=== PATIENT | male | born 1940 | race Caucasian/White ===

== ENCOUNTER 2023-09-26 16:01 | Inpatient (IN) | payer MEDICARE, SELFPAY ==
[2023-09-26] VITALS (13 sets, daily range): BP systolic 77–122; BP diastolic 50–69; BMI 32.6
[2023-09-26 12:03] LABS: % Basophils 0.1 % (0-2); % Eosinophils 0.1 % (0-6); % Immature Granulocytes 0.5 % (0-0.5); % Monocytes 8.3 % (1.7-9.3); Absolute Immature Granulocytes 0.1 10^3/uL (0-0.05); Absolute Lymphocytes 1.6 10^3/uL (1.2-3.4); Absolute Monocytes 1.2 10^3/uL (0.1-0.6); Absolute Neutrophils 11.5 10^3/uL (1.4-6.5); Hematocrit 28.5 % (39.0-52.0); Hemoglobin 9.3 g/dL (13.0-18.0); Mean Corp Hgb Conc. 32.6 g/dL (33.0-37.0); Mean Corpuscular Hgb 31.2 pg (27.0-31.0); Mean Corpuscular Volume 95.6 fL (80.0-94.0); Mean Platelet Volume 11.1 fL (7.4-10.4); Nucleated Red Blood Cells % 0 % (-); Platelet Count 420 10^3/uL (130-400); Red Blood Cell Count 2.98 10^6/uL (4.70-6.10); Red Cell Dist. Width 16.3 % (11.5-14.5); White Blood Cell Count 14.4 10^3/uL (4.8-10.8)
[2023-09-26] MEDS: TYLENOL 1000 MG PO (12:09)
[2023-09-26 12:16] LABS: Lactic Acid 2.5 mmol/L (0.7-2.0)
[2023-09-26 12:20] LABS: ALT (SGPT) 16 U/L (0-50); AST (SGOT) 20 U/L (17-59); Albumin 3.9 g/dl (3.5-5.0); Alkaline Phosphatase 78 U/L (38-126); Blood Urea Nitrogen 31 mg/dl (9-20); Calcium 9.2 mg/dl (8.4-10.2); Carbon Dioxide 22 mmol/L (22-30); Chloride 101 mmol/L (98-107); Estimated Creatinine Clearance 56 ml/min; Glucose 111 mg/dl (70-99); Potassium 3.8 mmol/L (3.5-5.1); Sodium 137 mmol/L (135-145); Total Bilirubin 1.4 mg/dl (0.2-1.3); Total Protein 7.5 g/dl (6.3-8.2); eGFR 50.49
--- NOTE | 2023-09-26 12:51 | ED.GENMED ---
History of Present Illness
General
Chief Complaint: Skin Problem
Time Seen by Provider: 09/26/23 12:23
Travel History
Have you had any contact with someone who has COVID-19?: No
Do you have any symptoms of coronavirus? Fever > 100 degrees, chills, cough, shortness of breath, sore throat, loss of taste or smell, muscle aches, or headache?: No
History of Present Illness
History of Present Illness:
HPI: Patient presents with ongoing/worsening right buttock wound. He is found to be febrile. The patient is currently residing at [facility]. He denies urinary symptoms and denies any pneumonia type of symptoms.
EXAM:
GENERAL: The patient appears chronically ill and generally debilitated. Elevated BMI noted.
HEENT: Moist oral mucosa
CARDIOVASCULAR: No murmurs, normal heart rate, regular rhythm, No chest wall tenderness
PULMONARY: No respiratory distress, breath sounds are clear and equal
ABDOMEN: Soft with no peritoneal signs, no tenderness
NEUROLOGIC: Fair strength all extremities, no coordination deficits
PSYCHIATRIC: Appropriate mental status, normal insight and judgement
EXTREMITIES: Nontender, no edema, moves all extremities equally
SKIN: There is a large area of indurated tissue versus abscess with overlying erythema to the right buttock
TIME OF INITIAL ENCOUNTER: 12:45 PM
NUMBER AND COMPLEXITY OF PROBLEMS ADDRESSED AT THE ENCOUNTER
� Chronic conditions affecting care: High blood pressure, morbid obesity, diabetes, polyneuropathy
� Acute Exacerbation and/or Progression of Chronic Illness: This is an acute problem
� Differential Diagnosis includes: Cellulitis, sepsis, bacteremia, abscess
AMOUNT AND/OR COMPLEXITY OF DATA TO BE REVIEWED AND ANALYZED
� I performed an independent evaluation of and my interpretation is:
EKG:
CT: CT personally reviewed and shows marked inflammatory changes at the right buttock without abscess
X-rays:
Laboratory Studies: White count 14.4, hemoglobin 9.3, creatinine 1.4, lactic 2.5
Other:
� Review of other/old records: I reviewed the transfer/discharge report from [facility]
� Clinical information was obtained by an independent historian: None needed
� Prescriptions/Medications Considered but not given:
� Further testing considered but not performed:
RISK OF COMPLICATIONS AND/OR MORBIDITY OR MORTALITY OF PATIENT MANAGEMENT
� Social determinants of health affecting care: The patient presents from [facility]
� Discussion with other providers: Hospitalist for admission at 2:35 PM
� Escalation of care including admission/observation vs risk of discharge considered: The patient is likely septic. He is febrile with leukocytosis and has an elevated lactic acid. I have ordered vancomycin as I am concerned
for infection of the right buttock. We gave IV fluids. On reassessment at 2:40 PM, the patient appears fairly comfortable.
Phy Exam
Physical Exam
Physical Exam:
See HPI
Course
Orders/Labs/Results
Orders:
Orders
09/26/23 11:41
Electrocardiogram (*1) Urgent
Reason for Study: Other
Other Reason for Exam: Possible Sepsis
Cardiac Monitoring- Treatment ONCE
EKG- Treatment ONCE
IV Insert/Care/Rem.- Treatment PRN
O2 Therapy [RESP] Urgent
Titrate/Wean O2 to maintain O2 sat greater than (%): 93
Special Instructions: TO MAINTAIN CONTINUOUS O2 SATS > OR = 93%
Pulse Ox/cont/shift [RESP] Urgent
Quantity: 1
Special Instructions: CONTINUOUS
09/26/23 11:45
Blood Culture Q30M
CAROLY[facility] Source: Blood/Venous
Specimen Description:
Comment: FROM 2 SEPARATE SITES
09/26/23 11:46
Complete Blood Count/With Diff Urgent
Comprehensive Metabolic Panel Urgent
Lactic Acid Q4H
Comment: ON ICE, CANCEL 2ND ORDER IF FIRST LACTIC ACID LEVEL <2
Blood Culture Q30M
CAROLYNE Source: Blood/Venous
Specimen Description:
Comment: FROM 2 SEPARATE SITES
09/26/23 12:02
Acetaminophen [Tylenol] 1,000 mg PO NOW STA
09/26/23 12:49
CT Pelvis With Iv Contrast Urgent
Comment:
Reason For Exam: sepsis, eval R buttock abscess vs cellulitis
0.9% Sodium Chloride 1000 ml [Nss] 1,000 ml IV BOLUS
09/26/23 14:31
Vancomycin [Vancocin] 2,000 mg 0.9% Sodium Chloride 500 ml [Nss] 500 ml IV NOW
09/26/23 14:35
Wound Culture [Wound/Abscess/Other Culture] Urgent
CAROLYNE Source: Decubitis Ulcer
Specimen Description:
09/26/23 15:45
Lactic Acid Q4H
Comment: ON ICE, CANCEL 2ND ORDER IF FIRST LACTIC ACID LEVEL <2
Abnormal Lab Results
09/26/23
11:46
WBC 14.4 H 10^3/uL
(4.8-10.8)
RBC 2.98 L 10^6/uL
(4.70-6.10)
Hgb 9.3 L g/dL
(13.0-18.0)
Hct 28.5 L %
(39.0-52.0)
MCV 95.6 H fL
(80.0-94.0)
MCH 31.2 H pg
(27.0-31.0)
MCHC 32.6 L g/dL
(33.0-37.0)
RDW 16.3 H %
(11.5-14.5)
Plt Count 420 H 10^3/uL
(130-400)
MPV 11.1 H fL
(7.4-10.4)
Abs Immat Gran (auto) 0.1 H 10^3/uL
(0-0.05)
Absolute Neuts (auto) 11.5 H 10^3/uL
(1.4-6.5)
Absolute Monos (auto) 1.2 H 10^3/uL
(0.1-0.6)
Neutrophils % 80.0 H %
(42.2-75.2)
Lymphocytes % 11.0 L %
(20.5-51.1)
BUN 31 H mg/dl
(9-20)
Creatinine 1.4 H mg/dL
(0.7-1.3)
Glucose 111 H mg/dl
(70-99)
Lactic Acid 2.5 H mmol/L
(0.7-2.0)
Total Bilirubin 1.4 H mg/dl
(0.2-1.3)
09/26/23 11:46
09/26/23 11:46
Vital Signs
Initial and Last Documented VS:
Initial Vital Signs
Temp Resp
102.5 F H 16
09/26/23 11:38 09/26/23 11:38
Last Documented Vital Signs
Temp Pulse Resp BP Pulse Ox
102.5 F H 93 21 109/61 94
09/26/23 11:38 09/26/23 12:30 09/26/23 12:30 09/26/23 11:41 09/26/23 12:15
*Critical Care Note
Total Time (30-74mins, 75-104mins- exclusive of procedures): Not Applicable
ED Attending Note
-
Portions of this chart may have been created with voice recognition software.� Occasional wrong word or��sound alike� substitutions may have occurred due to the inherent limitations of voice recognition software.
Discharge Plan
Departure
Patient Disposition: Admit
Date of Disposition: 09/26/23
Time of Disposition: 14:37
Presentation/result/management discussed w/ accepting MD/DO: Hospitalist
Discharge Problem:
Sepsis
Referrals:
Payam De Souza I., DO [Family Provider] -
Interventions
Interventions:
*Risk Screen - Suicide Last Done: 09/26/23 11:38
*General Assessment Last Done: 09/26/23 11:38
*Neglect/Abuse Screening Last Done: 09/26/23 11:38
*ED COVID-19 Vaccine History Last Done: 09/26/23 11:38
Discharge Date and Time
Print Language: YAKUT
[2023-09-26] MEDS: NSS 1000 IV ×4 (13:23→18:29)
[2023-09-26] MEDS: VANCOCIN 540 MG IV (15:30)
[2023-09-26 15:41] LABS: Lactic Acid 1.5 mmol/L (0.7-2.0)
--- NOTE | 2023-09-26 15:44 | W.PN.UPDATE ---
Update Note
Progress Note Update
I saw and examined the patient.
The MANAGER PRIMARY CARE or PA's note was reviewed and I agree with the note.
Comment: 83-year-old male who presents from his [place] [facility] with a chief complaint of worsening right buttock wound and fever.
91/54, 78, 16, 102.5 �F, 95% on room air
No acute distress, awake and alert
Regular rate and rhythm, normal S1-S2
Clear to auscultation bilaterally
Right buttock with ulcer that is approximately 3 cm in diameter. There is no drainage. There is surrounding cellulitis and induration without fluctuance.
Lab Results
24 09/26/23
11:46 15:19
WBC 14.4 H
RBC 2.98 L
Hgb 9.3 L
Hct 28.5 L
MCV 95.6 H
MCH 31.2 H
MCHC 32.6 L
RDW 16.3 H
Plt Count 420 H
MPV 11.1 H
Abs Immat Gran (auto) 0.1 H
Absolute Neuts (auto) 11.5 H
Absolute Lymphs (auto) 1.6
Absolute Monos (auto) 1.2 H
Absolute Eos (auto) 0.0
Absolute Basos (auto) 0.0
Immature Gran % 0.5
Neutrophils % 80.0 H
Lymphocytes % 11.0 L
Monocytes % 8.3
Eosinophils % 0.1
Basophils % 0.1
Nucleated RBC % 0
Sodium 137
Potassium 3.8
Chloride 101
Carbon Dioxide 22
BUN 31 H
Creatinine 1.4 H
Estimated Creat Clear 56
eGFR 50.49
Glucose 111 H
Lactic Acid 2.5 H 1.5
Calcium 9.2
Total Bilirubin 1.4 H
AST 20
ALT 16
Alkaline Phosphatase 78
Total Protein 7.[address] pelvis: Marked edematous/inflammatory changes of the superficial right gluteal soft tissues without findings to confirm accompanying well-formed abnormal focal fluid collection.
Severe sepsis due to R buttock cellulitis:
-IV Vanco/Zosyn
-30cc/kg NS bolus followed by maintenance IVFs
-follow WCx/BCxs
-c/s ID
-trend lactic acid and WBC
--- NOTE | 2023-09-26 15:45 | HPS.HSE ---
Family Physician
-
Family Physician: Payam De Souza
Chief Complaint
-
wound
History of Present Illness
83-year-old with past medical history for DVT, hypertension, insomnia, PVD, type 2 diabetes, hyperlipidemia, depression presented to us with right buttock wound for 1 year. It progressively got worse. Yesterday started bothering him. Patient
denied any fever or chills, chest pain, short of breath. Patient denied any, dizziness, syncopal episode patient denied abdominal pain, nausea, vomiting, diarrhea.. Denied dysuria hematuria.
On arrival patient was in sepsis. Received fluids, Zosyn, Vanco in ER admitting for further management.
Medical History
Past Medical History
Past Medical History: Reports Other
Additional Past Medical History:
DVT
Hypertension
Insomnia
PVD
Type 2 diabetes
Hyperlipidemia
Depression
Past Surgical History: Reports None
Additional Past Surgical History:
Appendectomy
Social History
Tobacco: Non-smoker
Alcohol: None
Drug: None
Personal: Single
Living: Halfway
Family History
Family History: Not pertinent
Allergies / Home Medications
Allergies reflects when Allergies were last updated in [employer].
Home Medications with original date entered in [employer]
Allergy/Medication List:
Allergies
Allergy/AdvReac Type Severity Reaction Status Date / Time
No Known Allergies Allergy Unverified 09/26/23 11:41
Home Medications
acetaminophen 325 mg tablet (Tylenol) 650 mg PO Q6HPRN PRN mild pain 09/26/23
apixaban 5 mg tablet (Eliquis) 5 mg PO BID 09/26/23
atorvastatin 10 mg tablet (Lipitor) 10 mg PO DAILY 09/26/23
bisacodyl 10 mg rectal suppository (Dulcolax (bisacodyl)) 10 mg CO DAILYPRN PRN if no bm aftr mom 09/26/23
cetirizine 10 mg tablet (Zyrtec) 10 mg PO DAILY 09/26/23
cholecalciferol (vitamin D3) 50 mcg (2,000 unit) tablet (Vitamin D3) 50 mcg PO DAILY 09/26/23
dextromethorphan-guaifenesin 10 mg-100 mg/5 mL oral syrup 10 ml PO Q6HPRN PRN cough 09/26/23
hydrochlorothiazide 25 mg tablet 25 mg PO DAILY 09/26/23
loperamide 2 mg tablet 2 mg PO Q6HPRN PRN diarrhea 09/26/23
losartan 50 mg tablet 50 mg PO DAILY 09/26/23
magnesium hydroxide 400 mg/5 mL oral suspension (Milk of Magnesia) 2,400 mg PO HSPRN PRN if no bm on 3rd day 09/26/23
metformin 1,000 mg tablet 1,000 mg PO BID 09/26/23
metoprolol tartrate 50 mg tablet (Lopressor) 50 mg PO BID 09/26/23
psyllium 1 packet PO DAILY 09/26/23
sitagliptin phosphate 100 mg tablet (Januvia) 100 mg PO DAILY 09/26/23
therapeutic multivitamin 1 tab PO DAILY 09/26/23
venlafaxine 150 mg capsule,extended release 24 hr (Effexor XR) 150 mg PO DAILY 09/26/23
zolpidem 10 mg tablet 10 mg PO HS 09/26/23
Review of Systems
-
Constitutional: Reports No Symptoms
EENT: Reports No Symptoms
Respiratory: Reports No Symptoms
Cardiac: Reports No Symptoms
Abdomen/GI: Reports No Symptoms
: Reports No Symptoms
Musculoskeletal: Reports No Symptoms
Skin: Reports Other (Buttocks wound)
Neurological: Reports No Symptoms
Endocrine: Reports No Symptoms
Hematologic/Lymphatic: Reports No Symptoms
Psych: Reports No Symptoms
Physical Exam
Vital Signs
Vital Signs
Temp Pulse Resp BP Pulse Ox
99.5 F 78 16 91/54 95
09/26/23 15:38 09/26/23 15:35 09/26/23 15:35 09/26/23 15:13 09/26/23 15:05
Physical Exam
General: Well Developed, Well Nourished and No Apparent Distress
HEENT: NormoCephalic, Moist mucous membranes and Atraumatic
Respiratory: Clear
Cardiac: S1/S2 and Regular Rhythm; No Murmur or Rub
GI: Soft, Non Tender, Non Distended and Normal Bowel Sounds; No Organomegaly
Rectal: Deferred by Provider
Musculoskeletal: No Clubbing, No Cyanosis and No Edema
Skin: Rash and Other (Buttock wound. Bilateral lower extremities scaly skin)
Neuro: AO x 3 and Nonfocal/grossly intact
Psych: Calm
Laboratory Results
-
09/26/23 11:46
09/26/23 11:46
Laboratory Results
Lactic Acid 1.5 mmol/L (0.7-2.0) 09/26/23 15:19
Total Bilirubin 1.4 mg/dl (0.2-1.3) H 09/26/23 11:46
AST 20 U/L (17-59) 09/26/23 11:46
ALT 16 U/L (0-50) 09/26/23 11:46
Alkaline Phosphatase 78 U/L (38-126) 09/26/23 11:46
Data Reviewed
-
Diagnostic Radiology: Report Reviewed by me
Lab Data: Labs Reviewed by me
Impression/Plan
-
# Sepsis secondary to cellulitis wound
-Sepsis as evident by fever, elevated WBC, elevated lactic acid, hypertension
-Fluids continued
-IV Vanco and Zosyn continued
-Tylenol as needed for fever
-Trend lactic
-Wound culture sent from ER
-Blood culture sent from ER
-ID and wound care consulted
-Pelvis CT with Marked edematous/inflammatory changes of the superficial right gluteal soft tissues without findings to confirm accompanying well-formed abnormal focal fluid collection.
# Anemia likely chronic
-Hemoglobin stable at 9.3
-Continue to monitor
# Acute kidney injury likely dehydration
-Creatinine 104
-Fluids continued
-Monitor BMP in a.m.
# History of DVT
-Eliquis continued
#hyperlipidemia
-Statin continued
# History of hypertension
-Patient is hypotensive in ER
-hold losartan and HCTZ
# Type 2 diabetes
- hold metformin and Januvia
-Sliding scale
-Carb controlled diet
#depression
-Effexor continued
# CODE STATUS
-Full code
--- NOTE | 2023-09-26 16:19 | CON.ID ---
Consultation
-
Date/Time Consultation Requested: 09/26/2023 1530
Date/Time Consultation Performed: 09/26/2023 1600
Requesting Provider: Anastacia Barbosa
Performing Provider: Dr. Young
Reason for Consultation: Right buttock wound
Chief Complaint / Past History
History of Present Illness
Félix Whitlock is an 83-year-old man with a significant past medical history of spinal stenosis and functional paraplegia being evaluated at the request of Anastacia Barbosa regarding a right buttock abscess. History is obtained from chart review, along with
patient interview.
The patient reports that he has been nonambulatory for approximately the past 5 years secondary to spinal stenosis. He has been a resident of multiple nursing facilities, and most recently was admitted to [facility] approximately 8 weeks ago.
He was sent to the emergency room today secondary to an ongoing and worsening right buttock wound noted at the facility. He reports that he has had this wound for some period of time, although he cannot characterize how long. He reports that it
has been growing in size and ultimately he was sent in for further evaluation. Here he was found to have a leukocytosis, and was noted to be febrile to 102.5 degrees upon presentation.
He currently denies fevers prior to admission. He denies any pain in the area. He notes that he is wheelchair-bound for most of the day or in bed or sitting on the side of the bed.
Past History
Additional Past Medical History:
Spinal stenosis
Functional paraplegia/wheelchair-bound
Additional Past Surgical History:
Lumbar laminectomy
Cervical laminectomy
Appendectomy
Allergy History:
No Known Allergies Allergy (Unverified 09/26/23 11:41)
Medications Reviewed: Yes
Current Antibiotics:
Vanco
Zosyn
Social History
Tobacco: Non-Smoker
Alcohol: None
Personal:
Living: Long Term
Employment: Retired
Family History
Family History: Not Pertinent
Review of Systems
Vital Signs
Temp Pulse Resp BP Pulse Ox
99.5 F 75 16 97/51 95
09/26/23 15:38 09/26/23 16:15 09/26/23 15:35 09/26/23 16:00 09/26/23 15:05
Physical Exam
Physical Exam
Constitutional: Comfortable, Chronically Ill and Non-toxic
Eyes: No Conjunctival Hemorrhage and Sclera Anicteric
Cardiovascular: S1/S2; Negative S3/S4
Pulmonary: Non Labored
Gastrointestinal: Soft, Non Tender, Non Distended and Normal Bowel Sounds
Wound: Other (Right buttock/ischial wound, currently unstageable with 2 to 3 cm overlying eschar, surrounding induration and erythema.)
Neurological: Awake and Alert
Psychological: Calm
Lab / Diagnostic Study Results
09/26/23 11:46
09/26/23 11:46
Abs Immat Gran (auto) 0.1 10^3/uL (0-0.05) H 09/26/23 11:46
Absolute Neuts (auto) 11.5 10^3/uL (1.4-6.5) H 09/26/23 11:46
Absolute Lymphs (auto) 1.6 10^3/uL (1.2-3.4) 09/26/23 11:46
Absolute Monos (auto) 1.2 10^3/uL (0.1-0.6) H 09/26/23 11:46
Absolute Basos (auto) 0.0 10^3/uL (0-0.2) 09/26/23 11:46
Immature Gran % 0.5 % (0-0.5) 09/26/23 11:46
Neutrophils % 80.0 % (42.2-75.2) H 09/26/23 11:46
Lymphocytes % 11.0 % (20.5-51.1) L 09/26/23 11:46
Monocytes % 8.3 % (1.7-9.3) 09/26/23 11:46
Eosinophils % 0.1 % (0-6) 09/26/23 11:46
Basophils % 0.1 % (0-2) 09/26/23 11:46
Lactic Acid 1.5 mmol/L (0.7-2.0) 09/26/23 15:19
Microbiology Results
Micro:
09/26/23 15:19 Wound Culture - Pending
Decubitis Ulcer Gram Stain - Pending
09/26/23 15:19 Blood Culture - Pending
Blood/Venous
09/26/23 11:46 Blood Culture - Pending
Blood/Venous
Imaging:
09/26/2023 CT pelvis with IV contrast: Marked edematous/inflammatory changes of the superficial right gluteal soft tissues, without findings to confirm accompanying well-formed abnormal focal fluid collection. Please see full dictation for
additional detail.
Assessment / Plan
Right buttock pressure wound (unstageable secondary to overlying eschar)
Fever
Leukocytosis
Renal insufficiency
Spinal stenosis
Functional paraplegia/wheelchair-bound
Recommendations:
Agree with initiation of broad-spectrum empiric antibiotics (vancomycin; Zosyn)
While patient remains on vancomycin, follow levels closely to prevent renal toxicity.
Would recommend surgical evaluation as overlying eschar may need to be unroofed to determine extent / stage of pressure ulcer.
Wound culture has been obtained; will await further results to guide antibiotic selection/de-escalation. Of note, culture is superficial only and may not reflect underlying organisms.
Follow white count and temperature curve.
[2023-09-26 17:56] LABS: Glucose - Point of Care 85 mg/dl (70-99)
--- NOTE | 2023-09-26 18:21 | PTCARENOTE ---
Pt admitted from ED. Buttock wound x2 on right button, one large, one small. foams placed. Pt unable to void. Bladder scan >600. mcbrdie placed with 1000ml output. vital signs stable. oriented to unit. resting comfortably
[2023-09-26] MEDS: NOVOLOG FLEXPEN-LOW RESISTANCE SC (18:23)
[2023-09-26] MEDS: ZOSYN 50 IV ×2 (18:28→21:58)
--- NOTE | 2023-09-26 19:37 | PHA.VAN.IN ---
Assessment
- Assessment
Renal Function: Unknown baseline (Scr elevated)
Maximum Temperature: 102.5
Concomitant Antimicrobials: Piperacillin/tazobactam
AUC Dosing Plan
- Monitoring
Will order random level for 6/1 AM to assess clearance with renal function.
Plan
- Plan
Initial / Loading Dose: Vancomycin 2000mg given at 1530
Will initially dose by level due to elevated Scr.
Pharmacokinetics Vancomycin I
- -
Patient Age: 83
Patient Sex: Male
Vancomycin Day #: 1
Indication: Skin And Soft Tissue
Requesting Provider: Dr. Young
Pertinent Antimicrobial Allergies:
NKA
Height / Weight:
Height 6 ft 2 in
Actual Weight 115 kg
Pertinent Past Medical History: BMI ~33, functional paraplegia, [place]
- Vital Signs / Lab Results
Temp Pulse Resp BP Pulse Ox
97.9 F 80 15 122/69 92
09/26/23 19:31 09/26/23 18:00 09/26/23 18:00 09/26/23 18:00 09/26/23 16:48
Lab Results - Hematology
09/26/23
11:46
WBC 14.4 H
Lab Results - Chemistry
09/26/23
11:46
BUN 31 H
Creatinine 1.4 H
Estimated Creat Clear 56
Albumin 3.9
09/26/23 09/26/23
11:46 15:19
Lactic Acid 2.5 H 1.5
Microbiology Results
09/26/23 15:19 Gram Stain - Preliminary
Decubitis Ulcer
[2023-09-26] MEDS: ELIQUIS 5 MG PO (20:48)
[2023-09-26 21:44] LABS: Glucose - Point of Care 112 mg/dl (70-99)
--- NOTE | 2023-09-26 21:48 | PTCARENOTE ---
Received pt at change of shift. AAOx3. Pt offers no complaints. Turned pt onto right side using an air cushion; able to tolerate this turn. Foam on buttock C/D/I. Resting in bed with call elizabeth in reach.
[2023-09-27] VITALS (12 sets, daily range): BP systolic 96–151; BP diastolic 50–94
[2023-09-27 04:28] LABS: Hematocrit 25.1 % (39.0-52.0); Hemoglobin 8.3 g/dL (13.0-18.0); Mean Corp Hgb Conc. 33.1 g/dL (33.0-37.0); Mean Corpuscular Volume 96.9 fL (80.0-94.0); Mean Platelet Volume 10.9 fL (7.4-10.4); Platelet Count 362 10^3/uL (130-400); Red Blood Cell Count 2.59 10^6/uL (4.70-6.10); Red Cell Dist. Width 16.5 % (11.5-14.5); White Blood Cell Count 9.5 10^3/uL (4.8-10.8)
[2023-09-27 04:54] LABS: Vancomycin Random 11.7 ug/ml
[2023-09-27 05:00] LABS: Blood Urea Nitrogen 24 mg/dl (9-20); Calcium 8.4 mg/dl (8.4-10.2); Carbon Dioxide 18 mmol/L (22-30); Chloride 109 mmol/L (98-107); Estimated Creatinine Clearance 78 ml/min; Glucose 87 mg/dl (70-99); Potassium 3.9 mmol/L (3.5-5.1); Sodium 137 mmol/L (135-145); eGFR > 60.00
[2023-09-27] MEDS: ZOSYN 50 IV ×4 (05:20→21:07)
--- NOTE | 2023-09-27 08:01 | W.PN.HOSP.TC ---
Today's Communication/Plan
-
see bold
Assessment / Plan
Assessment / Plan
Gen: NAD, AAOx3, appears chronically ill.
Eyes: EOMI, PERRLA, no scleral icterus.
Neck: supple.
CV: RRR, +S1/S2, no m/r/g.
Resp: CTAB, no rales, wheezes, or rhonchi.
Abd: +BS, soft, NT, ND
Skin: B/L LE chronic venous stasis dermatitis
Neuro: CN 2-12 intact, non-focal.
Psych: Normal mood and affect.
09/26/23 15:19 Blood/Venous Blood Culture - Preliminary
Positive culture in progress
09/26/23 15:19 Blood/Venous Gram Stain - Preliminary
09/26/23 11:46 Blood/Venous Blood Culture - Preliminary
Positive culture in progress
09/26/23 11:46 Blood/Venous Gram Stain - Final
09/26/23 15:19 Decubitis Ulcer Gram Stain - Preliminary
CT pelvis: Marked edematous/inflammatory changes of the superficial right gluteal soft tissues without findings to confirm accompanying well-formed abnormal focal fluid collection.
Severe sepsis due to R buttock cellulitis:
-IV Vanco/Zosyn as per ID
-30cc/kg NS bolus given on admission, cont maintenance IVFs
-follow WCx/BCxs. Repeat BCxs 09/28/23AM.
-leukocytosis and lactic acidosis have resolved
Other problems:
Obesity due to excess calories: Encourage wt loss, affects all aspects of care
Chronic anemia: Trend Hb (acute drop likely dilutional at this point)
JUAN due to sepsis/dehydration: Improving with IVFs. Trend HCO3-
h/o DVT: cont Eliquis
HLD: cont statin
Essential hypertension: Holding antihypertensives
DM2: SSI/accuchecks. Check a1c.
Depression: cont Effexor
FULL/Eliquis
Anticipated Discharge: > 48 hours
Subjective/Interval History
-
Date of Service: September 27, 2023
No new complaints.
Objective Data
-
Labs:
Laboratory Results
09/27/23
04:17
WBC 9.5
Hgb 8.3 L
Hct 25.1 L
Plt Count 362
Sodium 137
Potassium 3.9
Chloride 109 H
Carbon Dioxide 18 L
BUN 24 H
Creatinine 1.0
Glucose 87
Calcium 8.4
Vital Signs:
Vital Signs
Temp Pulse Resp BP Pulse Ox
98.7 F 89 15 132/67 100
09/27/23 07:00 09/27/23 06:00 09/27/23 06:00 09/27/23 06:00 09/27/23 06:00
I&O
09/26/23 09/27/23 09/28/23
06:59 06:59 06:59
Intake Total 1060 / 1060
Output Total 2400 / 2400
Balance -1340 / -1340
[2023-09-27] MEDS: NOVOLOG FLEXPEN-LOW RESISTANCE SC ×3 (08:10→16:38)
[2023-09-27 08:12] LABS: Glucose - Point of Care 99 mg/dl (70-99)
--- NOTE | 2023-09-27 08:27 | W.PN.ID1 ---
Date of Service
Date of Service: September 27, 2023
Today's Communication
Continue antibiotics. See below�
Assessment / Plan
Right buttock pressure wound (unstageable secondary to overlying eschar)
Bacteremia with gram-positive cocci
Fever
Leukocytosis
Renal insufficiency
Spinal stenosis
Functional paraplegia/wheelchair-bound
Recommendations:
Continue with vancomycin and Zosyn.
Repeat blood cultures now.
While patient remains on vancomycin, follow levels closely to prevent renal toxicity.
--> Would recommend surgical evaluation as overlying eschar may need to be unroofed to determine extent / stage of pressure ulcer.
Wound culture has been obtained; will await further results to guide antibiotic selection/de-escalation. Of note, culture is superficial only and may not reflect underlying organisms.
Follow white count and temperature curve.
����������������������������������������������������������
Chief Complaint
-: Bacteremia and Other (Right buttock wound infection)
Subjective / Review of Systems
Review of Systems: No Fever and No Chills
Vital Signs / Physical Exam
Vital Signs
Vital Signs
Temp Pulse Resp BP Pulse Ox
98.7 F 89 15 132/67 100
09/27/23 07:00 09/27/23 06:00 09/27/23 06:00 09/27/23 06:00 09/27/23 06:00
Physical Exam
Constitutional: No Acute Distress, Comfortable, Chronically Ill and Non-toxic
Eyes: No Conjunctival Hemorrhage and Sclera Anicteric
Cardiovascular: S1/S2; Negative S3/S4
Pulmonary: Clear and Non Labored; Negative Wheezes, Rales or Rhonchi
Gastrointestinal: Soft and Non Tender
Wound: Other (Right buttock wound dressed.)
Neurological: Awake and Alert
Psychological: Calm
Objective Data
Lab Data
Lab Results
09/27/23 04:17
09/27/23 04:17
Estimated Creat Clear 78 ml/min 09/27/23 04:17
Lactic Acid 1.5 mmol/L (0.7-2.0) 09/26/23 15:19
Total Bilirubin 1.4 mg/dl (0.2-1.3) H 09/26/23 11:46
AST 20 U/L (17-59) 09/26/23 11:46
ALT 16 U/L (0-50) 09/26/23 11:46
Alkaline Phosphatase 78 U/L (38-126) 09/26/23 11:46
Most recent labs reviewed.
Micro Results:
09/26/23 15:19 Blood Culture - Preliminary
Blood/Venous Positive culture in progress
Gram Stain - Preliminary
09/26/23 11:46 Blood Culture - Preliminary
Blood/Venous Positive culture in progress
Gram Stain - Final
09/26/23 19:41 MRSA Screen - Pending
Nose
09/26/23 15:19 Wound Culture - Pending
Decubitis Ulcer Gram Stain - Preliminary
Imaging:
09/26/2023 CT pelvis with IV contrast: Marked edematous/inflammatory changes of the superficial right gluteal soft tissues, without findings to confirm accompanying well-formed abnormal focal fluid collection. Please see full dictation for
additional detail.
--- NOTE | 2023-09-27 08:27 | PHA.VAN.FU ---
Vancomycin Assessment / Plan
- Assessment
Renal Function: SCR Decreasing (SCr 1.4 ->1.0 unknown baseline)
WBC's are: WNL
In the past 24 hrs, patient has been: Febrile (102.5 on admission)
Concomitant Antimicrobials: piperacillin-tazobactam
- Assessment - Therapeutic Drug Monitoring
Random Level: 11.7 - 13 hours post vanc 2000 mg
- Dosing Plan
Continue: to dose by level
Dosing by Level: Re-dose today (1500 mg (13 mg/kg))
Continuing to dose by level due to unknown baseline SCr and functional paraplegia
- Monitoring Plan
Random Level: 6/2 am
- Follow Up
Pharmacy will continue to follow.
Vancomycin Follow UP
- -
Patient Age: 83
Patient Sex: Male
Vancomycin Day #: 2
Indication: Skin And Soft Tissue
Requesting Provider: Dr. Young
Pertinent Antimicrobial Allergies:
NKA
Height / Weight:
Height 6 ft 2 in
Actual Weight 115 kg
Pertinent Past Medical History: BMI ~33, functional paraplegia, [place] resident
- Vital Signs / Lab Results
Temp Pulse Resp BP Pulse Ox
98.7 F 89 15 132/67 100
09/27/23 07:00 09/27/23 06:00 09/27/23 06:00 09/27/23 06:00 09/27/23 06:00
Lab Results - Hematology
09/26/23 09/27/23
11:46 04:17
WBC 14.4 H 9.5
Lab Results - Chemistry
09/26/23 09/27/23
11:46 04:17
BUN 31 H 24 H
Creatinine 1.4 H 1.0
Estimated Creat Clear 56 78
Albumin 3.9
09/26/23 09/26/23
11:46 15:19
Lactic Acid 2.5 H 1.5
Microbiology Results
09/26/23 15:19 Blood Culture - Preliminary
Blood/Venous Positive culture in progress
Gram Stain - Preliminary
09/26/23 11:46 Blood Culture - Preliminary
Blood/Venous Positive culture in progress
Gram Stain - Final
09/26/23 15:19 Gram Stain - Preliminary
Decubitis Ulcer
Therapeutic Drug Monitoring
Random Vancomycin 11.7 ug/ml 09/27/23 04:17
[2023-09-27] MEDS: NSS 1000 IV ×2 (08:31→21:07)
[2023-09-27] MEDS: VITAMIN D3 (cholecalciferol) 50 MCG PO (08:32)
[2023-09-27] MEDS: LIPITOR 10 MG PO (08:32)
[2023-09-27] MEDS: METAMUCIL, KONSYL 1 PACKET PO (08:32)
[2023-09-27] MEDS: THERAGRAN 1 TABLET PO (08:32)
[2023-09-27] MEDS: ELIQUIS 5 MG PO (08:32)
[2023-09-27] MEDS: ZYRTEC 10 MG PO (08:32)
[2023-09-27] MEDS: EFFEXOR XR 150 MG PO (08:32)
--- NOTE | 2023-09-27 10:08 | PTCARENOTE ---
Assumed care of pt from night RN, pt AAOx3, makes needs known. No c/o pain so far this shift. Repositioned in bed frequently. Dressing to sacrum CDI. + blood cultures, repeats ordered. Will continue to monitor through shift.
[2023-09-27] MEDS: VANCOCIN 300 ML IV (11:11)
[2023-09-27] MEDS: VANCOCIN 300 MG IV (11:11)
--- NOTE | 2023-09-27 11:27 | CON.GS ---
Medical History
-
Chief Complaint: RIGHT buttock wound
History of Present Illness:
Patient is a 83 yo M with a PMH of obesity, depression/anxiety, HTN, HLD, NIDDM, DVT (on Eliquis, LD 6/ AM), spinal stenosis s/p lumbar laminectomy and cervical laminectomy, functional paraplegia (wheelchair-bound), and s/p appendectomy. Mr. Whitlock
presents from his long-term at [facility] with a RIGHT buttock wound. He states that this has been present for years. He denies any prior operations or debridements at this site. He denies any worsening pain or active drainage. He does
state that he has some sensation to that area. He denies any soilage or contamination of that area. He denies any incontinence. He denies any prior fevers, though has been febrile in the hospital.
Past Medical History
Past Medical History: HTN, Hypercholesterolemia, NIDDM, Psychiatric (Depression/anxiety) and Other (Obesity, DVT, spinal stenosis, functional paraplegia)
Past Surgical History: Appendectomy and Orthopedic (Cervical and lumbar laminectomies)
Social History
Tobacco: Former Smoker
Alcohol: None
Drug: None
Living: [facility]
Family History
Family History: Reviewed & Noncontributory
Allergies / Home Medications
Allergy/AdvReac Type Severity Reaction Status Date / Time
No Known Allergies Allergy Unverified 09/26/23 11:41
�Medication �Instructions �Recorded �Confirmed �Type
acetaminophen 325 mg tablet 650 mg PO Q6HPRN PRN mild pain 09/26/23 09/26/23 History
(Tylenol)
apixaban 5 mg tablet (Eliquis) 5 mg PO BID Blood Clot 09/26/23 09/26/23 History
Prevention/Tx
atorvastatin 10 mg tablet (Lipitor) 10 mg PO DAILY High Cholesterol 09/26/23 09/26/23 History
bisacodyl 10 mg rectal suppository 10 mg NE DAILYPRN PRN if no bm 09/26/23 09/26/23 History
(Dulcolax (bisacodyl)) aftr mom
cetirizine 10 mg tablet (Zyrtec) 10 mg PO DAILY Allergies 09/26/23 09/26/23 History
cholecalciferol (vitamin D3) 50 50 mcg PO DAILY Supplement 09/26/23 09/26/23 History
mcg (2,000 unit) tablet (Vitamin
D3)
dextromethorphan-guaifenesin 10 10 ml PO Q6HPRN PRN cough 09/26/23 09/26/23 History
mg-100 mg/5 mL oral syrup
hydrochlorothiazide 25 mg tablet 25 mg PO DAILY Blood Pressure 09/26/23 09/26/23 History
loperamide 2 mg tablet 2 mg PO Q6HPRN PRN diarrhea 09/26/23 09/26/23 History
losartan 50 mg tablet 50 mg PO DAILY Blood Pressure 09/26/23 09/26/23 History
magnesium hydroxide 400 mg/5 mL 2,400 mg PO HSPRN PRN if no bm on 09/26/23 09/26/23 History
oral suspension (Milk of Magnesia) 3rd day
metformin 1,000 mg tablet 1,000 mg PO BID Diabetes 09/26/23 09/26/23 History
metoprolol tartrate 50 mg tablet 50 mg PO BID Blood Pressure 09/26/23 09/26/23 History
(Lopressor)
psyllium 1 packet PO DAILY Gastrointestinal 09/26/23 09/26/23 History
Issue
sitagliptin phosphate 100 mg 100 mg PO DAILY Diabetes 09/26/23 09/26/23 History
tablet (Januvia)
therapeutic multivitamin 1 tab PO DAILY Supplement 09/26/23 09/26/23 History
venlafaxine 150 mg 150 mg PO DAILY Mental Health 09/26/23 09/26/23 History
capsule,extended release 24 hr
(Effexor XR)
zolpidem 10 mg tablet 10 mg PO HS Sleep 09/26/23 09/26/23 History
Review of Systems
-
A 10 point review of systems was completed, and was negative except as per HPI.
Physical Exam
Vital Signs
Temp Pulse Resp BP Pulse Ox
101.0 F H 89 15 132/67 97
09/27/23 11:00 09/27/23 06:00 09/27/23 06:00 09/27/23 06:00 09/27/23 08:00
09/26/23 09/27/23 09/28/23
06:59 06:59 06:59
Actual Weight 115 kg
Body Mass Index (BMI) 32.6
Lab Results
09/27/23 04:17
09/27/23 04:17
WBC 9.5 10^3/uL (4.8-10.8) 09/27/23 04:17
Hgb 8.3 g/dL (13.0-18.0) L 09/27/23 04:17
Hct 25.1 % (39.0-52.0) L 09/27/23 04:17
Plt Count 362 10^3/uL (130-400) 09/27/23 04:17
Abs Immat Gran (auto) 0.1 10^3/uL (0-0.05) H 09/26/23 11:46
Neutrophils % 80.0 % (42.2-75.2) H 09/26/23 11:46
Physical Exam
General: Well Developed, Well Nourished and No Apparent Distress
HEENT: Normocephalic and Anicteric
Respiratory: Non Labored Respirations
Cardiac: Regular Rhythm
GI: Soft, Non Tender and Non Distended
Rectal: Other (RIGHT inferior buttock with a 5 cm area of induration and erythema, overlying skin abrasion, no active drainage, minimal tenderness, no significant fluctuance)
Skin: Warm and Dry
Data Reviewed
-
CT Scan: Image Personally Visualized and interpreted and Report Reviewed by me
Labs: Labs Reviewed by me
Assessment / Plan
-
Patient is an 83 yo M p/w RIGHT buttock cellulitis, possible abscess
CT scan imaging was reviewed and no definitive abscess or fluid collection identified. There is surrounding fat stranding and inflammation. No clearly defined fluctuance or abscess on exam. Increased risk for bleeding given recent Eliquis dose
this AM, prohibiting complete surgical evaluation and potential diagnostic I&D at this time. Recommend local wound care and IV antibiotics. Hold Eliquis for potential surgical intervention. Will reevaluate in 48 hours to assess for improvement on
antibiotics and potentially perform an I&D at that time. All questions answered.
-- ID consult noted, continue IV antibiotics
-- Hold Eliquis
-- Local wound care with off loading area, OK for hot compresses
-- Will re-evaluate patient in 48 hours to assess for improvement and potential need for I&D at that time
[2023-09-27 11:47] LABS: Glucose - Point of Care 99 mg/dl (70-99)
[2023-09-27 12:11] LABS: Glycohemoglobin (HgbA1c) 5.8 % (4.0-5.6)
[2023-09-27 16:36] LABS: Glucose - Point of Care 117 mg/dl (70-99)
[2023-09-27 21:16] LABS: Glucose - Point of Care 375 mg/dl (70-99)
--- NOTE | 2023-09-27 21:57 | PTCARENOTE ---
HS Accucheck resulted as 375, however due to Pt's recent numbers and baseline being well below this number- PCT was asked to recheck and acquired a blood sugar of 184. Both results were ported into [employer]. This nurse treated based on second BS
of 184. Will continue to monitor and assess.
[2023-09-27] MEDS: AMBIEN 5 MG PO (22:36)
[2023-09-28] VITALS (11 sets, daily range): BP systolic 116–142; BP diastolic 65–87; PULSE 99; O2SAT 96; BMI 32.5
--- NOTE | 2023-09-28 00:05 | PTCARENOTE ---
Assumed care of PT from RN. Pt AAOx3 appears to be resting in bed comfortably. Respiration even and unlabored. Pt made RN aware he asked previous RN for Ambien, RN had reached out to night MAINTENA[employer]PER[employer],5mg was ordered. Pt informed this RN at home he takes
'12.5mg extended release Ambien' and will not sleep without it. Education and Emotional support given. Pt has no other complaints at this time.
[2023-09-28] MEDS: NSS 1000 IV (04:31)
[2023-09-28] MEDS: ZOSYN 50 IV ×4 (04:31→21:41)
[2023-09-28 05:58] LABS: Vancomycin Random 11.2 ug/ml
[2023-09-28 06:02] LABS: Blood Urea Nitrogen 21 mg/dl (9-20); Calcium 8.2 mg/dl (8.4-10.2); Carbon Dioxide 17 mmol/L (22-30); Chloride 111 mmol/L (98-107); Estimated Creatinine Clearance 87 ml/min; Glucose 112 mg/dl (70-99); Potassium 3.8 mmol/L (3.5-5.1); Sodium 138 mmol/L (135-145); eGFR > 60.00
[2023-09-28 06:28] LABS: Hemoglobin 7.8 g/dL (13.0-18.0); Mean Corp Hgb Conc. 33.9 g/dL (33.0-37.0); Mean Corpuscular Hgb 31.5 pg (27.0-31.0); Mean Corpuscular Volume 92.7 fL (80.0-94.0); Mean Platelet Volume 11.1 fL (7.4-10.4); Platelet Count 380 10^3/uL (130-400); Red Blood Cell Count 2.48 10^6/uL (4.70-6.10); Red Cell Dist. Width 16.5 % (11.5-14.5); White Blood Cell Count 7.2 10^3/uL (4.8-10.8)
--- NOTE | 2023-09-28 08:33 | W.PN.ID1 ---
Date of Service
Date of Service: September 28, 2023
Today's Communication
Continue antibiotics.
Assessment / Plan
Right buttock pressure wound (unstageable secondary to overlying eschar)
Bacteremia with MRSA
- suspect right buttock source
Fever
Leukocytosis
Renal insufficiency
Spinal stenosis
Functional paraplegia/wheelchair-bound
Recommendations:
Continue with vancomycin and Zosyn for today.
Repeat blood cultures pending to assess for ongoing bacteremia VS clearance.
While patient remains on vancomycin, follow levels closely to prevent renal toxicity.
Wound culture with few GPC's; full culture pending.
Follow white count and temperature curve.
����������������������������������������������������������
Chief Complaint
-: Bacteremia and Other (Right buttock wound infection)
Subjective / Review of Systems
Review of Systems: No Fever and No Chills
Vital Signs / Physical Exam
Vital Signs
Vital Signs
Temp Pulse Resp BP Pulse Ox
98.1 F 86 16 137/77 95
09/28/23 04:22 09/28/23 06:00 09/28/23 06:00 09/28/23 06:00 09/28/23 04:00
Physical Exam
Constitutional: No Acute Distress, Comfortable and Non-toxic
Eyes: No Conjunctival Hemorrhage and Sclera Anicteric
Cardiovascular: S1/S2; Negative S3/S4
Pulmonary: Non Labored; Negative Wheezes or Rales
Gastrointestinal: Soft and Non Tender
Extremities: Edema; Negative Cyanosis or Erythema
Wound: Other (Right buttock wound dressed.)
Neurological: Awake and Alert
Psychological: Calm
Objective Data
Lab Data
Lab Results
09/28/23 05:20
09/28/23 05:01
Estimated Creat Clear 87 ml/min 09/28/23 05:01
Lactic Acid 1.5 mmol/L (0.7-2.0) 09/26/23 15:19
Total Bilirubin 1.4 mg/dl (0.2-1.3) H 09/26/23 11:46
AST 20 U/L (17-59) 09/26/23 11:46
ALT 16 U/L (0-50) 09/26/23 11:46
Alkaline Phosphatase 78 U/L (38-126) 09/26/23 11:46
Most recent labs reviewed.
Micro Results:
09/26/23 15:19 Wound Culture - Preliminary
Decubitis Ulcer Gram Stain - Preliminary
09/26/23 11:46 Blood Culture - Preliminary
Blood/Venous Staph aureus MRSA
Gram Stain - Final
09/27/23 10:55 Blood Culture - Pending
Blood/Venous
09/27/23 09:46 Blood Culture - Pending
Blood/Venous
09/26/23 15:19 Blood Culture - Preliminary
Blood/Venous Positive culture in progress
Gram Stain - Preliminary
09/26/23 19:41 MRSA Screen - Pending
Nose
Imaging:
09/26/2023 CT pelvis with IV contrast: Marked edematous/inflammatory changes of the superficial right gluteal soft tissues, without findings to confirm accompanying well-formed abnormal focal fluid collection. Please see full dictation for
additional detail.
Care Review
Plan reviewed with: Physician (General Surgery)
[2023-09-28] MEDS: THERAGRAN 1 TABLET PO (09:05)
[2023-09-28] MEDS: EFFEXOR XR 150 MG PO (09:05)
[2023-09-28] MEDS: VITAMIN D3 (cholecalciferol) 50 MCG PO (09:05)
[2023-09-28] MEDS: METAMUCIL, KONSYL 1 PACKET PO (09:05)
[2023-09-28] MEDS: NOVOLOG FLEXPEN-LOW RESISTANCE SC ×3 (09:05→17:14)
[2023-09-28] MEDS: LIPITOR 10 MG PO (09:06)
[2023-09-28] MEDS: ZYRTEC PO (09:07)
[2023-09-28 09:08] LABS: Glucose - Point of Care 122 mg/dl (70-99)
--- NOTE | 2023-09-28 10:19 | PHA.VAN.FU ---
Vancomycin Assessment / Plan
- Assessment
Renal Function: SCR Decreasing (unknown baseline; functional paraplegia)
WBC's are: Trending Down
In the past 24 hrs, patient has been: Afebrile
Concomitant Antimicrobials: piperacillin/tazo
- Assessment - Therapeutic Drug Monitoring
Random Level: 11.2
- Dosing Plan
Continue: dosing by randoms for now
Dosing by Level: Re-dose today (1500 mg x 1 dose today)
- Monitoring Plan
Random Level: repeat random level in AM
- Follow Up
Pharmacy will continue to follow.
Vancomycin Follow UP
- -
Patient Age: 83
Patient Sex: Male
Vancomycin Day #: 3
Indication: Skin And Soft Tissue
Requesting Provider: Dr. Young
Pertinent Antimicrobial Allergies:
NKA
Height / Weight:
Height 6 ft 2 in
Actual Weight 114.8 kg
Pertinent Past Medical History: BMI ~33, functional paraplegia, [place] resident
- Vital Signs / Lab Results
Temp Pulse Resp BP Pulse Ox
98.6 F 82 22 137/81 98
09/28/23 08:37 09/28/23 08:00 09/28/23 08:00 09/28/23 08:00 09/28/23 08:00
Lab Results - Hematology
09/26/23 09/27/23 09/28/23
11:46 04:17 05:20
WBC 14.4 H 9.5 7.2
Lab Results - Chemistry
09/26/23 09/27/23 09/28/23
11:46 04:17 05:01
BUN 31 H 24 H 21 H
Creatinine 1.4 H 1.0 0.9
Estimated Creat Clear 56 78 87
Albumin 3.9
09/26/23 09/26/23
11:46 15:19
Lactic Acid 2.5 H 1.5
Microbiology Results
09/27/23 09:46 Blood Culture - Preliminary
Blood/Venous No Growth in 24 hours- Final report to follow
09/26/23 19:41 MRSA Screen - Final
Nose Staph aureus MRSA
09/26/23 15:19 Wound Culture - Preliminary
Decubitis Ulcer Gram Stain - Preliminary
09/26/23 11:46 Blood Culture - Preliminary
Blood/Venous Staph aureus MRSA
Gram Stain - Final
09/26/23 15:19 Blood Culture - Preliminary
Blood/Venous Positive culture in progress
Gram Stain - Preliminary
Therapeutic Drug Monitoring
Random Vancomycin 11.2 ug/ml 09/28/23 05:01
--- NOTE | 2023-09-28 10:51 | W.PN.HOSP.TC ---
Today's Communication/Plan
-
see bold
Assessment / Plan
Assessment / Plan
Gen: NAD, AAOx3, appears chronically ill.
Eyes: EOMI, PERRLA, no scleral icterus.
Neck: supple.
CV: remains RRR, +S1/S2, no m/r/g.
Resp: CTAB anteriorly, no rales, wheezes, or rhonchi.
Abd: remains +BS, soft, NT, ND
Neuro: CN 2-12 intact, non-focal.
Psych: Normal mood and affect.
09/27/23 09:46 Blood/Venous Blood Culture - Preliminary
No Growth in 24 hours- Final report to follow
09/26/23 19:41 Nose MRSA Screen - Final
Staph aureus MRSA
09/26/23 15:19 Decubitis Ulcer Wound Culture - Preliminary
09/26/23 15:19 Decubitis Ulcer Gram Stain - Preliminary
09/26/23 11:46 Blood/Venous Blood Culture - Preliminary
Staph aureus MRSA
09/26/23 11:46 Blood/Venous Gram Stain - Final
09/26/23 15:19 Blood/Venous Blood Culture - Preliminary
Positive culture in progress
09/26/23 15:19 Blood/Venous Gram Stain - Preliminary
CT pelvis: Marked edematous/inflammatory changes of the superficial right gluteal soft tissues without findings to confirm accompanying well-formed abnormal focal fluid collection.
Severe sepsis due to R buttock cellulitis:
-initial BCxs with MRSA
-IV Vanco/Zosyn as per ID
-30cc/kg NS bolus given on admission, cont maintenance IVFs (but change to NaHCO3 with non-AG met acidosis)
-culture data above, cont to follow
-leukocytosis and lactic acidosis have resolved
-surgery following, no I&D needed yet
Other problems:
Obesity due to excess calories: Encourage wt loss, affects all aspects of care
Chronic anemia: Trend Hb (acute drop likely dilutional at this point)
JUAN due to sepsis/dehydration: Improving with IVFs.
h/o DVT: cont Eliquis
HLD: cont statin
Essential hypertension: Holding antihypertensives
DM2: a1c 5.8%, cont SSI/accuchecks
Depression: cont Effexor
Functional paraplegia
FULL/Eliquis
Anticipated Discharge: > 48 hours
Subjective/Interval History
-
Date of Service: September 28, 2023
No new complaints.
Objective Data
-
Labs:
Laboratory Results
09/28/23 09/28/23
05:01 05:20
WBC 7.2
Hgb 7.8 L
Hct 23.0 L
Plt Count 380
Sodium 138
Potassium 3.8
Chloride 111 H
Carbon Dioxide 17 L
BUN 21 H
Creatinine 0.9
Glucose 112 H
Calcium 8.2 L
Vital Signs:
Vital Signs
Temp Pulse Resp BP Pulse Ox
98.6 F 82 22 137/81 98
09/28/23 08:37 09/28/23 08:00 09/28/23 08:00 09/28/23 08:00 09/28/23 08:00
I&O
09/27/23 09/28/23 09/29/23
06:59 06:59 06:59
Intake Total 1060 / 1060 2840 / 2840
Output Total 2400 / 2400 2200 / 2200
Balance -1340 / -1340 640 / 640
[2023-09-28] MEDS: SODIUM BICARBONATE 1150 MEQ IV (12:00)
[2023-09-28] MEDS: VANCOCIN 300 ML IV (12:01)
[2023-09-28] MEDS: VANCOCIN 300 MG IV (12:01)
[2023-09-28 12:47] LABS: Glucose - Point of Care 139 mg/dl (70-99)
[2023-09-28] MEDS: TYLENOL 650 MG PO (15:51)
--- NOTE | 2023-09-28 16:20 | W.PN.UPDATE ---
Update Note
Progress Note Update
Called by nurse to prescribe patient's Ambien 10 mg at bedtime that he takes routinely
Was on hold
Did get 5 mg last evening but is asking for his full 10
I did order that medication however, this dose is too high for his age group
He can discuss with the physician tomorrow regarding appropriate dosing
--- NOTE | 2023-09-28 16:24 | CM ---
Alert awake oriented patient who lives at [facility] . Pt has spinal stenosis and is paraplegic.. He has a Renay. He is assisted in all activities of daily living at [facility].He is wheelchair bound.He will need ambulance at or back to [facility].
[facility] history
[facility]
PCP DR Bowens
PLAN Return to [facility]
--- NOTE | 2023-09-28 16:30 | PTCARENOTE ---
Patient has positive cultures for MRSA, notified Dr. Izquierdo. Patient is receiving IV Zosyn and Vanco. Tmax 100.1 this shift, Tylenol given. Dr. Barrientos notieid of fever. Blood cultures completed today. Patient has multiple wounds on buttock dressed
with foam dressing. Wound care is consulted. Patient is eating well. Mild pain on rectal are, patient turned every two hours, wounds off loaded. Browning care provided, raining yello, clear urine. Patient is in good spirits. COmpliant with plan of care.
[2023-09-28 17:11] LABS: Glucose - Point of Care 140 mg/dl (70-99)
[2023-09-28 21:33] LABS: Glucose - Point of Care 172 mg/dl (70-99)
[2023-09-28] MEDS: AMBIEN 10 MG PO (23:27)
[2023-09-28] MEDS: MILK OF MAGNESIA 30 ML PO (23:27)
--- NOTE | 2023-09-29 02:43 | PTCARENOTE ---
Addendum entered by Amanda Moore RN 09/29/23 04:07:
Pt no BM for 3 days, MOM given.
Original Note:
Pt had no complaints over night. Call elizabeth with in reach. Assessment care and vitals as charted.
[2023-09-29] MEDS: SODIUM BICARBONATE 1150 MEQ IV (03:10)
[2023-09-29] MEDS: ZOSYN 50 IV ×2 (03:17→11:03)
[2023-09-29 09:00] VITALS: BP 142/72
[2023-09-29 09:06] LABS: Glucose - Point of Care 135 mg/dl (70-99)
[2023-09-29] MEDS: THERAGRAN 1 TABLET PO (09:11)
[2023-09-29] MEDS: EFFEXOR XR 150 MG PO (09:11)
[2023-09-29] MEDS: LIPITOR 10 MG PO (09:11)
[2023-09-29] MEDS: NOVOLOG FLEXPEN-LOW RESISTANCE SC ×2 (09:11→14:01)
[2023-09-29] MEDS: ZYRTEC 10 MG PO (09:12)
[2023-09-29] MEDS: VITAMIN D3 (cholecalciferol) 50 MCG PO (09:13)
[2023-09-29] MEDS: METAMUCIL, KONSYL 1 PACKET PO (09:13)
--- NOTE | 2023-09-29 09:20 | W.PN.HOSP.TC ---
Today's Communication/Plan
-
Continue Abx
I and D per surgery
Assessment / Plan
Assessment / Plan
Gen: NAD, AAOx3, appears chronically ill.
Eyes: EOMI, PERRLA, no scleral icterus.
Neck: supple.
CV: remains RRR, +S1/S2, no m/r/g.
Resp: CTAB anteriorly, no rales, wheezes, or rhonchi.
Abd: remains +BS, soft, NT, ND
Neuro: CN 2-12 intact, non-focal.
Psych: Normal mood and affect.
09/27/23 09:46 Blood/Venous Blood Culture - Preliminary
No Growth in 24 hours- Final report to follow
09/26/23 19:41 Nose MRSA Screen - Final
Staph aureus MRSA
09/26/23 15:19 Decubitis Ulcer Wound Culture - Preliminary
09/26/23 15:19 Decubitis Ulcer Gram Stain - Preliminary
09/26/23 11:46 Blood/Venous Blood Culture - Preliminary
Staph aureus MRSA
09/26/23 11:46 Blood/Venous Gram Stain - Final
09/26/23 15:19 Blood/Venous Blood Culture - Preliminary
Positive culture in progress
09/26/23 15:19 Blood/Venous Gram Stain - Preliminary
CT pelvis: Marked edematous/inflammatory changes of the superficial right gluteal soft tissues without findings to confirm accompanying well-formed abnormal focal fluid collection.
Severe sepsis due to R buttock cellulitis
Bacteremia with MRSA - suspected right buttock source
-initial BCxs with MRSA
-IV Vanco as per ID
-Zosyn stopped
-Status post IV fluids with bicarb
-culture data above, cont to follow
-leukocytosis and lactic acidosis have resolved
-surgery following, and on 09/29/23 they performed incision and drainage of RIGHT buttock wound
Continue with local wound care (wet-to-dry packing daily covered with dry gauze and ABD or Mepilex
Other problems:
Obesity due to excess calories: Encourage wt loss, affects all aspects of care
Chronic anemia: Trend Hb (acute drop likely dilutional at this point)
JUAN due to sepsis/dehydration: Improving with IVFs.
h/o DVT: HOLD ELIQUIS UNTIL 09/30/23 evening as per surgery
HLD: cont statin
Essential hypertension: Holding antihypertensives
DM2: a1c 5.8%, cont SSI/accuchecks
Depression: cont Effexor
Functional paraplegia
FULL/Eliquis
Anticipated Discharge: > 48 hours
Subjective/Interval History
-
Date of Service: September 29, 2023
Patient was seen and examined. He denied any new significant symptoms or complaints.
Objective Data
-
Labs:
Laboratory Results
09/29/23
06:00
WBC Pending
Hgb Pending
Hct Pending
Plt Count Pending
Sodium Pending
Potassium Pending
Chloride Pending
Carbon Dioxide Pending
BUN Pending
Creatinine Pending
Glucose Pending
Calcium Pending
Vital Signs:
Vital Signs
Temp Pulse Resp BP Pulse Ox
98.6 F 98 16 142/72 97
09/29/23 09:05 09/29/23 09:05 09/29/23 09:05 09/29/23 09:00 09/29/23 09:05
I&O
09/28/23 09/29/23 09/30/23
06:59 06:59 06:59
Intake Total 2840 / 2840 400 / 400
Output Total 2200 / 2200 2850 / 2850
Balance 640 / 640 -2450 / -2450
[2023-09-29 09:50] LABS: Glucose - Point of Care 184 mg/dl (70-99)
--- NOTE | 2023-09-29 10:16 | W.PN.GS2 ---
Today's Communication / Plan
-
-- I&D of RIGHT buttock abscess at bedside
-- Hold Eliquis (will need to hold for 24-48 hours post-procedure
-- Abx: Vancomycin
Assessment / Plan
-
Patient is an 83 yo M p/w fevers, positive blood cultures, and a RIGHT buttock cellulitis/abscess
No significant improvement in 48 hours on antibiotics. Eliquis washout during this time. Recommended plan for incision and drainage of RIGHT buttock skin and soft tissue abscess. The procedure itself, as well as the risks, benefits, and
alternatives was discussed. Specifically, we discussed the risk of bleeding, persistent infection necessitating further drainage procedures, and unlikely injury to surrounding structures. All questions answered. Verbal consent obtained.
-- I&D of RIGHT buttock abscess at bedside
-- Hold Eliquis (will need to hold for 24-48 hours post-procedure
-- Abx: Vancomycin
Subjective Data
-
Date of Service: September 29, 2023
No complaints of changes. Afebrile over 24 hrs.
Objective Data
-
Intake and Output
09/28/23 09/29/23 09/30/23
06:59 06:59 06:59
Intake Total 2840 / 2840 400 / 400
Output Total 2200 / 2200 2850 / 2850
Balance 640 / 640 -2450 / -2450
Intake:
Oral fluids 680 / 680 400 / 400
IV fluids (Total) 1760 / 1760
IV piggybacks 400 / 400
Output:
Urine, Browning 2200 / 2200 2350 / 2350
Urine, Voided 500 / 500
Vital Signs
Temp Pulse Resp BP Pulse Ox
98.6 F 98 16 142/72 97
09/29/23 09:05 09/29/23 09:05 09/29/23 09:05 09/29/23 09:00 09/29/23 09:05
Calcium 8.2 mg/dl (8.4-10.2) L 09/28/23 05:01
Total Bilirubin 1.4 mg/dl (0.2-1.3) H 09/26/23 11:46
AST 20 U/L (17-59) 09/26/23 11:46
ALT 16 U/L (0-50) 09/26/23 11:46
Alkaline Phosphatase 78 U/L (38-126) 09/26/23 11:46
Total Protein 7.5 g/dl (6.3-8.2) 09/26/23 11:46
Albumin 3.9 g/dl (3.5-5.0) 09/26/23 11:46
Physical Exam
-
Gen: NAD
Rectal: RIGHT buttock with 4-5 cm area of erythema, induration, tender to palpation, mild drainage purulent fluid (no significant improvement from evaluation on 09/26)
--- NOTE | 2023-09-29 10:50 | WOUNDNOTE ---
L LATERAL LOWER LEG
--- NOTE | 2023-09-29 10:52 | WOUNDNOTE ---
[facility] RN note: Patient admitted with R buttock abscess.
See H&P for complete history. Meryl Jane
PMH: Obesity, HTN,NIDDM,DVT- On Eliquis, spinal stenosis with cervical & Lumbar Laminectomy, functional paraplegic.
Wound Location and type/assessment: Patient admitted with: R buttock abscess vs unstageable PI. Turned with assist of PCT, small BM in bedpan. R buttock with redness, induration, warm to touch and purulent drainage. Patient seen along with
Hector. Spoke to Dr. Simpson on rounds, plan is for I&D of R buttock at bedside later today, Eliquis on hold. Sacrum is intact, heels intact. Scattered scabs on legs, small skin tear R lateral leg(photo has wrong leg location). Skin on lower legs
and feet very dry. Patient states he gets oob to wheelchair daily, bumps legs into furniture causing abrasions. Using an offloading cushion to wheelchair patient confirms.
Appetite: Good.
Pressure redistribution devices in place: Air mattress, keep on air mattress if transferred to floor. Pillow under calves.
Plan: Dry dressing placed on R buttock, further orders post I&D. Protective foam applied to sacrum. R leg skin tear silicone foam changed. Will order mineral oil for dry skin on legs. Patient repositioned in bed with assist from PCT.
Will confirm orders with hospitalist and updated nurse Lillian. Updated care plan and will follow as needed.
Note to case management of equipment requested for discharge: Air Mattress.
Recommend follow up at wound care center upon discharge.
[2023-09-29] MEDS: FLUSH (NSS) 3 FLUSH IV (11:05)
--- NOTE | 2023-09-29 11:06 | W.PN.ID1 ---
Date of Service
Date of Service: September 29, 2023
Today's Communication
Continue with vancomycin (d#4)
Assessment / Plan
Right buttock pressure wound +/- carbuncle
Bacteremia with MRSA
- suspect right buttock source
Fever
Leukocytosis
Renal insufficiency
Spinal stenosis
Functional paraplegia/wheelchair-bound
Recommendations:
Continue with vancomycin (d#4). Further Zosyn can be discontinued.
Repeat blood cultures pending to assess for ongoing bacteremia.
While patient remains on vancomycin, follow levels closely to prevent renal toxicity.
Check ECHO (TTE)
Follow white count and temperature curve.
����������������������������������������������������������
Chief Complaint
-: Bacteremia and Other (Right buttock wound infection)
Subjective / Review of Systems
Review of Systems: No Fever
Vital Signs / Physical Exam
Vital Signs
Vital Signs
Temp Pulse Resp BP Pulse Ox
98.6 F 98 16 142/72 97
09/29/23 09:05 09/29/23 09:05 09/29/23 09:05 09/29/23 09:00 09/29/23 09:05
Physical Exam
Constitutional: No Acute Distress, Comfortable, Chronically Ill and Non-toxic
Eyes: No Conjunctival Hemorrhage and Sclera Anicteric
Cardiovascular: S1/S2; Negative S3/S4 or Murmur
Pulmonary: Clear and Non Labored
Gastrointestinal: Soft, Non Tender and Non Distended
Skin: Other (Right buttock area with induration and purulent drainage. Positive periwound erythema.)
Neurological: Awake and Alert
Psychological: Calm
Objective Data
Lab Data
Estimated Creat Clear 87 ml/min 09/28/23 05:01
Lactic Acid 1.5 mmol/L (0.7-2.0) 09/26/23 15:19
Total Bilirubin 1.4 mg/dl (0.2-1.3) H 09/26/23 11:46
AST 20 U/L (17-59) 09/26/23 11:46
ALT 16 U/L (0-50) 09/26/23 11:46
Alkaline Phosphatase 78 U/L (38-126) 09/26/23 11:46
Most recent labs reviewed.
Micro Results:
09/29/23 10:56 Blood Culture - Pending
Blood/Venous
09/27/23 10:55 Blood Culture - Preliminary
Blood/Venous No Growth in 48 hours- Final report to follow
09/28/23 10:07 Blood Culture - Preliminary
Blood/Venous No Growth in 24 hours- Final report to follow
09/26/23 15:19 Blood Culture - Final
Blood/Venous Staph aureus MRSA
Gram Stain - Final
09/26/23 11:46 Blood Culture - Final
Blood/Venous Staph aureus MRSA
Gram Stain - Final
09/27/23 09:46 Blood Culture - Preliminary
Blood/Venous Positive culture in progress
Gram Stain - Preliminary
09/26/23 15:19 Wound Culture - Preliminary
Decubitis Ulcer Staph aureus MRSA
Coagulase neg. staphylococcus
Gram Stain - Preliminary
09/28/23 11:17 Blood Culture - Pending
Blood/Venous
09/26/23 19:41 MRSA Screen - Final
Nose Staph aureus MRSA
Imaging:
09/26/2023 CT pelvis with IV contrast: Marked edematous/inflammatory changes of the superficial right gluteal soft tissues, without findings to confirm accompanying well-formed abnormal focal fluid collection. Please see full dictation for
additional detail.
[2023-09-29 11:43] LABS: Vancomycin Random 11.1 ug/ml
[2023-09-29 11:51] LABS: Blood Urea Nitrogen 12 mg/dl (9-20); Calcium 8.3 mg/dl (8.4-10.2); Carbon Dioxide 28 mmol/L (22-30); Chloride 103 mmol/L (98-107); Estimated Creatinine Clearance 111 ml/min; Glucose 134 mg/dl (70-99); Potassium 3.8 mmol/L (3.5-5.1); Sodium 139 mmol/L (135-145); eGFR > 60.00
[2023-09-29 11:52] LABS: Glucose - Point of Care 137 mg/dl (70-99)
--- NOTE | 2023-09-29 12:31 | PHA.VAN.FU ---
Vancomycin Assessment / Plan
- Assessment
Renal Function: SCR Decreasing
In the past 24 hrs, patient has been: Afebrile
- Assessment - Therapeutic Drug Monitoring
Random Level: 11.1 - drawn ~23H after previous dose of 1500mg
- Dosing Plan
Dosing by Level: Re-dose today (Vanc 1500mg)
Level relatively stable despite decreasing SCR
Will re-dose today with same dose of 1500mg and follow level - CrCl may not be predictive of vanc clearance
- Monitoring Plan
Random Level: 09/29 0600
- Follow Up
Pharmacy will continue to follow.
Vancomycin Follow UP
- -
Patient Age: 83
Patient Sex: Male
Vancomycin Day #: 4
Indication: Skin And Soft Tissue
Requesting Provider: Dr. Young
Pertinent Antimicrobial Allergies:
NKDA
Height / Weight:
Height 6 ft 2 in
Actual Weight 114.8 kg
Pertinent Past Medical History: BMI ~33, functional paraplegia, [place] resident
- Vital Signs / Lab Results
Temp Pulse Resp BP Pulse Ox
98.6 F 98 16 142/72 97
09/29/23 09:05 09/29/23 09:05 09/29/23 09:05 09/29/23 09:00 09/29/23 09:05
Lab Results - Hematology
09/27/23 09/28/23
04:17 05:20
WBC 9.5 7.2
Lab Results - Chemistry
09/27/23 09/28/23 09/29/23
04:17 05:01 10:56
BUN 24 H 21 H 12
Creatinine 1.0 0.9 0.7
Estimated Creat Clear 78 87 111
09/26/23
15:19
Lactic Acid 1.5
Microbiology Results
09/28/23 11:17 Blood Culture - Preliminary
Blood/Venous No Growth in 24 hours- Final report to follow
09/27/23 10:55 Blood Culture - Preliminary
Blood/Venous No Growth in 48 hours- Final report to follow
09/28/23 10:07 Blood Culture - Preliminary
Blood/Venous No Growth in 24 hours- Final report to follow
09/26/23 15:19 Blood Culture - Final
Blood/Venous Staph aureus MRSA
Gram Stain - Final
09/26/23 11:46 Blood Culture - Final
Blood/Venous Staph aureus MRSA
Gram Stain - Final
09/27/23 09:46 Blood Culture - Preliminary
Blood/Venous Positive culture in progress
Gram Stain - Preliminary
09/26/23 15:19 Wound Culture - Preliminary
Decubitis Ulcer Staph aureus MRSA
Coagulase neg. staphylococcus
Gram Stain - Preliminary
09/26/23 19:41 MRSA Screen - Final
Nose Staph aureus MRSA
Therapeutic Drug Monitoring
Random Vancomycin 11.1 ug/ml 09/29/23 10:56
[2023-09-29] MEDS: VANCOCIN 300 ML IV (14:01)
[2023-09-29] MEDS: VANCOCIN 300 MG IV (14:01)
[2023-09-29] MEDS: FLUSH (NSS) 1 FLUSH IV (14:02)
[2023-09-29] MEDS: DILAUDID 0.5 MG IV (14:57)
--- NOTE | 2023-09-29 15:13 | W.PN.SURGUPD ---
Surgical Update
Surgical Update
Incision and drainage of RIGHT buttock wound performed at bedside.
Area was exposed. Area was prepped using Betadine. Local anesthetic in the form of 1% lidocaine was used as a field block (20 cc). 2 cm linear incision was made overlying the cavity. Mild amount of purulence and turbid fluid was removed. Wound
culture obtained. External palpation confirmed expression of all fluid. Cavity was bluntly probed and loculations were broken up using a hemostat. Cavity measured approximately 4 x 4 cm. Cavity was irrigated. Cavity was packed with dry gauze
covered with gauze, ABD, and tape. Patient tolerated procedure well.
-- Continue with local wound care (wet-to-dry packing daily covered with dry gauze and ABD or Mepilex).
-- Antibiotics per ID
--- NOTE | 2023-09-29 16:00 | PTCARENOTE ---
Patient had I&D of right buttock wound at bedside. Wound culture sent to lab. Patient able to turn himself in bed , assisted him with repositioning to make sure he was compliant. Patient alert and oriented but can be very forgetful at times. Using
call elizabeth appropriately. Vital signs stable.
[2023-09-29] MEDS: XYLOCAINE 1% WITH EPINEPHRINE 20 ML INFIL (16:46)
[2023-09-29 16:53] VITALS: BP 133/71
[2023-09-29 16:56] VITALS: BP 133/71
[2023-09-29 17:28] LABS: Glucose - Point of Care 153 mg/dl (70-99)
[2023-09-29 17:54] LABS: Hematocrit 22.3 % (39.0-52.0); Hemoglobin 7.5 g/dL (13.0-18.0); Mean Corp Hgb Conc. 33.6 g/dL (33.0-37.0); Mean Corpuscular Hgb 31.4 pg (27.0-31.0); Mean Corpuscular Volume 93.3 fL (80.0-94.0); Mean Platelet Volume 10.2 fL (7.4-10.4); Platelet Count 455 10^3/uL (130-400); Red Blood Cell Count 2.39 10^6/uL (4.70-6.10); White Blood Cell Count 6.1 10^3/uL (4.8-10.8)
[2023-09-29] MEDS: NOVOLOG FLEXPEN-LOW RESISTANCE 1 UNITS SC (18:35)
[2023-09-29 21:51] LABS: Glucose - Point of Care 177 mg/dl (70-99)
[2023-09-29] MEDS: AMBIEN 10 MG PO (23:03)
--- NOTE | 2023-09-29 23:37 | PTCARENOTE ---
Pt forgetful at times to short term communication/time. Pt repeatedly asked this RN to remind him what treatment he is receiving while admitted. Education provided and reinforced about POC. This RN reminded pt the interventions that took place
during the day, such as I&D of wound, which pt remembered. Pt pleasant, conversant. Low grade temps, pt c/o feeling warm but denies other symptoms. Repositioning reinforced. Call elizabeth within reach.
[2023-09-30 05:55] LABS: Hematocrit 23.3 % (39.0-52.0); Hemoglobin 7.8 g/dL (13.0-18.0); Mean Corp Hgb Conc. 33.5 g/dL (33.0-37.0); Mean Corpuscular Hgb 31.2 pg (27.0-31.0); Mean Corpuscular Volume 93.2 fL (80.0-94.0); Mean Platelet Volume 10.3 fL (7.4-10.4); Platelet Count 478 10^3/uL (130-400); White Blood Cell Count 5.3 10^3/uL (4.8-10.8)
[2023-09-30 06:06] VITALS: BP 159/95
[2023-09-30 06:19] LABS: Blood Urea Nitrogen 11 mg/dl (9-20); Calcium 8.7 mg/dl (8.4-10.2); Carbon Dioxide 27 mmol/L (22-30); Chloride 103 mmol/L (98-107); Estimated Creatinine Clearance 98 ml/min; Glucose 104 mg/dl (70-99); Potassium 3.7 mmol/L (3.5-5.1); Sodium 137 mmol/L (135-145); eGFR > 60.00
[2023-09-30 06:21] LABS: Vancomycin Random 12.7 ug/ml
[2023-09-30] MEDS: VITAMIN D3 (cholecalciferol) 50 MCG PO (08:21)
[2023-09-30] MEDS: EFFEXOR XR 150 MG PO (08:21)
[2023-09-30] MEDS: LIPITOR 10 MG PO (08:21)
[2023-09-30] MEDS: ZYRTEC 10 MG PO (08:21)
[2023-09-30] MEDS: METAMUCIL, KONSYL 1 PACKET PO (08:21)
[2023-09-30] MEDS: THERAGRAN 1 TABLET PO (08:21)
[2023-09-30] MEDS: HYDROPHOR 1 APPLIC TOPICAL (08:22)
[2023-09-30 08:37] VITALS: BP 129/79
[2023-09-30] MEDS: NOVOLOG FLEXPEN-LOW RESISTANCE SC ×2 (08:41→13:36)
[2023-09-30 08:44] LABS: Glucose - Point of Care 120 mg/dl (70-99)
--- NOTE | 2023-09-30 09:43 | PHA.VAN.FU ---
Addendum entered and electronically signed by Gregoria Padilla RPH 09/30/23 13:14:
Based on administration time of today's dose, vancomycin peak ordered for 1400.
Trough ordered for tomorrow AM to calculate patient's half-life and evaluate potential for Vanc 1500mg Q24H.
Levels drawn after 4th dose of 1500mg (administered once daily based on random levels).
Original Note:
Vancomycin Assessment / Plan
- Assessment
Renal Function: Stable
WBC's are: WNL
In the past 24 hrs, patient has been: Afebrile
- Assessment - Therapeutic Drug Monitoring
Random Level: 12.7 - drawn ~15.5H after previous dose of 1500mg
- Dosing Plan
Dosing by Level: Re-dose today (Vanc 1500mg)
- Monitoring Plan
No level(s) ordered at this time: will consider peak/trough after today's dose to determine scheduled regimen
- Follow Up
Pharmacy will continue to follow.
Vancomycin Follow UP
- -
Patient Age: 83
Patient Sex: Male
Vancomycin Day #: 5
Indication: Skin And Soft Tissue
Requesting Provider: Dr. Young
Pertinent Antimicrobial Allergies:
NKDA
Height / Weight:
Height 6 ft 2 in
Actual Weight 114.8 kg
Pertinent Past Medical History: BMI ~33, functional paraplegia, [place] resident
- Vital Signs / Lab Results
Temp Pulse Resp BP Pulse Ox
98.3 F 92 20 129/79 97
09/30/23 08:40 09/30/23 08:40 09/30/23 08:40 09/30/23 08:37 09/30/23 08:40
Lab Results - Hematology
09/28/23 09/29/23 09/29/23
05:20 06:00 17:47
WBC 7.2 Cancelled 6.1
09/30/23
05:43
WBC 5.3
Lab Results - Chemistry
09/28/23 09/29/23 09/30/23
05:01 10:56 05:43
BUN 21 H 12 11
Creatinine 0.9 0.7 0.8
Estimated Creat Clear 87 111 98
Microbiology Results
09/26/23 15:19 Wound Culture - Final
Decubitis Ulcer Staph aureus MRSA
Staphylococcus capitis
Gram Stain - Final
09/29/23 17:07 Gram Stain - Preliminary
Buttock
09/28/23 11:17 Blood Culture - Preliminary
Blood/Venous No Growth in 24 hours- Final report to follow
09/27/23 10:55 Blood Culture - Preliminary
Blood/Venous No Growth in 48 hours- Final report to follow
09/28/23 10:07 Blood Culture - Preliminary
Blood/Venous No Growth in 24 hours- Final report to follow
09/26/23 15:19 Blood Culture - Final
Blood/Venous Staph aureus MRSA
Gram Stain - Final
09/26/23 11:46 Blood Culture - Final
Blood/Venous Staph aureus MRSA
Gram Stain - Final
09/27/23 09:46 Blood Culture - Preliminary
Blood/Venous Positive culture in progress
Gram Stain - Preliminary
09/26/23 19:41 MRSA Screen - Final
Nose Staph aureus MRSA
Therapeutic Drug Monitoring
Random Vancomycin 12.7 ug/ml 09/30/23 05:43
[2023-09-30] MEDS: VANCOCIN 300 ML IV (10:47)
[2023-09-30] MEDS: VANCOCIN 300 MG IV (10:47)
[2023-09-30 12:47] LABS: Glucose - Point of Care 145 mg/dl (70-99)
--- NOTE | 2023-09-30 13:35 | W.PN.GS2 ---
Today's Communication / Plan
-
-- Local wound care: WTD dressing changes daily, cover with dry gauze/ABD and tape
-- Abx: Vancomycin, ID on board
-- Please call with questions or concerns
Assessment / Plan
-
Patient is an 83 yo M p/w fevers, positive blood cultures, and a RIGHT buttock cellulitis/abscess
Recovering well. No need for further surgical intervention.
-- Local wound care: WTD dressing changes daily, cover with dry gauze/ABD and tape
-- Abx: Vancomycin, ID on board
-- Please call with questions or concerns
Subjective Data
-
Date of Service: September 30, 2023
No complaints. Pain well-controlled. No fevers.
Objective Data
-
Intake and Output
09/29/23 09/30/23 10/01/23
06:59 06:59 06:59
Intake Total 400 / 400 1535 / 1535
Output Total 2850 / 2850 2825 / 2825
Balance -2450 / -2450 -1290 / -1290
Intake:
Oral fluids 400 / 400 325 / 325
IV fluids (Total) 960 / 960
IV piggybacks 250 / 250
Output:
Urine, [place] 2350 / 2350 2825 / 2825
Urine, Voided 500 / 500
Vital Signs
Temp Pulse Resp BP Pulse Ox
98.3 F 92 20 129/79 97
09/30/23 08:40 09/30/23 08:40 09/30/23 08:40 09/30/23 08:37 09/30/23 08:40
Lab Results
09/30/23 05:43
09/30/23 05:43
Calcium 8.7 mg/dl (8.4-10.2) 09/30/23 05:43
Total Bilirubin 1.4 mg/dl (0.2-1.3) H 09/26/23 11:46
AST 20 U/L (17-59) 09/26/23 11:46
ALT 16 U/L (0-50) 09/26/23 11:46
Alkaline Phosphatase 78 U/L (38-126) 09/26/23 11:46
Total Protein 7.5 g/dl (6.3-8.2) 09/26/23 11:46
Albumin 3.9 g/dl (3.5-5.0) 09/26/23 11:46
Physical Exam
-
Gen: NAD
Rectal: dressing c/d/i, no bleeding, mild purulence, minimal surrounding erythema, moderate induration
--- NOTE | 2023-09-30 13:37 | PTCARENOTE ---
Report to Beth transfer to [facility] via stretcher.
--- NOTE | 2023-09-30 14:02 | W.PN.ID1 ---
Date of Service
Date of Service: September 30, 2023
Today's Communication
Continue with vancomycin (d#5).
Assessment / Plan
Right buttock pressure wound +/- carbuncle
Bacteremia with MRSA
- suspect right buttock source
Fever
Leukocytosis
Renal insufficiency
Spinal stenosis
Functional paraplegia/wheelchair-bound
Recommendations:
Continue with vancomycin (d#5).
Repeat blood cultures pending to assess for ongoing bacteremia.
While patient remains on vancomycin, follow levels closely to prevent renal toxicity.
Await ECHO (TTE)
Local care to wound.
Follow white count and temperature curve.
����������������������������������������������������������
Chief Complaint
-: Bacteremia and Other (Right buttock wound infection)
Subjective / Review of Systems
Patient seen and examined. Reports overall feeling fair. Patient had I&D of right buttock yesterday, with finding of a 4 cm pus filled cavity.
Review of Systems: No Fever
Vital Signs / Physical Exam
Vital Signs
Vital Signs
Temp Pulse Resp BP Pulse Ox
98.3 F 92 20 129/79 97
09/30/23 08:40 09/30/23 08:40 09/30/23 08:40 09/30/23 08:37 09/30/23 08:40
Physical Exam
Constitutional: No Acute Distress, Comfortable and Non-toxic
Eyes: No Conjunctival Hemorrhage and Sclera Anicteric
Cardiovascular: S1/S2 and S3/S4; Negative Murmur
Pulmonary: Non Labored
Gastrointestinal: Soft and Non Tender
Skin: Warm and Dry; Negative Rash or Jaundice
Wound: Other (Right buttock wound dressed.)
Neurological: Awake and Alert
Psychological: Calm
Objective Data
Lab Data
Lab Results
09/30/23 05:43
09/30/23 05:43
Estimated Creat Clear 98 ml/min 09/30/23 05:43
Lactic Acid 1.5 mmol/L (0.7-2.0) 09/26/23 15:19
Total Bilirubin 1.4 mg/dl (0.2-1.3) H 09/26/23 11:46
AST 20 U/L (17-59) 09/26/23 11:46
ALT 16 U/L (0-50) 09/26/23 11:46
Alkaline Phosphatase 78 U/L (38-126) 09/26/23 11:46
Most recent labs reviewed.
Micro Results:
09/29/23 17:07 Wound Culture - Preliminary
Buttock Staph aureus MRSA
Gram Stain - Preliminary
09/28/23 11:17 Blood Culture - Preliminary
Blood/Venous No Growth in 48 hours- Final report to follow
09/29/23 10:56 Blood Culture - Preliminary
Blood/Venous No Growth in 24 hours- Final report to follow
09/27/23 10:55 Blood Culture - Preliminary
Blood/Venous No Growth in 72 hours- Final report to follow
09/28/23 10:07 Blood Culture - Preliminary
Blood/Venous No Growth in 48 hours- Final report to follow
09/27/23 09:46 Blood Culture - Preliminary
Blood/Venous Staph aureus MRSA
Gram Stain - Preliminary
09/26/23 15:19 Wound Culture - Final
Decubitis Ulcer Staph aureus MRSA
Staphylococcus capitis
Gram Stain - Final
09/29/23 17:43 Blood Culture - Pending
Blood/Venous
09/26/23 15:19 Blood Culture - Final
Blood/Venous Staph aureus MRSA
Gram Stain - Final
09/26/23 11:46 Blood Culture - Final
Blood/Venous Staph aureus MRSA
Gram Stain - Final
09/26/23 19:41 MRSA Screen - Final
Nose Staph aureus MRSA
Imaging:
09/26/2023 CT pelvis with IV contrast: Marked edematous/inflammatory changes of the superficial right gluteal soft tissues, without findings to confirm accompanying well-formed abnormal focal fluid collection. Please see full dictation for
additional detail.
--- NOTE | 2023-09-30 14:11 | TRANSFER ---
Pt transferred from IMU to [facility]. Pt pulled over from stretcher to bed. Assessment completed by this RN, vitals taken, oriented to room. Call elizabeth within reach.
[2023-09-30 15:15] LABS: Vancomycin Peak 22.4 ug/ml (18-26)
[2023-09-30 16:15] VITALS: BP 135/78
--- NOTE | 2023-09-30 16:43 | W.PN.HOSP.TC ---
Today's Communication/Plan
-
Continue antibiotics
Resume Eliquis
Gradually resume antihypertensives
Assessment / Plan
Assessment / Plan
Gen: NAD, AAOx3, appears chronically ill.
Eyes: EOMI, PERRLA, no scleral icterus.
Neck: supple.
CV: remains RRR, +S1/S2, no m/r/g.
Resp: CTAB anteriorly, no rales, wheezes, or rhonchi.
Abd: remains +BS, soft, NT, ND
Neuro: CN 2-12 intact, non-focal.
Psych: Normal mood and affect.
09/27/23 09:46 Blood/Venous Blood Culture - Preliminary
No Growth in 24 hours- Final report to follow
09/26/23 19:41 Nose MRSA Screen - Final
Staph aureus MRSA
09/26/23 15:19 Decubitis Ulcer Wound Culture - Preliminary
09/26/23 15:19 Decubitis Ulcer Gram Stain - Preliminary
09/26/23 11:46 Blood/Venous Blood Culture - Preliminary
Staph aureus MRSA
09/26/23 11:46 Blood/Venous Gram Stain - Final
09/26/23 15:19 Blood/Venous Blood Culture - Preliminary
Positive culture in progress
09/26/23 15:19 Blood/Venous Gram Stain - Preliminary
CT pelvis: Marked edematous/inflammatory changes of the superficial right gluteal soft tissues without findings to confirm accompanying well-formed abnormal focal fluid collection.
Severe sepsis due to R buttock cellulitis
Bacteremia with MRSA - suspected right buttock source
-initial BCxs with MRSA
-IV Vanco as per ID, recommendations appreciated
-Zosyn stopped
-Echocardiogram
-Status post IV fluids with bicarb
-culture data above, cont to follow
-leukocytosis and lactic acidosis have resolved
-surgery following, and on 09/29/23 they performed incision and drainage of RIGHT buttock wound
Continue with local wound care: WTD dressing changes daily, cover with dry gauze/ABD and tape
Other problems:
Obesity due to excess calories: Encourage wt loss, affects all aspects of care
Chronic anemia: Trend Hb (acute drop likely dilutional at this point)
JUAN due to sepsis/dehydration: Improving with IVFs.
h/o DVT: Resume Eliquis (it was previously held due to surgery procedure).
HLD: cont statin
Essential hypertension: Gradually resume antihypertensives.
DM2: a1c 5.8%, cont SSI/accuchecks
Depression: cont Effexor
Functional paraplegia
FULL/Eliquis
Anticipated Discharge: 24 - 48 hours
Subjective/Interval History
-
Date of Service: September 30, 2023
Patient was seen and examined. He denied any new significant symptoms or complaints.
Objective Data
-
Labs:
Laboratory Results
09/30/23
05:43
WBC 5.3
Hgb 7.8 L
Hct 23.3 L
Plt Count 478 H
Sodium 137
Potassium 3.7
Chloride 103
Carbon Dioxide 27
BUN 11
Creatinine 0.8
Glucose 104 H
Calcium 8.7
Vital Signs:
Vital Signs
Temp Pulse Resp BP Pulse Ox
98.8 F 97 18 135/78 95
09/30/23 16:15 09/30/23 16:15 09/30/23 16:15 09/30/23 16:15 09/30/23 16:15
I&O
09/29/23 09/30/23 10/01/23
06:59 06:59 06:59
Intake Total 400 / 400 1535 / 1535 1020 / 1020
Output Total 2850 / 2850 2825 / 2825 1275 / 1275
Balance -2450 / -2450 -1290 / -1290 -255 / -255
[2023-09-30 17:10] LABS: Glucose - Point of Care 176 mg/dl (70-99)
[2023-09-30] MEDS: NOVOLOG FLEXPEN-LOW RESISTANCE 1 UNITS SC (18:15)
[2023-09-30 21:59] LABS: Glucose - Point of Care 180 mg/dl (70-99)
[2023-09-30] MEDS: ELIQUIS 5 MG PO (22:04)
[2023-09-30] MEDS: LOPRESSOR 50 MG PO (22:05)
[2023-09-30] MEDS: AMBIEN 10 MG PO (22:05)
[2023-09-30 23:02] VITALS: BP 148/83
[2023-10-01 06:39] LABS: Hematocrit 24.1 % (39.0-52.0); Hemoglobin 7.8 g/dL (13.0-18.0); Mean Corp Hgb Conc. 32.4 g/dL (33.0-37.0); Mean Corpuscular Hgb 30.7 pg (27.0-31.0); Mean Corpuscular Volume 94.9 fL (80.0-94.0); Mean Platelet Volume 10.2 fL (7.4-10.4); Platelet Count 569 10^3/uL (130-400); Red Blood Cell Count 2.54 10^6/uL (4.70-6.10); White Blood Cell Count 5.4 10^3/uL (4.8-10.8)
[2023-10-01 06:53] LABS: Vancomycin Trough 12.5 ug/ml (5-20)
[2023-10-01 06:58] LABS: Blood Urea Nitrogen 12 mg/dl (9-20); Calcium 8.8 mg/dl (8.4-10.2); Carbon Dioxide 28 mmol/L (22-30); Chloride 105 mmol/L (98-107); Estimated Creatinine Clearance 98 ml/min; Glucose 113 mg/dl (70-99); Sodium 139 mmol/L (135-145); eGFR > 60.00
[2023-10-01 07:00] VITALS: BP 147/90
[2023-10-01 07:54] LABS: Glucose - Point of Care 120 mg/dl (70-99)
--- NOTE | 2023-10-01 09:17 | PHA.VAN.FU ---
Vancomycin Assessment / Plan
- Assessment
Renal Function: Stable
WBC's are: WNL
In the past 24 hrs, patient has been: Afebrile
- Assessment - Therapeutic Drug Monitoring
Extrapolated Cmax (mcg/mL): 24.6
Peak level was drawn: Appropriately (drawn ~2.5H after end of previous infusion)
Extrapolated Cmin (mcg/mL): 10.5
Trough Drawn: Appropriately
Levels were drawn: At steady state (levels drawn after 4th daily dose of 1500mg - administered once daily based on random levels)
Calculated AUC (mcg*h/mL): 399
Calculated ke: 0.0376
Calculated half life (H): 18.4
Calculated Vd (L): 99.8 (~0.87 L/kg)
Calculated Vanc CL (ml/min): 63
Patient's estimated CrCl is not predictive of vanc clearance and patient does not follow population PK
- Dosing Plan
Adjust Regimen to: Vanc 1750mg Q24H - first dose now then 10/01 0600
New Regimen Predicts: AUC (484), Peak (29.5), Trough (12.9)
Calculations may slightly underpredict AUC and patient's true AUC may be > 400
Will increase dose given persistent bacteremia to ensure patient achieves therapeutic AUC value
- Monitoring Plan
No level(s) ordered at this time: consider repeat levels in next few days
- Follow Up
Pharmacy will continue to follow.
Vancomycin Follow UP
- -
Patient Age: 83
Patient Sex: Male
Vancomycin Day #: 6
Indication: Skin And Soft Tissue
Requesting Provider: Dr. Young
Pertinent Antimicrobial Allergies:
NKDA
Height / Weight:
Height 6 ft 2 in
Actual Weight 114.8 kg
Pertinent Past Medical History: BMI ~33, functional paraplegia, [place] resident
- Vital Signs / Lab Results
Temp Pulse Resp BP Pulse Ox
98.1 F 74 20 147/90 97
10/01/23 07:00 10/01/23 07:00 10/01/23 07:00 10/01/23 07:00 10/01/23 07:00
Lab Results - Hematology
09/29/23 09/29/23 09/30/23
06:00 17:47 05:43
WBC Cancelled 6.1 5.3
10/01/23
06:15
WBC 5.4
Lab Results - Chemistry
09/29/23 09/30/23 10/01/23
10:56 05:43 06:15
BUN 12 11 12
Creatinine 0.7 0.8 0.8
Estimated Creat Clear 111 98 98
Microbiology Results
09/29/23 10:56 Blood Culture - Preliminary
Blood/Venous Positive culture in progress
Gram Stain - Preliminary
09/29/23 17:43 Blood Culture - Preliminary
Blood/Venous No Growth in 24 hours- Final report to follow
09/29/23 17:07 Wound Culture - Preliminary
Buttock Staph aureus MRSA
Gram Stain - Preliminary
09/28/23 11:17 Blood Culture - Preliminary
Blood/Venous No Growth in 48 hours- Final report to follow
09/27/23 10:55 Blood Culture - Preliminary
Blood/Venous No Growth in 72 hours- Final report to follow
09/28/23 10:07 Blood Culture - Preliminary
Blood/Venous No Growth in 48 hours- Final report to follow
09/27/23 09:46 Blood Culture - Preliminary
Blood/Venous Staph aureus MRSA
Gram Stain - Preliminary
09/26/23 15:19 Wound Culture - Final
Decubitis Ulcer Staph aureus MRSA
Staphylococcus capitis
Gram Stain - Final
09/26/23 15:19 Blood Culture - Final
Blood/Venous Staph aureus MRSA
Gram Stain - Final
09/26/23 11:46 Blood Culture - Final
Blood/Venous Staph aureus MRSA
Gram Stain - Final
Therapeutic Drug Monitoring
Vancomycin Peak 22.4 ug/ml (18-26) 09/30/23 14:45
Vancomycin Trough 12.5 ug/ml (5-20) 10/01/23 06:15
Random Vancomycin 12.7 ug/ml 09/30/23 05:43
--- NOTE | 2023-10-01 10:06 | WOUNDNOTE ---
[facility] RN NOTE: Followed up on R buttock post I&D done on 09/28. Reviewed surgical note, updated wound care orders and discharge instructions. Dressing changed, saline moistened Shana packed into base of wound, followed by gauze, folded ABD pad and
silicone tape. Base of wound clean, serosanguineous drainage, no odor or pain. No more induration surrounding opened area, partial thickness wound surrounding. Patient's appetite is good, encouraged protein in diet, having omelet for breakfast.
Patient is on an Accumax bed, sacrum and heels are intact. Asked nurse Mikel to add an air overlay to bed if patient not being discharged, confirmed he will. Patient able to turn self and assists with repositioning, a functional paraplegic. Air
cushion and pillow under calves to offload heels. R leg skin tear nearly healed, changed silicone foam. Remainder of scabs on legs intact, skin less dry. Will follow as needed otherwise will sign off.
[2023-10-01] MEDS: NOVOLOG FLEXPEN-LOW RESISTANCE SC (10:10)
[2023-10-01] MEDS: ELIQUIS 5 MG PO ×2 (10:12→21:31)
[2023-10-01] MEDS: ZYRTEC 10 MG PO (10:12)
[2023-10-01] MEDS: VITAMIN D3 (cholecalciferol) 50 MCG PO (10:12)
[2023-10-01] MEDS: EFFEXOR XR 150 MG PO (10:12)
[2023-10-01] MEDS: THERAGRAN 1 TABLET PO (10:13)
[2023-10-01] MEDS: COZAAR 50 MG PO (10:13)
[2023-10-01] MEDS: METAMUCIL, KONSYL 1 PACKET PO (10:13)
[2023-10-01] MEDS: LIPITOR 10 MG PO (10:13)
[2023-10-01] MEDS: LOPRESSOR 50 MG PO ×2 (10:13→21:31)
[2023-10-01] MEDS: HYDROPHOR 1 APPLIC TOPICAL (10:15)
--- NOTE | 2023-10-01 11:18 | W.PN.ID1 ---
Addendum entered and electronically signed by Guy Young, 10/01/23 12:52:
Vanco CAROLYNE for recovered MRSA isolate =2 which may impact bacterial clearance. Will transition to daptomycin.
Original Note:
Date of Service
Date of Service: October 01, 2023
Today's Communication
Continue with vancomycin (d#6)
Assessment / Plan
Right buttock abscess / carbuncle
- s/p I&D
MRSA bacteremia
Fever
Leukocytosis
Renal insufficiency
Spinal stenosis
Functional paraplegia/wheelchair-bound
Recommendations:
Continue with vancomycin (d#6)
Follow repeat blood cultures to assess for ongoing bacteremia.
While patient remains on vancomycin, follow levels closely to prevent renal toxicity.
ECHO (TTE) cannot rule out AV vegetation. Would recommend a MOSES.
Local care to buttock wound.
Follow white count and temperature curve.
����������������������������������������������������������
Chief Complaint
-: Bacteremia and Other (Right buttock wound infection)
Subjective / Review of Systems
Review of Systems: No Fever and No Chills
Vital Signs / Physical Exam
Vital Signs
Vital Signs
Temp Pulse Resp BP Pulse Ox
98.1 F 74 20 147/90 97
10/01/23 07:00 10/01/23 07:00 10/01/23 07:00 10/01/23 07:00 10/01/23 07:00
Physical Exam
Constitutional: No Acute Distress, Comfortable and Non-toxic
Eyes: No Conjunctival Hemorrhage and Sclera Anicteric
Cardiovascular: S1/S2 and S3/S4; Negative Murmur
Pulmonary: Non Labored
Gastrointestinal: Soft and Non Tender
Skin: Warm and Dry; Negative Rash or Jaundice
Wound: Other (Right buttock wound dressed.)
Neurological: Awake and Alert
Psychological: Calm
Objective Data
Lab Data
Lab Results
10/01/23 06:15
10/01/23 06:15
Estimated Creat Clear 98 ml/min 10/01/23 06:15
Lactic Acid 1.5 mmol/L (0.7-2.0) 09/26/23 15:19
Total Bilirubin 1.4 mg/dl (0.2-1.3) H 09/26/23 11:46
AST 20 U/L (17-59) 09/26/23 11:46
ALT 16 U/L (0-50) 09/26/23 11:46
Alkaline Phosphatase 78 U/L (38-126) 09/26/23 11:46
Most recent labs reviewed.
Micro Results:
09/27/23 10:55 Blood Culture - Preliminary
Blood/Venous No Growth in 4 days- Final report to follow
09/28/23 10:07 Blood Culture - Preliminary
Blood/Venous No Growth in 72 hours- Final report to follow
09/29/23 10:56 Blood Culture - Preliminary
Blood/Venous Positive culture in progress
Gram Stain - Preliminary
09/29/23 17:43 Blood Culture - Preliminary
Blood/Venous No Growth in 24 hours- Final report to follow
09/29/23 17:07 Wound Culture - Preliminary
Buttock Staph aureus MRSA
Gram Stain - Preliminary
09/28/23 11:17 Blood Culture - Preliminary
Blood/Venous No Growth in 48 hours- Final report to follow
09/27/23 09:46 Blood Culture - Preliminary
Blood/Venous Staph aureus MRSA
Gram Stain - Preliminary
09/26/23 15:19 Wound Culture - Final
Decubitis Ulcer Staph aureus MRSA
Staphylococcus capitis
Gram Stain - Final
09/26/23 15:19 Blood Culture - Final
Blood/Venous Staph aureus MRSA
Gram Stain - Final
09/26/23 11:46 Blood Culture - Final
Blood/Venous Staph aureus MRSA
Gram Stain - Final
09/26/23 19:41 MRSA Screen - Final
Nose Staph aureus MRSA
Imaging:
09/26/2023 CT pelvis with IV contrast: Marked edematous/inflammatory changes of the superficial right gluteal soft tissues, without findings to confirm accompanying well-formed abnormal focal fluid collection. Please see full dictation for
additional detail.
[2023-10-01] MEDS: VANCOCIN 535 MG IV (11:25)
--- NOTE | 2023-10-01 11:36 | CM ---
Case management following for d/c planning
Chart reviewed
From [facility]
Pt has spinal stenosis and is paraplegic - wheelchair bound
Needs assistance with all ADL's
PT/OT recommending SNF
He will need ambulance at dc back to [facility].
Updates sent to [facility]
Plan - return to [facility] when medically stable
[2023-10-01 12:44] LABS: Glucose - Point of Care 169 mg/dl (70-99)
[2023-10-01] MEDS: MILK OF MAGNESIA 30 ML PO (13:57)
[2023-10-01] MEDS: NOVOLOG FLEXPEN-LOW RESISTANCE 1 UNITS SC ×2 (14:00→18:42)
[2023-10-01 15:00] VITALS: BP 131/72
--- NOTE | 2023-10-01 15:11 | W.PN.HOSP.TC ---
Today's Communication/Plan
-
MOSES, cardiology consult, given MRSA bacteremia
Daptomycin
Appreciate cardiology and infectious disease
Assessment / Plan
Assessment / Plan
Gen: NAD, AAOx3, appears chronically ill.
Eyes: EOMI, PERRLA, no scleral icterus.
Neck: supple.
CV: remains RRR, +S1/S2, no m/r/g.
Resp: CTAB anteriorly, no rales, wheezes, or rhonchi.
Abd: remains +BS, soft, NT, ND
Neuro: CN 2-12 intact, non-focal.
Psych: Normal mood and affect.
09/27/23 09:46 Blood/Venous Blood Culture - Preliminary
No Growth in 24 hours- Final report to follow
09/26/23 19:41 Nose MRSA Screen - Final
Staph aureus MRSA
09/26/23 15:19 Decubitis Ulcer Wound Culture - Preliminary
09/26/23 15:19 Decubitis Ulcer Gram Stain - Preliminary
09/26/23 11:46 Blood/Venous Blood Culture - Preliminary
Staph aureus MRSA
09/26/23 11:46 Blood/Venous Gram Stain - Final
09/26/23 15:19 Blood/Venous Blood Culture - Preliminary
Positive culture in progress
09/26/23 15:19 Blood/Venous Gram Stain - Preliminary
CT pelvis: Marked edematous/inflammatory changes of the superficial right gluteal soft tissues without findings to confirm accompanying well-formed abnormal focal fluid collection.
Severe sepsis due to R buttock cellulitis
Bacteremia with MRSA - suspected right buttock source
-initial BCxs with MRSA
-Completed IV Vanco, now switched to Daptomycin as per ID, recommendations appreciated
-Zosyn stopped
-Echocardiogram could not clearly identify any vegetations
-MOSES and cardiology consult ordered, recommendations appreciated
-Status post IV fluids with bicarb
-culture data above, cont to follow
-leukocytosis and lactic acidosis have resolved
-surgery following, and on 09/29/23 they performed incision and drainage of RIGHT buttock wound
Continue with local wound care: WTD dressing changes daily, cover with dry gauze/ABD and tape
Other problems:
Obesity due to excess calories: Encourage wt loss, affects all aspects of care
Chronic anemia: Trend Hb (acute drop likely dilutional at this point)
JUAN due to sepsis/dehydration: Improving with IVFs.
h/o DVT: Resume Eliquis (it was previously held due to surgery procedure).
HLD: cont statin
Essential hypertension: Gradually resume antihypertensives.
DM2: a1c 5.8%, cont SSI/accuchecks
Depression: cont Effexor
Functional paraplegia
FULL/Eliquis
Anticipated Discharge: > 48 hours
Subjective/Interval History
-
Date of Service: October 01, 2023
Patient was seen and examined. He reported no new symptoms or complaints.
Objective Data
-
Labs:
Laboratory Results
10/01/23
06:15
WBC 5.4
Hgb 7.8 L
Hct 24.1 L
Plt Count 569 H
Sodium 139
Potassium 4.0
Chloride 105
Carbon Dioxide 28
BUN 12
Creatinine 0.8
Glucose 113 H
Calcium 8.8
Vital Signs:
Vital Signs
Temp Pulse Resp BP Pulse Ox
98.1 F 74 20 147/90 97
10/01/23 07:00 10/01/23 07:00 10/01/23 07:00 10/01/23 07:00 10/01/23 07:00
I&O
09/30/23 10/01/23 10/02/23
06:59 06:59 06:59
Intake Total 1535 / 1535 2755 / 2755
Output Total 2825 / 2825 2625 / 2625
Balance -1290 / -1290 130 / 130
--- NOTE | 2023-10-01 15:35 | CON.CAR ---
Consultation
Consultation Request
Date/Time Consultation Requested: 10/01/23 3:15pm
Date/Time Consultation Performed: 10/01/23 3:30pm
Requesting Provider: Dr Turner
Performing Provider: Dr Manning
Reason for Consultation: MOSES
Medical History
-
Chief Complaint: fever
History of Present Illness:
83-year-old male with past medical history of severe spinal stenosis, fatigue presents to outside hospital with fever and decubitus ulcer wound. He was found to grow MRSA in both the wound and on multiple blood cultures. He is not overly active
due to severe spinal stenosis and lives at [place]. He had an incision and drainage of his buttocks lesion but continues to have positive blood cultures for MRSA. He denies any chest pains or shortness of breath. He is essentially bedbound
due to severe spinal stenosis. He denies any orthopnea, PND, or edema. He denies any loose teeth or difficulty swallowing. Were asked to proceed with a transesophageal echo to evaluate his bacteremia. Transthoracic echo was overall unremarkable.
Past Medical History
Past Medical History: HTN, Hypercholesterolemia, NIDDM and Other (DVT, depression, severe spinal stenosis, chronic decubitus ulcer right buttock wound)
Past Surgical History: Other (Right buttock incision and drainage)
Social History
Tobacco: Non-Smoker
Alcohol: None
Drug: None
Living: Half-Way
Employment: Retired
Family History
Family History: Hypertension
Allergies / Home Medications
Allergy/AdvReac Type Severity Reaction Status Date / Time
No Known Allergies Allergy Unverified 09/26/23 11:41
�Medication �Instructions �Recorded �Confirmed �Type
acetaminophen 325 mg tablet 650 mg PO Q6HPRN PRN mild pain 09/26/23 09/26/23 History
(Tylenol)
apixaban 5 mg tablet (Eliquis) 5 mg PO BID Blood Clot 09/26/23 09/26/23 History
Prevention/Tx
atorvastatin 10 mg tablet (Lipitor) 10 mg PO DAILY High Cholesterol 09/26/23 09/26/23 History
bisacodyl 10 mg rectal suppository 10 mg OH DAILYPRN PRN if no bm 09/26/23 09/26/23 History
(Dulcolax (bisacodyl)) aftr mom
cetirizine 10 mg tablet (Zyrtec) 10 mg PO DAILY Allergies 09/26/23 09/26/23 History
cholecalciferol (vitamin D3) 50 50 mcg PO DAILY Supplement 09/26/23 09/26/23 History
mcg (2,000 unit) tablet (Vitamin
D3)
dextromethorphan-guaifenesin 10 10 ml PO Q6HPRN PRN cough 09/26/23 09/26/23 History
mg-100 mg/5 mL oral syrup
hydrochlorothiazide 25 mg tablet 25 mg PO DAILY Blood Pressure 09/26/23 09/26/23 History
loperamide 2 mg tablet 2 mg PO Q6HPRN PRN diarrhea 09/26/23 09/26/23 History
losartan 50 mg tablet 50 mg PO DAILY Blood Pressure 09/26/23 09/26/23 History
magnesium hydroxide 400 mg/5 mL 2,400 mg PO HSPRN PRN if no bm on 09/26/23 09/26/23 History
oral suspension (Milk of Magnesia) 3rd day
metformin 1,000 mg tablet 1,000 mg PO BID Diabetes 09/26/23 09/26/23 History
metoprolol tartrate 50 mg tablet 50 mg PO BID Blood Pressure 09/26/23 09/26/23 History
(Lopressor)
psyllium 1 packet PO DAILY Gastrointestinal 09/26/23 09/26/23 History
Issue
sitagliptin phosphate 100 mg 100 mg PO DAILY Diabetes 09/26/23 09/26/23 History
tablet (Januvia)
therapeutic multivitamin 1 tab PO DAILY Supplement 09/26/23 09/26/23 History
venlafaxine 150 mg 150 mg PO DAILY Mental Health 09/26/23 09/26/23 History
capsule,extended release 24 hr
(Effexor XR)
zolpidem 10 mg tablet 10 mg PO HS Sleep 09/26/23 09/26/23 History
Review of Systems
-
History Source: Patient
Constitutional: Fever and Fatigue
EENT: No Symptoms
Respiratory: No Symptoms
Cardiac: No Symptoms
Abdomen/GI: No Symptoms
: No Symptoms
Musculoskeletal: Muscle Pain and Muscle Stiffness
Skin: No Symptoms
Neurological: Weakness
Endocrine: No Symptoms
Hematologic/Lymphatic: No Symptoms
Physical Exam
Vital Signs
Temp Pulse Resp BP Pulse Ox
98.1 F 74 20 147/90 97
10/01/23 07:00 10/01/23 07:00 10/01/23 07:00 10/01/23 07:00 10/01/23 07:00
Lab Results
10/01/23 06:15
10/01/23 06:15
Physical Exam
General: No Apparent Distress
HEENT: Normocephalic and Anicteric
Respiratory: Non Labored Respirations
Cardiac: S1/S2, Regular Rhythm and Murmur (2/6 syst LSB)
GI: Soft, Non Tender and Non Distended
Genito-urinary: No Costovertebral Tender
Musculoskeletal: No Edema
Skin: Other (Chronic venous stasis changes)
Neuro: Awake, Alert and No Motor Deficits (Generalized lower extremity weakness)
Psych: Calm
Impression / Plan
-
Assess:
MRSA buttocks wound and recurrent bacteremia
Hypertension
History of DVT
Lipids
[id number]-rhegfcmkc diabetes
Spinal stenosis
Depression
Echo : 09/30/23: EF 7075%, thickened aortic valve with mild aortic stenosis, mean gradient of 9. Trace MR
PLan:
He has continuous MRSA bacteremia. Will proceed with transesophageal echo in AM.
Continue daptomycin
Hemoglobin at 7-8. Continue to follow.
Continue Eliquis for DVT
Blood pressure stable on metoprolol and losartan
Data Reviewed
-
EKG: Report Reviewed by me
Radiology: Report Reviewed by me
Medical Tests (Nuc Med, Echo etc): Report Reviewed by me
Labs: Labs Reviewed by me
Old Records: Reviewed
[2023-10-01] MEDS: CUBICIN 20 MG IV (16:52)
[2023-10-01 17:06] LABS: Glucose - Point of Care 181 mg/dl (70-99)
[2023-10-01 21:28] LABS: Glucose - Point of Care 225 mg/dl (70-99)
[2023-10-01] MEDS: AMBIEN 10 MG PO (22:40)
[2023-10-01 23:28] VITALS: BP 140/80
[2023-10-02 06:14] LABS: Glucose - Point of Care 157 mg/dl (70-99)
[2023-10-02] MEDS: NOVOLOG FLEXPEN-LOW RESISTANCE 1 UNITS SC ×2 (06:36→18:20)
--- NOTE | 2023-10-02 08:55 | W.PN.CARDCBS ---
Today's Communication / Plan
-
MOSES with no vegetation
cont daptomycin for MRSA bacteremia
call with questions
Impression / Plan
-
Assess:
MRSA buttocks wound and recurrent bacteremia
Hypertension
History of DVT
Lipids
Xqp-fvqjyir-rxepoixxd diabetes
Spinal stenosis
Depression
Echo : 09/30/23: EF 7075%, thickened aortic valve with mild aortic stenosis, mean gradient of 9. Trace MR
MOSES 10/02/23: EF 55%, thickened aortic valve with trave AI, mild , moderate MR with thickened leaflets, no clear vegetation
PLan:
He has MRSA bacteremia.
MOSES with no evidence of vegetation
Continue daptomycin per ID
Hemoglobin at 7-8. Continue to follow.
Continue Eliquis for DVT
Blood pressure stable on metoprolol and losartan
Progress Note - Detail Manager
Subjective
Date of Service: October 02, 2023
no chest pains/fevers
Objective
Labs:
Labs
Hgb 7.8 g/dL (13.0-18.0) L 10/01/23 06:15
Hct 24.1 % (39.0-52.0) L 10/01/23 06:15
Plt Count 569 10^3/uL (130-400) H 10/01/23 06:15
Sodium 139 mmol/L (135-145) 10/01/23 06:15
Potassium 4.0 mmol/L (3.5-5.1) 10/01/23 06:15
BUN 12 mg/dl (9-20) 10/01/23 06:15
Creatinine 0.8 mg/dL (0.7-1.3) 10/01/23 06:15
Glucose 113 mg/dl (70-99) H 10/01/23 06:15
Vital Signs and I&O:
Vital Signs
Temp Pulse Resp BP Pulse Ox
99.3 F 78 17 140/80 96
10/01/23 23:28 10/01/23 23:28 10/01/23 23:28 10/01/23 23:28 10/01/23 23:28
Vital Signs
Temp Pulse Resp BP Pulse Ox
99.3 F 78 17 140/80 96
10/01/23 23:28 10/01/23 23:28 10/01/23 23:28 10/01/23 23:28 10/01/23 23:28
Intake & Output
09/30/23 10/01/23 10/02/23 10/03/23
06:59 06:59 06:59 06:59
Intake Total 1535 / 1535 2755 / 2755 1380 / 1380
Output Total 2825 / 2825 2625 / 2625
Balance -1290 / -1290 130 / 130 1380 / 1380
Physical Exam
Physical Exam
GEN: No distress, awake, Ox3
HEENT: supple, anicteric, mmm
LUNGS: CTA, no wheezes/rales
CV: Reg, S1/S2, 1/6 syst LSB, no gallop
ABD: soft, BS+, NT/ND
EXT: trace edema
NEURO: Gross non-focal
SKIN: No rash
[2023-10-02 09:48] VITALS: BP 138/80
--- NOTE | 2023-10-02 10:15 | WOUNDNOTE ---
FEMI RN NOTE: Followed up today with nurse who will apply air overlay to bed when dressing on buttock changed.
[2023-10-02 10:27] LABS: Hematocrit 25.5 % (39.0-52.0); Mean Corp Hgb Conc. 31.4 g/dL (33.0-37.0); Mean Corpuscular Hgb 30.9 pg (27.0-31.0); Mean Corpuscular Volume 98.5 fL (80.0-94.0); Mean Platelet Volume 10.2 fL (7.4-10.4); Platelet Count 623 10^3/uL (130-400); Red Blood Cell Count 2.59 10^6/uL (4.70-6.10); Red Cell Dist. Width 16.2 % (11.5-14.5); White Blood Cell Count 5.5 10^3/uL (4.8-10.8)
[2023-10-02] MEDS: VITAMIN D3 (cholecalciferol) 50 MCG PO (10:27)
[2023-10-02] MEDS: LIPITOR 10 MG PO (10:27)
[2023-10-02] MEDS: LOPRESSOR 50 MG PO ×2 (10:27→22:13)
[2023-10-02] MEDS: THERAGRAN 1 TABLET PO (10:28)
[2023-10-02] MEDS: COZAAR 50 MG PO (10:28)
[2023-10-02] MEDS: ELIQUIS 5 MG PO ×2 (10:28→22:13)
[2023-10-02] MEDS: ZYRTEC 10 MG PO (10:28)
[2023-10-02] MEDS: EFFEXOR XR 150 MG PO (10:32)
[2023-10-02] MEDS: HYDROPHOR 1 APPLIC TOPICAL (10:32)
[2023-10-02] MEDS: NOVOLOG FLEXPEN-LOW RESISTANCE SC ×3 (10:42→16:26)
[2023-10-02] MEDS: METAMUCIL, KONSYL PO (10:42)
[2023-10-02 11:18] LABS: Blood Urea Nitrogen 13 mg/dl (9-20); Calcium 8.9 mg/dl (8.4-10.2); Carbon Dioxide 27 mmol/L (22-30); Chloride 106 mmol/L (98-107); Estimated Creatinine Clearance 98 ml/min; Glucose 108 mg/dl (70-99); Potassium 4.6 mmol/L (3.5-5.1); Sodium 140 mmol/L (135-145); eGFR > 60.00
[2023-10-02 12:23] LABS: Glucose - Point of Care 163 mg/dl (70-99)
--- NOTE | 2023-10-02 12:51 | W.PN.HOSP.TC ---
Today's Communication/Plan
-
Case Management working on setup IV antibiotics for after discharge
Anticipated discharge tomorrow
Assessment / Plan
Assessment / Plan
Gen: NAD, AAOx3, appears chronically ill.
Eyes: EOMI, PERRLA, no scleral icterus.
Neck: supple.
CV: remains RRR, +S1/S2, no m/r/g.
Resp: CTAB anteriorly, no rales, wheezes, or rhonchi.
Abd: remains +BS, soft, NT, ND
Neuro: CN 2-12 intact, non-focal.
Psych: Normal mood and affect.
09/27/23 09:46 Blood/Venous Blood Culture - Preliminary
No Growth in 24 hours- Final report to follow
09/26/23 19:41 Nose MRSA Screen - Final
Staph aureus MRSA
09/26/23 15:19 Decubitis Ulcer Wound Culture - Preliminary
09/26/23 15:19 Decubitis Ulcer Gram Stain - Preliminary
09/26/23 11:46 Blood/Venous Blood Culture - Preliminary
Staph aureus MRSA
09/26/23 11:46 Blood/Venous Gram Stain - Final
09/26/23 15:19 Blood/Venous Blood Culture - Preliminary
Positive culture in progress
09/26/23 15:19 Blood/Venous Gram Stain - Preliminary
CT pelvis: Marked edematous/inflammatory changes of the superficial right gluteal soft tissues without findings to confirm accompanying well-formed abnormal focal fluid collection.
Severe sepsis due to Right buttock abscess / carbuncle - s/p I&D
Bacteremia with MRSA - suspected right buttock source
-initial BCxs with MRSA
-Completed IV Vanco, now switched to Daptomycin as per ID, recommendations appreciated
-Continue Daptomycin through 10/16/23
-Hold statin while remains on daptomycin.
-Check baseline CK
-Zosyn stopped
-Echocardiogram could not clearly identify any vegetations
-MOSES and cardiology consult ordered, recommendations appreciated: no vegetations on MOSES performed on 10/02/23
-Status post IV fluids with bicarb
-culture data above, cont to follow
-leukocytosis and lactic acidosis have resolved
-surgery following, and on 09/29/23 they performed incision and drainage of RIGHT buttock wound
-Continue with local wound care: WTD dressing changes daily, cover with dry gauze/ABD and tape
Other problems:
Obesity due to excess calories: Encourage wt loss, affects all aspects of care
Chronic anemia: Trend Hb (acute drop likely dilutional at this point)
JUAN due to sepsis/dehydration: Improving with IVFs.
h/o DVT: Continue Eliquis (it was previously held due to surgery procedure).
HLD: cont statin
Essential hypertension: Gradually resumed antihypertensives.
DM2: a1c 5.8%, cont SSI/accuchecks
Depression: cont Effexor
Spinal Stenosis
Functional paraplegia
FULL/Eliquis
Anticipated Discharge: Within 24 hours
Subjective/Interval History
-
Date of Service: October 02, 2023
Patient was seen and examined. He reported no new symptoms or complaints.
Objective Data
-
Labs:
Laboratory Results
10/02/23
09:44
WBC 5.5
Hgb 8.0 L
Hct 25.5 L
Plt Count 623 H
Sodium 140
Potassium 4.6
Chloride 106
Carbon Dioxide 27
BUN 13
Creatinine 0.8
Glucose 108 H
Calcium 8.9
Vital Signs:
Vital Signs
Temp Pulse Resp BP Pulse Ox
98.7 F 70 16 138/80 94
10/02/23 09:48 10/02/23 09:48 10/02/23 09:48 10/02/23 09:48 10/02/23 09:48
I&O
10/01/23 10/02/23 10/03/23
06:59 06:59 06:59
Intake Total 2755 / 2755 1380 / 1380
Output Total 2625 / 2625
Balance 130 / 130 1380 / 1380
--- NOTE | 2023-10-02 13:56 | W.PN.ID1 ---
Date of Service
Date of Service: October 02, 2023
Today's Communication
Continue daptomycin (d#1) / (abx d#7)
Assessment / Plan
Right buttock abscess / carbuncle
- s/p I&D
MRSA bacteremia
Fever
Leukocytosis
Renal insufficiency
Spinal stenosis
Functional paraplegia/wheelchair-bound
Recommendations:
The MRSA Vanco CAROLYNE found to be elevated, and patient transitioned to daptomycin 10/01/23.
TTE / MOSES negative for vegetation.
Continue daptomycin (d#1) / (abx d#7) through 10/16/23
Hold statin while remains on daptomycin.
Check baseline CK
Local care to buttock wound.
Follow white count and temperature curve.
����������������������������������������������������������
Chief Complaint
-: Bacteremia and Other (Right buttock wound infection)
Subjective / Review of Systems
Review of Systems: No Fever and No Chills
Vital Signs / Physical Exam
Vital Signs
Vital Signs
Temp Pulse Resp BP Pulse Ox
98.7 F 70 16 138/80 94
10/02/23 09:48 10/02/23 09:48 10/02/23 09:48 10/02/23 09:48 10/02/23 09:48
Physical Exam
Constitutional: No Acute Distress, Comfortable and Non-toxic
Eyes: No Conjunctival Hemorrhage and Sclera Anicteric
Cardiovascular: S1/S2 and S3/S4; Negative Murmur
Pulmonary: Non Labored
Gastrointestinal: Soft and Non Tender
Skin: Warm and Dry; Negative Rash or Jaundice
Wound: Other (Right buttock wound dressed. Ongoing induration noted, although improved.)
Neurological: Awake and Alert
Psychological: Calm
Objective Data
Lab Data
Lab Results
10/02/23 09:44
10/02/23 09:44
Estimated Creat Clear 98 ml/min 10/02/23 09:44
Lactic Acid 1.5 mmol/L (0.7-2.0) 09/26/23 15:19
Total Bilirubin 1.4 mg/dl (0.2-1.3) H 09/26/23 11:46
AST 20 U/L (17-59) 09/26/23 11:46
ALT 16 U/L (0-50) 09/26/23 11:46
Alkaline Phosphatase 78 U/L (38-126) 09/26/23 11:46
Most recent labs reviewed.
Micro Results:
09/28/23 11:17 Blood Culture - Preliminary
Blood/Venous No Growth in 4 days- Final report to follow
09/27/23 10:55 Blood Culture - Final
Blood/Venous No Growth - Final Report
09/28/23 10:07 Blood Culture - Preliminary
Blood/Venous No Growth in 4 days- Final report to follow
09/29/23 10:56 Blood Culture - Preliminary
Blood/Venous Staph aureus MRSA
Gram Stain - Preliminary
09/29/23 17:43 Blood Culture - Preliminary
Blood/Venous No Growth in 48 hours- Final report to follow
09/29/23 17:07 Wound Culture - Final
Buttock Staph aureus MRSA
Gram Stain - Final
09/27/23 09:46 Blood Culture - Preliminary
Blood/Venous Staph aureus MRSA
Gram Stain - Preliminary
09/26/23 15:19 Wound Culture - Final
Decubitis Ulcer Staph aureus MRSA
Staphylococcus capitis
Gram Stain - Final
09/26/23 15:19 Blood Culture - Final
Blood/Venous Staph aureus MRSA
Gram Stain - Final
09/26/23 11:46 Blood Culture - Final
Blood/Venous Staph aureus MRSA
Gram Stain - Final
09/26/23 19:41 MRSA Screen - Final
Nose Staph aureus MRSA
Imaging:
09/26/2023 CT pelvis with IV contrast: Marked edematous/inflammatory changes of the superficial right gluteal soft tissues, without findings to confirm accompanying well-formed abnormal focal fluid collection. Please see full dictation for
additional detail.
[2023-10-02 16:23] VITALS: BP 143/75
[2023-10-02] MEDS: CUBICIN 20 MG IV (16:30)
[2023-10-02 16:37] LABS: Glucose - Point of Care 183 mg/dl (70-99)
[2023-10-02 21:54] LABS: Glucose - Point of Care 174 mg/dl (70-99)
[2023-10-02] MEDS: AMBIEN 10 MG PO (22:13)
[2023-10-02 23:49] VITALS: BP 137/66
[2023-10-03 07:02] LABS: Hematocrit 23.7 % (39.0-52.0); Hemoglobin 7.9 g/dL (13.0-18.0); Mean Corp Hgb Conc. 33.3 g/dL (33.0-37.0); Mean Corpuscular Hgb 31.9 pg (27.0-31.0); Mean Corpuscular Volume 95.6 fL (80.0-94.0); Mean Platelet Volume 10.1 fL (7.4-10.4); Platelet Count 638 10^3/uL (130-400); Red Blood Cell Count 2.48 10^6/uL (4.70-6.10); Red Cell Dist. Width 16.4 % (11.5-14.5); White Blood Cell Count 6.5 10^3/uL (4.8-10.8)
[2023-10-03 07:25] LABS: Blood Urea Nitrogen 16 mg/dl (9-20); Carbon Dioxide 26 mmol/L (22-30); Chloride 106 mmol/L (98-107); Creatine Phosphokinase 38 U/L (55-170); Estimated Creatinine Clearance 87 ml/min; Glucose 119 mg/dl (70-99); Potassium 4.8 mmol/L (3.5-5.1); Sodium 139 mmol/L (135-145); eGFR > 60.00
[2023-10-03 07:28] VITALS: BP 147/80
[2023-10-03 07:43] LABS: Glucose - Point of Care 137 mg/dl (70-99)
[2023-10-03] MEDS: NOVOLOG FLEXPEN-LOW RESISTANCE SC (07:54)
[2023-10-03] MEDS: METAMUCIL, KONSYL 1 PACKET PO (07:55)
[2023-10-03] MEDS: EFFEXOR XR 150 MG PO (07:56)
[2023-10-03] MEDS: COZAAR 50 MG PO (07:56)
[2023-10-03] MEDS: ELIQUIS 5 MG PO (07:56)
[2023-10-03] MEDS: VITAMIN D3 (cholecalciferol) 50 MCG PO (07:56)
[2023-10-03] MEDS: ZYRTEC 10 MG PO (07:56)
[2023-10-03] MEDS: HYDROPHOR 1 APPLIC TOPICAL (07:56)
[2023-10-03] MEDS: LOPRESSOR 50 MG PO (07:56)
[2023-10-03] MEDS: THERAGRAN 1 TABLET PO (07:56)
--- NOTE | 2023-10-03 11:35 | W.PN.ID1 ---
Date of Service
Date of Service: October 03, 2023
Today's Communication
Continue current course of daptomycin through 10/16/2023
Assessment / Plan
Right buttock abscess / carbuncle
- s/p I&D
MRSA bacteremia
Fever
Leukocytosis
Renal insufficiency
Spinal stenosis
Functional paraplegia/wheelchair-bound
Recommendations:
The MRSA Vanco CAROLYNE found to be elevated, and patient transitioned to daptomycin 10/01/23.
TTE / MOSES negative for vegetation.
Continue daptomycin (d#2) / (abx d#8) through 10/16/23
Hold statin while remains on daptomycin.
Baseline CK = 38
Rx sheet filled out for prison.
Local care to buttock wound.
����������������������������������������������������������
Chief Complaint
-: Bacteremia and Other (Right buttock wound infection)
Subjective / Review of Systems
Review of Systems: No Fever and No Chills
Vital Signs / Physical Exam
Vital Signs
Vital Signs
Temp Pulse Resp BP Pulse Ox
98.2 F 73 16 147/80 97
10/03/23 07:28 10/03/23 07:56 10/03/23 07:28 10/03/23 07:56 10/03/23 07:28
Physical Exam
Constitutional: No Acute Distress, Comfortable and Non-toxic
Eyes: No Conjunctival Hemorrhage and Sclera Anicteric
Cardiovascular: S1/S2 and S3/S4; Negative Murmur
Pulmonary: Non Labored
Gastrointestinal: Soft and Non Tender
Skin: Warm and Dry; Negative Rash or Jaundice
Wound: Other (Right buttock wound dressed. Ongoing induration noted, although improved.)
Neurological: Awake and Alert
Psychological: Calm
Objective Data
Lab Data
Lab Results
10/03/23 05:32
10/03/23 05:32
Estimated Creat Clear 87 ml/min 10/03/23 05:32
Lactic Acid 1.5 mmol/L (0.7-2.0) 09/26/23 15:19
Total Bilirubin 1.4 mg/dl (0.2-1.3) H 09/26/23 11:46
AST 20 U/L (17-59) 09/26/23 11:46
ALT 16 U/L (0-50) 09/26/23 11:46
Alkaline Phosphatase 78 U/L (38-126) 09/26/23 11:46
Most recent labs reviewed.
Micro Results:
09/28/23 11:17 Blood Culture - Final
Blood/Venous No Growth - Final Report
09/28/23 10:07 Blood Culture - Final
Blood/Venous No Growth - Final Report
09/29/23 17:43 Blood Culture - Preliminary
Blood/Venous No Growth in 72 hours- Final report to follow
09/27/23 10:55 Blood Culture - Final
Blood/Venous No Growth - Final Report
09/29/23 10:56 Blood Culture - Preliminary
Blood/Venous Staph aureus MRSA
Gram Stain - Preliminary
09/29/23 17:07 Wound Culture - Final
Buttock Staph aureus MRSA
Gram Stain - Final
09/27/23 09:46 Blood Culture - Preliminary
Blood/Venous Staph aureus MRSA
Gram Stain - Preliminary
09/26/23 15:19 Wound Culture - Final
Decubitis Ulcer Staph aureus MRSA
Staphylococcus capitis
Gram Stain - Final
09/26/23 15:19 Blood Culture - Final
Blood/Venous Staph aureus MRSA
Gram Stain - Final
09/26/23 11:46 Blood Culture - Final
Blood/Venous Staph aureus MRSA
Gram Stain - Final
09/26/23 19:41 MRSA Screen - Final
Nose Staph aureus MRSA
Imaging:
09/26/2023 CT pelvis with IV contrast: Marked edematous/inflammatory changes of the superficial right gluteal soft tissues, without findings to confirm accompanying well-formed abnormal focal fluid collection. Please see full dictation for
additional detail.
Care Review
Plan reviewed with: Physician (Hospitalist)
[2023-10-03 11:43] LABS: Glucose - Point of Care 166 mg/dl (70-99)
[2023-10-03] MEDS: NOVOLOG FLEXPEN-LOW RESISTANCE 1 UNITS SC ×2 (12:11→17:23)
--- NOTE | 2023-10-03 13:31 | CM ---
Addendum entered by Clarissa Thompson 10/03/23 15:15:
Transport at 6PM
Facility aware
LM on VM of pts
Original Note:
Case management
Pt for discharge today - from [facility]
Will need IV abx - Antibiotic Rx sent via fax [phone]
Will need air mattress - Celia at [facility] aware
Plan - transfer to [facility]
R - [phone]
F - [phone]
--- NOTE | 2023-10-03 13:43 | W.PN.HOSP.TC ---
Today's Communication/Plan
-
Discharge today
Assessment / Plan
Assessment / Plan
Gen: NAD, AAOx3, appears chronically ill.
Eyes: EOMI, PERRLA, no scleral icterus.
Neck: supple.
CV: remains RRR, +S1/S2, no m/r/g.
Resp: CTAB anteriorly, no rales, wheezes, or rhonchi.
Abd: remains +BS, soft, NT, ND
Neuro: CN 2-12 intact, non-focal.
Psych: Normal mood and affect.
09/27/23 09:46 Blood/Venous Blood Culture - Preliminary
No Growth in 24 hours- Final report to follow
09/26/23 19:41 Nose MRSA Screen - Final
Staph aureus MRSA
09/26/23 15:19 Decubitis Ulcer Wound Culture - Preliminary
09/26/23 15:19 Decubitis Ulcer Gram Stain - Preliminary
09/26/23 11:46 Blood/Venous Blood Culture - Preliminary
Staph aureus MRSA
09/26/23 11:46 Blood/Venous Gram Stain - Final
09/26/23 15:19 Blood/Venous Blood Culture - Preliminary
Positive culture in progress
09/26/23 15:19 Blood/Venous Gram Stain - Preliminary
CT pelvis: Marked edematous/inflammatory changes of the superficial right gluteal soft tissues without findings to confirm accompanying well-formed abnormal focal fluid collection.
Severe sepsis due to Right buttock abscess / carbuncle - s/p I&D
Bacteremia with MRSA - suspected right buttock source
-initial BCxs with MRSA
-Completed IV Vanco, now switched to Daptomycin as per ID, recommendations appreciated
-Continue Daptomycin through 10/16/23
-Hold statin while remains on daptomycin.
-Checked baseline CK
-Zosyn stopped previously
-Echocardiogram could not clearly identify any vegetations
-MOSES and cardiology consult ordered: no vegetations on MOSES performed on 10/02/23
-Status post IV fluids with bicarb
-culture data above, cont to follow
-leukocytosis and lactic acidosis have resolved
-surgery following, and on 09/29/23 they performed incision and drainage of RIGHT buttock wound
-Continue with local wound care: WTD dressing changes daily, cover with dry gauze/ABD and tape
Other problems:
Mild Aortic Stenosis
Trivial pericardial effusion
Obesity due to excess calories: Encourage wt loss, affects all aspects of care
Chronic anemia: Trend Hb (acute drop likely dilutional at this point)
JUAN due to sepsis/dehydration: Improving with IVFs.
h/o DVT: Continue Eliquis (it was previously held due to surgery procedure).
HLD: cont statin
Essential hypertension: Gradually resumed antihypertensives.
DM2: a1c 5.8%, cont SSI/accuchecks
Depression: cont Effexor
Spinal Stenosis
Functional paraplegia
FULL/Eliquis
More than 30 minutes spent in discharge including
Final examination of the patient
Summarizing hospital stay
Instructions for continuing care to all relevant caregivers
Preparation of discharge records, prescriptions, and referral forms
Total time spent (in minutes): 40
Anticipated Discharge: Today
Subjective/Interval History
-
Date of Service: October 03, 2023
Patient was seen and examined. He denied chest pain, shortness of breath, abdominal pain or any other symptoms or complaints.
Objective Data
-
Labs:
Laboratory Results
10/03/23
05:32
WBC 6.5
Hgb 7.9 L
Hct 23.7 L
Plt Count 638 H
Sodium 139
Potassium 4.8
Chloride 106
Carbon Dioxide 26
BUN 16
Creatinine 0.9
Glucose 119 H
Calcium 9.0
Vital Signs:
Vital Signs
Temp Pulse Resp BP Pulse Ox
98.2 F 73 16 147/80 97
10/03/23 07:28 10/03/23 07:56 10/03/23 07:28 10/03/23 07:56 10/03/23 07:28
I&O
10/02/23 10/03/23 10/04/23
06:59 06:59 06:59
Intake Total 1380 / 1380 480 / 480
Output Total 150 / 150
Balance 1380 / 1380 330 / 330
--- NOTE | 2023-10-03 14:23 | W.DS.TRANS ---
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
-
Discharge Instructions:
Discharge Diagnosis/Procedures Severe sepsis due to Right buttock abscess /
carbuncle - status post incision and drainage
Bacteremia with MRSA - suspected right buttock
source
Mild Aortic Stenosis
Trivial pericardial effusion
Obesity due to excess calories
Chronic anemia
JUAN due to sepsis/dehydration
History of DVT
Hyperlipidemia
Essential hypertension
Type 2 Diabetes Mellitus
Depression
Spinal Stenosis
Functional paraplegia
Diet Diabetic, Carb Controlled,2 Gram Sodium,Low
Sodium,Low Fat,Low Cholesterol
Blood Work Needs CBC, CMP and CK by Friday October 06, 2023
Instructions:
Stand-Alone Forms:
Changes to Home Medications: Yes
Discharge Medications:
DC Medications w/original date entered in [facility]
acetaminophen 325 mg tablet (Tylenol) 650 mg PO Q6HPRN PRN mild pain 09/26/23
apixaban 5 mg tablet (Eliquis) 5 mg PO BID Blood Clot Prevention/Tx 09/26/23
atorvastatin 10 mg tablet (Lipitor) 10 mg PO DAILY High Cholesterol 09/26/23
bisacodyl 10 mg rectal suppository (Dulcolax (bisacodyl)) 10 mg [place] DAILYPRN PRN if no bm aftr mom 09/26/23
cetirizine 10 mg tablet (Zyrtec) 10 mg PO DAILY Allergies 09/26/23
cholecalciferol (vitamin D3) 50 mcg (2,000 unit) tablet (Vitamin D3) 50 mcg PO DAILY Supplement 09/26/23
dextromethorphan-guaifenesin 10 mg-100 mg/5 mL oral syrup 10 ml PO Q6HPRN PRN cough 09/26/23
hydrochlorothiazide 25 mg tablet 25 mg PO DAILY Blood Pressure 09/26/23
loperamide 2 mg tablet 2 mg PO Q6HPRN PRN diarrhea 09/26/23
losartan 50 mg tablet 50 mg PO DAILY Blood Pressure 09/26/23
magnesium hydroxide 400 mg/5 mL oral suspension (Milk of Magnesia) 2,400 mg PO HSPRN PRN if no bm on 3rd day 09/26/23
metformin 1,000 mg tablet 1,000 mg PO BID Diabetes 09/26/23
metoprolol tartrate 50 mg tablet (Lopressor) 50 mg PO BID Blood Pressure 09/26/23
psyllium 1 packet PO DAILY Gastrointestinal Issue 09/26/23
sitagliptin phosphate 100 mg tablet (Januvia) 100 mg PO DAILY Diabetes 09/26/23
therapeutic multivitamin 1 tab PO DAILY Supplement 09/26/23
venlafaxine 150 mg capsule,extended release 24 hr (Effexor XR) 150 mg PO DAILY Mental Health 09/26/23
zolpidem 10 mg tablet 10 mg PO HS Sleep 09/26/23
DAPTOmycin [Cubicin] 1,000 mg As Directed mls/hr IV Q24H 10/03/23
Home Medication Changes
-Daptomycin is new and should be taken according the instructions sent by infectious diseases.
-Atorvastatin is on hold until AFTER finishing Daptomycin. Atorvastatin should NOT be taken while on Daptomycin.
-Hydrochlorothiazide is on hold.
Pending Results: Yes
Additional Pending Results:
Final results of blood cultures from hospitalization.
Total time spent discharging patient (in min): 40
[2023-10-03 15:42] VITALS: BP 137/75
[2023-10-03 16:56] LABS: Glucose - Point of Care 161 mg/dl (70-99)
[2023-10-03] MEDS: CUBICIN 20 MG IV (17:22)
== END 2023-10-03 18:47 | DRG 872 ==
LOC: 3 WEST ACU 16:01
PROVIDERS: Registered Nurse; ADMITTING PHYSICIAN Internal Medicine; ATTENDING PHYSICIAN Hospitalist; CONSULT PHYSICIAN Internal Medicine Cardiovascular Disease; CONSULT PHYSICIAN Internal Medicine Infectious Disease; CONSULT PHYSICIAN Surgery; EMERGENCY PHYSICIAN Emergency Medicine; FAMILY PHYSICIAN Internal Medicine
PROC: 0Y900ZZ Drainage of Right Buttock, Open Approach (ICD-10-PCS; 2023-09-29)
DX: A41.02 Sepsis due to Methicillin resistant Staphylococcus aureus (principal); L03.317 Cellulitis of buttock; L02.31 Cutaneous abscess of buttock; I31.39 Other pericardial effusion (noninflammatory); N17.8 Other acute kidney failure; D63.8 Anemia in other chronic diseases classified elsewhere; E11.51 Type 2 diabetes mellitus with diabetic peripheral angiopathy without gangrene; F32.A Depression, unspecified; D64.9 Anemia, unspecified; I10 Essential (primary) hypertension; I35.0 Nonrheumatic aortic (valve) stenosis; E66.9 Obesity, unspecified; Z68.32 Body mass index [BMI] 32.0-32.9, adult; L89.319 Pressure ulcer of right buttock, unspecified stage; F44.4 Conversion disorder with motor symptom or deficit; R65.20 Severe sepsis without septic shock; E78.5 Hyperlipidemia, unspecified; E11.9 Type 2 diabetes mellitus without complications; F41.9 Anxiety disorder, unspecified; G47.00 Insomnia, unspecified; M48.00 Spinal stenosis, site unspecified; Z99.3 Dependence on wheelchair; Z79.01 Long term (current) use of anticoagulants; Z79.84 Long term (current) use of oral hypoglycemic drugs; Z79.899 Other long term (current) drug therapy; Z86.718 Personal history of other venous thrombosis and embolism; Z87.891 Personal history of nicotine dependence; Z90.49 Acquired absence of other specified parts of digestive tract
CPT/HCPCS: 51798; 72193; 80048; 80053; 80202; 82550; 82962; 83036; 83605; 85025; 85027; 87040; 87070; 87147; 87150; 87186; 87205; 93005; 93306; 93312; 93320; 93325; 96361; 96365; 96366; 97162; 97166; 99285; J0878; Q9967

== ENCOUNTER 2023-10-14 19:37 | Inpatient (IN) | payer MEDICARE, SELFPAY ==
[2023-10-14 15:03] VITALS: BMI 33.5
--- NOTE | 2023-10-14 15:06 | ED.GENMED ---
History of Present Illness
<Lorena Ruelas PA-C - Last Filed: 10/14/23 18:44>
General
Chief Complaint: Musculo-Skeletal Complaint
Source: patient
Exam Limitations: none
Time Seen by Provider: 10/14/23 15:05
Nursing documentation reviewed up to this point in time: agreed with
Travel History
Have you had any contact with someone who has COVID-19?: No
Do you have any symptoms of coronavirus? Fever > 100 degrees, chills, cough, shortness of breath, sore throat, loss of taste or smell, muscle aches, or headache?: No
History of Present Illness
History of Present Illness:
This is a 83 y/o male with past medical history of diabetes, hypertension, hyperlipidemia presenting to emergency department today with concerns of right inner thigh pain following a fall. Patient states that he is wheelchair-bound at baseline due
to his neuropathy when he was getting out of bed this morning trying to transition to his wheelchair, he lost his balance and fell. Patient denies any dizziness, lightheadedness, chest pain prior to fall. Patient not lose consciousness or hit his
head at all, he states he landed on his buttock. Patient states that he lives at an assisted living facility where they are able to do x-rays tenderness at his right hip after falling. Patient currently endorses right hip pain but denies any right
upper extremity pain, and pain elsewhere. Patient has abdominal pain, chest pain or shortness of breath. Patient denies any feelings of fevers or chills, cough, pain from his gluteal wounds.
Review of Systems
<Lorena Ruelas PA-C - Last Filed: 10/14/23 18:44>
Review of Systems
All Other Systems: ROS reviewed and negative except as documented in HPI and ROS
Phy Exam
<Lorena Ruelas PA-C - Last Filed: 10/14/23 18:44>
Physical Exam
Physical Exam:
General: Patient is well appearing and in no acute distress; non-toxic
Skin: Warm and dry, mild erythema noted to bilateral lower extremities with some overlying skin scaling. No open wounds. There are 2 wounds on patient's right buttock with tissue induration and purulent drainage but no signs of necrosis, no
obvious tunneling on exam.
Head: Normocephalic, atraumatic
Eyes: Sclera non-icteric. EOMs intact. PERRLA.
Cardiac: Regular rate and rhythm, no murmurs. Tenderness palpation midsternal chest wall.
Peripheral Vascular: Mild edema noted in bilateral lower extremities, 2+ dorsalis pedis pulses bilaterally
Pulm: Normal respiratory effort, no wheezes, rales, or rhonchi.
Abdomen: No abdominal tenderness on exam, no palpable masses. No signs of trauma.
Musculoskeletal: Mild tenderness palpation of the right proximal femur with no overlying ecchymosis, pain with passive range of motion of right lower extremity. No bony tenderness palpation of bilateral upper extremities.
Neuro: CN II-XII intact, no focal neurologic deficits.
Psychiatric: Appropriate mood and affect.
Course
<Lorena Ruelas PA-C - Last Filed: 10/14/23 18:44>
Orders/Labs/Results
Orders:
Orders
10/14/23 15:06
Electrocardiogram (*1) Urgent
Reason for Study: Other
Other Reason for Exam: Possible Sepsis
10/14/23 15:07
EKG- Treatment ONCE
10/14/23 15:10
Complete Blood Count/With Diff Urgent
Comprehensive Metabolic Panel Urgent
Ferritin Urgent
Comment: ADD ON
Iron Urgent
Comment: ADD ON
Lactic Acid Q4H
Comment: ON ICE, CANCEL 2ND ORDER IF FIRST LACTIC ACID LEVEL <2
Total Iron Binding Urgent
Comment: ADD ON
Urinalysis Reflex To Culture Urgent
Date Specimen was Collected: 10/14/23
Time Specimen was Collected: 15:07
Vitamin B12 Urgent
Comment: ADD ON
Blood Culture Q30M
[facility] Source: Blood/Venous
Specimen Description:
Comment: FROM 2 SEPARATE SITES
10/14/23 15:19
Blood Culture Q30M
[facility] Source: Blood/Venous
Specimen Description:
Comment: FROM 2 SEPARATE SITES
10/14/23 15:22
Acetaminophen [Tylenol] 650 mg PO NOW STA
10/14/23 15:34
Wound Culture [Wound/Abscess/Other Culture] Urgent
[facility] Source: Buttock
Specimen Description:
Date Specimen was Collected: 10/14/23
Time Specimen was Collected: 15:31
10/14/23 16:18
Hip, Right 2-3 Views [CR Hip - RT w/wo Pel 2-3 Vw*] Urgent
Comment:
Reason For Exam: fall
Include a pelvis x-ray?: Yes
10/14/23 18:31
Add On- LAB Urgent
Tests Added?: b12 folate, iron, tibc ferritin
Type+Screen Urgent
10/14/23 19:15
Lactic Acid Q4H
Comment: ON ICE, CANCEL 2ND ORDER IF FIRST LACTIC ACID LEVEL <2
Abnormal Lab Results
10/14/23
15:10
RBC 2.90 L 10^6/uL
(4.70-6.10)
Hgb 9.1 L g/dL
(13.0-18.0)
Hct 28.6 L %
(39.0-52.0)
MCV 98.6 H fL
(80.0-94.0)
MCH 31.4 H pg
(27.0-31.0)
MCHC 31.8 L g/dL
(33.0-37.0)
RDW 17.6 H %
(11.5-14.5)
Plt Count 654 H 10^3/uL
(130-400)
MPV 10.5 H fL
(7.4-10.4)
Abs Immat Gran (auto) 0.1 H 10^3/uL
(0-0.05)
Immature Gran % 0.8 H %
(0-0.5)
Lymphocytes % 19.5 L %
(20.5-51.1)
Carbon Dioxide 21 L mmol/L
(22-30)
BUN 22 H mg/dl
(9-20)
Glucose 121 H mg/dl
(70-99)
10/14/23 15:10
10/14/23 15:10
Vital Signs
Initial and Last Documented VS:
Initial Vital Signs
Temp Pulse Ox
100.3 F 94
10/14/23 15:03 10/14/23 15:03
Last Documented Vital Signs
Temp Pulse Resp BP Pulse Ox
98.8 F 68 18 135/74 95
10/14/23 18:34 10/14/23 17:30 10/14/23 17:30 10/14/23 17:00 10/14/23 16:30
<Archie Marcelo, DO - Last Filed: 10/14/23 15:56>
Orders/Labs/Results
Orders:
Orders
10/14/23 15:06
Electrocardiogram (*1) Urgent
Reason for Study: Other
Other Reason for Exam: Possible Sepsis
10/14/23 15:07
EKG- Treatment ONCE
10/14/23 15:10
Complete Blood Count/With Diff Urgent
Comprehensive Metabolic Panel Urgent
Ferritin Urgent
Comment: ADD ON
Iron Urgent
Comment: ADD ON
Lactic Acid Q4H
Comment: ON ICE, CANCEL 2ND ORDER IF FIRST LACTIC ACID LEVEL <2
Total Iron Binding Urgent
Comment: ADD ON
Urinalysis Reflex To Culture Urgent
Date Specimen was Collected: 10/14/23
Time Specimen was Collected: 15:07
Vitamin B12 Urgent
Comment: ADD ON
Blood Culture Q30M
[facility] Source: Blood/Venous
Specimen Description:
Comment: FROM 2 SEPARATE SITES
10/14/23 15:19
Blood Culture Q30M
[facility] Source: Blood/Venous
Specimen Description:
Comment: FROM 2 SEPARATE SITES
10/14/23 15:22
Acetaminophen [Tylenol] 650 mg PO NOW STA
10/14/23 15:34
Wound Culture [Wound/Abscess/Other Culture] Urgent
[facility] Source: Buttock
Specimen Description:
Date Specimen was Collected: 10/14/23
Time Specimen was Collected: 15:31
10/14/23 16:18
Hip, Right 2-3 Views [CR Hip - RT w/wo Pel 2-3 Vw*] Urgent
Comment:
Reason For Exam: fall
Include a pelvis x-ray?: Yes
10/14/23 18:31
Add On- LAB Urgent
Tests Added?: b12 folate, iron, tibc ferritin
Type+Screen Urgent
10/14/23 19:15
Lactic Acid Q4H
Comment: ON ICE, CANCEL 2ND ORDER IF FIRST LACTIC ACID LEVEL <2
Abnormal Lab Results
10/14/23
15:10
RBC 2.90 L 10^6/uL
(4.70-6.10)
Hgb 9.1 L g/dL
(13.0-18.0)
Hct 28.6 L %
(39.0-52.0)
MCV 98.6 H fL
(80.0-94.0)
MCH 31.4 H pg
(27.0-31.0)
MCHC 31.8 L g/dL
(33.0-37.0)
RDW 17.6 H %
(11.5-14.5)
Plt Count 654 H 10^3/uL
(130-400)
MPV 10.5 H fL
(7.4-10.4)
Abs Immat Gran (auto) 0.1 H 10^3/uL
(0-0.05)
Immature Gran % 0.8 H %
(0-0.5)
Lymphocytes % 19.5 L %
(20.5-51.1)
Carbon Dioxide 21 L mmol/L
(22-30)
BUN 22 H mg/dl
(9-20)
Glucose 121 H mg/dl
(70-99)
10/14/23 15:10
10/14/23 15:10
Vital Signs
Initial and Last Documented VS:
Initial Vital Signs
Temp Pulse Ox
100.3 F 94
10/14/23 15:03 10/14/23 15:03
Last Documented Vital Signs
Temp Pulse Resp BP Pulse Ox
98.8 F 68 18 135/74 95
10/14/23 18:34 10/14/23 17:30 10/14/23 17:30 10/14/23 17:00 10/14/23 16:30
Haileylt;Lorena Ruelas PA-C - Last Filed: 10/14/23 18:44>
MDM/Problems Addressed
Differential Diagnosis Includes:
Differentials include femur fracture, pelvic fracture, COVID, flu, cellulitis, abscess, diabetic ulcer, urinary tract infection, bacteremia
MDM/Problems Addressed:
Hip pain following fall, fever:
This is a 83 y/o male with past medical history of diabetes, hypertension, hyperlipidemia presenting to emergency department today with concerns of right inner thigh pain following a fall. Patient states that he is wheelchair-bound at baseline due
to his neuropathy when he was getting out of bed this morning trying to transition to his wheelchair, he lost his balance and fell. Patient does take Eliquis but does not hit his head when he fell. On exam, he does have some tenderness palpation
of the proximal right femur with a chronic wound on his right buttocks. He does have a today low-grade but other than his right hip pain, he is completely asymptomatic. CBC demonstrates chronic anemia and CMP unremarkable. Urinalysis pending.
Blood cultures pending. Will plan to admit for further evaluation of fever and repair of hip.
Chronic conditions affecting care:
Hypertension, hyperlipidemia, diabetes, diabetic neuropathy
Acute Exacerbation and/or Progression of Chronic Illness:
Diabetes, hypertension, diabetic,
<Lorena Ruelas PA-C - Last Filed: 10/14/23 18:44>
*Pulse Oximetry
Patient hypoxic: no
*Critical Care Note
Total Time (30-74mins, 75-104mins- exclusive of procedures): Not Applicable
Data Reviewed
Review of Other/Old Records Reveals: Records (Reviewed most recent discharge summary, reviewed ER physician at [facility] from 09/26/2023 patient was hospitalized for MRSA bacteremia with source likely being buttocks wound)
Source: patient and records
<Lorena Ruelas PA-C - Last Filed: 10/14/23 18:44>
Patient Management
Discussion with other providers: Hospitalist and [employer] Preparation Supervisor
Escalation/DeEscalation of care consider admission/obs:
Admission indicated
ED Attending Note
<AFSANEH Clancy Last Filed: 10/14/23 18:44>
-
Portions of this chart may have been created with voice recognition software.� Occasional wrong word or��sound alike� substitutions may have occurred due to the inherent limitations of voice recognition software.
<Archie Marcelo DO - Last Filed: 10/14/23 15:56>
ED Attending Note
Patient seen and examined by attending physician: Yes
I performed the substantive portion of visit, reviewed & personally made and approve the management plan that is documented in note by myself or ARIAN.: Yes
ED Attending Note:
Seen with PA examined independently elderly male fell out of bed at his [facility], apparently had outpatient x-rays that showed a right hip or femur fracture low-grade temperature noted prior records briefly reviewed MRSA bacteremia, apparently
is a wound on his right gluteal cleft, mental status appears intact no noted head strike, will check labs cultures try to upload his outpatient x-rays obviously will require admission
Discharge Plan
Departure
Patient Disposition: Admit
Date of Disposition: 10/14/23
Time of Disposition: 18:18
Admit to: Med/Surg
Presentation/result/management discussed w/ accepting MD/DO: Hospitalist
Patient with high blood pressure during this ER visit?: Yes
Condition: Fair
Discharge Problem:
Fracture of neck of right femur, Fever, low grade
Prescriptions:
No Action
losartan 50 mg Tablet
50 mg PO DAILY
acetaminophen [Tylenol] 325 mg Tablet
650 mg PO Q6HPRN PRN (Reason: mild pain, general discomfort)
cetirizine [Zyrtec] 10 mg Tablet
10 mg PO DAILY
atorvastatin [Lipitor] 10 mg Tablet
10 mg PO HS
Hold Instructions: Resume on 10/17/23. Resume this medication only after finishing taking Daptomycin.
Patient Comments:
10/14/23: on hold from prior discharge, resume on 10/17/23
psyllium Packet
1 packet PO DAILY
dextromethorphan-guaifenesin 10-100 mg/5 mL Syrup
10 ml PO Q6HPRN PRN (Reason: cough)
magnesium hydroxide [Milk of Magnesia] 400 mg/5 mL Suspension
2,400 mg PO [id number] PRN (Reason: if no bm on 3rd day)
bisacodyl [Dulcolax (bisacodyl)] 10 mg Suppository
10 mg [place] DAILYPRN PRN (Reason: if no bm aftr mom)
metformin 1,000 mg Tablet
1,000 mg PO BID
metoprolol tartrate [Lopressor] 50 mg Tablet
50 mg PO BID
hydrochlorothiazide 25 mg Tablet
25 mg PO DAILY
Hold Instructions: Resume on 10/24/23. Do not resume this medication until and unless advised to do so by your outpatient physicians.
Patient Comments:
10/14/23: on hold from prior discharge, resume on 10/24/23
zolpidem 10 mg Tablet
10 mg PO HS
Januvia 100 mg Tablet
100 mg PO DAILY
Eliquis 5 mg Tablet
5 mg PO BID
DAPTOmycin [Cubicin] 1000 MG
Syringe [Syringe-Pump] 0 ML
As Directed mls/hr IV Q24H
Ordered By: Christiano Sánchez MD
Last Taken: Unknown
Patient Comments:
10/14/23: start on 10/14/23, end on 10/17/23
loperamide 2 mg Capsule
2 mg PO Q6HPRN PRN (Reason: diarrhea)
miconazole nitrate [Antifungal (miconazole)] 2 % Powder
1 applic TOPICAL BID
Patient Comments:
10/14/23: starting on 10/14/23, ending on 10/28/23
Theragen Tablet
1 tab PO DAILY
mineral oil [Mineral Oil Light] Oil
1 applic TOPICAL DAILY
cholecalciferol (vitamin D3) [Vitamin D3] 25 mcg (1,000 unit) Tablet
50 mcg PO DAILY
venlafaxine 150 mg Tablet Extended Release 24hr
150 mg PO DAILY
Referrals:
Payam De Souza I., DO [Family Provider] -
Interventions
Interventions:
*Risk Screen - Suicide Last Done: 10/14/23 15:03
*General Assessment Last Done: 10/14/23 16:30
*Neglect/Abuse Screening Last Done: 10/14/23 16:30
ED- Fall Risk Assessment Last Done: 10/14/23 16:30
ED-Musculoskeletal Assessment Last Done: 10/14/23 16:30
Discharge Date and Time
Print Language: MALAY
[2023-10-14 15:23] LABS: % Basophils 0.2 % (0-2); % Eosinophils 0.3 % (0-6); % Immature Granulocytes 0.8 % (0-0.5); % Lymphocytes 19.5 % (20.5-51.1); % Monocytes 8.2 % (1.7-9.3); Absolute Immature Granulocytes 0.1 10^3/uL (0-0.05); Absolute Lymphocytes 1.2 10^3/uL (1.2-3.4); Absolute Monocytes 0.5 10^3/uL (0.1-0.6); Absolute Neutrophils 4.2 10^3/uL (1.4-6.5); Hematocrit 28.6 % (39.0-52.0); Hemoglobin 9.1 g/dL (13.0-18.0); Mean Corp Hgb Conc. 31.8 g/dL (33.0-37.0); Mean Corpuscular Hgb 31.4 pg (27.0-31.0); Mean Corpuscular Volume 98.6 fL (80.0-94.0); Mean Platelet Volume 10.5 fL (7.4-10.4); Nucleated Red Blood Cells % 0.3 % (-); Platelet Count 654 10^3/uL (130-400); Red Cell Dist. Width 17.6 % (11.5-14.5)
[2023-10-14] MEDS: TYLENOL 650 MG PO ×2 (15:25→22:50)
[2023-10-14 15:43] LABS: Lactic Acid 1.8 mmol/L (0.7-2.0)
[2023-10-14 15:48] LABS: ALT (SGPT) 27 U/L (0-50); AST (SGOT) 38 U/L (17-59); Alkaline Phosphatase 91 U/L (38-126); Blood Urea Nitrogen 22 mg/dl (9-20); Calcium 9.8 mg/dl (8.4-10.2); Carbon Dioxide 21 mmol/L (22-30); Chloride 106 mmol/L (98-107); Glucose 121 mg/dl (70-99); Potassium 4.3 mmol/L (3.5-5.1); Sodium 138 mmol/L (135-145); Total Bilirubin 1.3 mg/dl (0.2-1.3); Total Protein 7.9 g/dl (6.3-8.2); eGFR > 60.00
[2023-10-14 16:00] VITALS: BP 136/92
[2023-10-14 17:00] VITALS: BP 135/74
--- NOTE | 2023-10-14 18:23 | HPS.HSE ---
Family Physician
-
Family Physician: Payam De Souza
Chief Complaint
-
Fall out of bed
History of Present Illness
83-year-old male while getting out of his bed to attempt to transition to the wheelchair but states he rolled out of the bed onto the floor landing on his right hip. He denies any LOC but he reports landing on his buttocks. He lives at assisting
living facility. In the ER was noted to have a femoral neck fracture of the right hip. He has a low-grade temp of 100.3 which self resolved to 98.6. He has a wound to his stage II right buttocks pressure ulcer with negative exudate or
surrounding erythema. He denies headache, sore throat, chills, chest pain, palpitations, shortness breath, cough, abdominal pain, nausea, vomiting, diarrhea, urinary symptoms.
The patient had a recent admission 09/25 - 10/03/2023 for right buttocks wound associated with sepsis secondary to spinal stenosis/functional paraplegia/wheelchair bound and JUAN. He was noted to have MRSA bacteremia he had MOSES with no vegetation. He
is on current daptomycin through 10/16/2023.
He has past medical history of MRSA bacteremia 09/26/2023, right buttocks wound spinal stenosis with neuropathy, chronic pedal edema ,wheelchair-bound, DM2, HTN, HLD, DVT on Eliquis, insomnia, HLD, depression,
Medical History
Past Medical History
Past Medical History: Reports Other
Additional Past Medical History:
MRSA bacteremia 09/26/2023
Right buttocks wound, chronic wheelchair-bound
Spinal stenosis
DVT
Hypertension
Insomnia
PVD, chronic pedal edema
Type 2 diabetes
Hyperlipidemia
Depression
Past Surgical History: Reports Appendectomy
Additional Past Surgical History:
Appendectomy
Social History
Tobacco: Non-smoker
Alcohol: None
Drug: None
Personal: Single
Living: Retirement
Family History
Family History: Not pertinent
Allergies / Home Medications
Allergies reflects when Allergies were last updated in [email or web address].
Home Medications with original date entered in [email or web address]
Allergy/Medication List:
Allergies
Allergy/AdvReac Type Severity Reaction Status Date / Time
No Known Allergies Allergy Unverified 09/26/23 11:41
Home Medications
acetaminophen 325 mg tablet (Tylenol) 650 mg PO Q6HPRN PRN mild pain, general discomfort 09/26/23
apixaban 5 mg tablet (Eliquis) 5 mg PO BID Blood Clot Prevention/Tx 09/26/23
atorvastatin 10 mg tablet (Lipitor) 10 mg PO HS High Cholesterol 09/26/23
bisacodyl 10 mg rectal suppository (Dulcolax (bisacodyl)) 10 mg DC DAILYPRN PRN if no bm aftr mom 09/26/23
cetirizine 10 mg tablet (Zyrtec) 10 mg PO DAILY Allergies 09/26/23
dextromethorphan-guaifenesin 10 mg-100 mg/5 mL oral syrup 10 ml PO Q6HPRN PRN cough 09/26/23
hydrochlorothiazide 25 mg tablet 25 mg PO DAILY Blood Pressure 09/26/23
losartan 50 mg tablet 50 mg PO DAILY Blood Pressure 09/26/23
magnesium hydroxide 400 mg/5 mL oral suspension (Milk of Magnesia) 2,400 mg PO [id number] PRN if no bm on 3rd day 09/26/23
metformin 1,000 mg tablet 1,000 mg PO BID Diabetes 09/26/23
metoprolol tartrate 50 mg tablet (Lopressor) 50 mg PO BID Blood Pressure 09/26/23
psyllium 1 packet PO DAILY Gastrointestinal Issue 09/26/23
sitagliptin phosphate 100 mg tablet (Januvia) 100 mg PO DAILY Diabetes 09/26/23
zolpidem 10 mg tablet 10 mg PO HS Sleep 09/26/23
DAPTOmycin [Cubicin] 1,000 mg As Directed mls/hr IV Q24H 10/03/23
cholecalciferol (vitamin D3) 25 mcg (1,000 unit) tablet (Vitamin D3) 50 mcg PO DAILY 10/14/23
loperamide 2 mg capsule 2 mg PO Q6HPRN PRN diarrhea 10/14/23
miconazole nitrate 2 % topical powder (Antifungal (miconazole)) 1 applic topical BID B/L axilla 10/14/23
mineral oil (Mineral Oil Light topical) 1 applic topical DAILY B/L legs and feet 10/14/23
therapeutic multivitamin 1 tab PO DAILY 10/14/23
venlafaxine 150 mg tablet,extended release 24 hr 150 mg PO DAILY 10/14/23
Review of Systems
-
History Source: Patient
A 12 point ROS was completed and negative except as noted: Yes
Constitutional: Denies Fever or Chills
EENT: Denies Tearing or Runny Nose
Respiratory: Denies Cough or Trouble Breathing
Cardiac: Denies Chest Pain, Diaphoresis, Palpitations or Syncope
Abdomen/GI: Denies Abdominal Pain, Nausea, Vomiting, Diarrhea, Constipated, Bloody Stools or Black Stools
: Denies Dysuria, Frequency, Flank Pain, Incontinence, Difficulty Voiding or Urgency
Musculoskeletal: Reports Joint Pain (Right hip) and Edema (Chronic pedal edema +2, slight erythema bilateral lower extremities)
Skin: Reports Other (Stage II right buttocks wound no exudate or surrounding erythema); Denies Itching or Rash
Neurological: Denies Dizzy or Headache
Endocrine: Reports No Symptoms
Hematologic/Lymphatic: Reports No Symptoms
Psych: Reports Calm
Physical Exam
Vital Signs
Vital Signs
Temp Pulse Resp BP Pulse Ox
100.3 F 68 18 135/74 95
10/14/23 15:03 10/14/23 17:30 10/14/23 17:30 10/14/23 17:00 10/14/23 16:30
Physical Exam
General: Comfortable, Conversant and Fever; No Chills
HEENT: NormoCephalic, Anicteric, Moist mucous membranes, Atraumatic, PERRLA, [place] Conjunctivae and No Ptosis
Respiratory: Clear; No Wheezes, Rales or Rhonchi
Cardiac: S1/S2, Regular Rhythm and Peripheral Edema (+2 pedal); No Murmur, Rub or Gallop
Breast: Deferred by me
GI: Soft, Non Tender, Non Distended, Normal Bowel Sounds and No Hepatosplenomegaly
Rectal: Deferred by Provider
Genito-urinary: Deferred by me
Musculoskeletal: No Clubbing, No Cyanosis, Edema, Left Lower Extremity (+2 pedal edema) and Edema, Right Lower Extremity (+2 pedal edema); No Edema, Left Upper Extremity or Edema, Right Upper Extremity
Skin: Warm, Dry and Ulcers (Stage II right buttocks wound no exudate or surrounding erythema)
Neuro: AO x 3, No Motor Deficits and Nonfocal/grossly intact; No Slurred Speech, Facial Droop, Tremors or Sedated
Psych: Calm
Laboratory Results
-
10/14/23 15:10
10/14/23 15:10
Laboratory Results
Lactic Acid 1.8 mmol/L (0.7-2.0) 10/14/23 15:10
Total Bilirubin 1.3 mg/dl (0.2-1.3) 10/14/23 15:10
AST 38 U/L (17-59) 10/14/23 15:10
ALT 27 U/L (0-50) 10/14/23 15:10
Alkaline Phosphatase 91 U/L (38-126) 10/14/23 15:10
Data Reviewed
-
Diagnostic Radiology: Report Reviewed by me
Lab Data: Labs Reviewed by me
Impression/Plan
-
Impression/plan:
Admit to MedSurg
#Mechanical fall with right femoral neck fracture
#Spinal stenosis with neuropathy wheelchair-bound
-Consult Ortho-Dr. Corbett aware
--Type and screen, blood consent obtained
-Hold Eliquis last dose was 10/14/2023 in a.m.
-Will require OR on
-Tylenol as needed mild pain, Percocet moderate pain, Dilaudid severe pain
#Acute febrile illness unclear
Temp 100.3 F, >98.6
WBC 6
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
-Check wound culture right buttock
#Recent MRSA bacteremia 09/26/2023
#Right buttocks wound, chronic wheelchair-bound/Spinal stenosis
-Continue daptomycin through 10/16/2023
#DVT hx right leg greater than 5 years ago
-Hold Eliquis 5 mg twice daily
#Hypertension
Continue losartan, metoprolol tartrate 50 mg twice daily
#Type 2 diabetes
-Hold metformin
-Continue Januvia 100 mg daily
-Accu-Cheks with SSI, check HgbA1c
#Chronic anemia macrocytic
Hgb 9.1 baseline appears 8
-Check B12, folate, iron panel
#Insomnia
-Continue Ambien 10 mg p.o. at bedtime
#PVD
#Hyperlipidemia
-Lipitor on hold due to IV daptomycin
Depression
-Continue Effexor 150 mg daily
#Obesity due to excess calorie consumption/immobility
-Low-fat diet recommended, 1800 ADA
DVT prophylaxis
Hold current Eliquis for upcoming surgery
Will give subcu heparin
Full code
--- NOTE | 2023-10-14 18:46 | W.PN.UPDATE ---
Update Note
Progress Note Update
This is an addendum to the H&P written by STIVEN Hirsch on 10/14/2023.
Patient seen examined independently with ELEVATOR RUNNER.
83-year-old male past medical history of spinal stenosis with functional paraplegia/wheelchair-bound, recent sepsis secondary to MRSA bacteremia secondary to right buttock wound currently on IV daptomycin until 10/15, history of DVT on Eliquis,
hyperlipidemia, hypertension, type 2 diabetes, diabetic neuropathy, depression, chronic anemia presenting for right inner thigh pain after fall. Hip x-ray shows right femoral neck fracture.
Hold Eliquis which was last taken this morning. Pain control. Ortho consulted.
Patient also noted to be febrile 100.3 in emergency room. This is likely due to right buttock wound which appears to be healing. Continue to monitor for fever. Check wound culture, blood cultures continue daptomycin.
Anemia workup pending although this appears to be chronic.
[2023-10-14 19:02] LABS: Iron 50 ug/dl (49-181)
[2023-10-14 19:15] LABS: Percent Saturation 16 % (20-50); Total Iron Binding Capacity 309 ug/dl (261-462)
[2023-10-14 19:32] VITALS: BP 145/83
[2023-10-14 19:55] LABS: Vitamin B12 850 pg/ml (239-931)
[2023-10-14 20:00] VITALS: BP 133/76
[2023-10-14 20:02] LABS: Urine Albumin Trace (Neg - Trace); Urine Bilirubin 1+ (Negative); Urine Character Clear (Clear); Urine Color Yellow; Urine Glucose Negative (Negative); Urine Ketone Negative (Negative); Urine Leukocyte 1+ (Negative); Urine Nitrite Negative (Negative); Urine Occult Blood Negative (Negative); Urine Urobilinogen Negative (Neg - 1+)
[2023-10-14 20:13] LABS: Urine Squamous Cell 16-20 /LPF (Few)
[2023-10-14 20:14] LABS: Urine Bacteria Few (Negative); Urine Red Blood Cell 0-2 /HPF (0-2)
--- NOTE | 2023-10-14 21:00 | PTCARENOTE ---
Received patient from ED into room 2137. Pt AAOx3, forgetful. Pt has open wound on R buttock. Pt states it is 'not a pressure injury' but cannot remember how he got it. Cleansed with saline, applied border foam. Rash also noted on B/L lower
extremities. Applied moisturizer. Significant pain in R hip when moving, but reports about a 4/10 when remaining still. Patient was oriented to the room, bed in lowest position, call elizabeth within reach.
[2023-10-14 21:04] VITALS: BP 129/46; BMI 32.2
[2023-10-14 21:44] LABS: Glucose - Point of Care 114 mg/dl (70-99)
[2023-10-14] MEDS: LOPRESSOR 50 MG PO (21:44)
[2023-10-14] MEDS: HEPARIN 5000 UNITS SC (21:44)
[2023-10-14] MEDS: DESENEX/MITRAZOL/ZEASORB 1 APPLIC TOPICAL (21:44)
[2023-10-14] MEDS: AMBIEN 10 MG PO (22:50)
[2023-10-14 23:18] VITALS: BP 136/71
--- NOTE | 2023-10-15 03:50 | DOWNTIME ---
There was a [employer] Lunchroom Aide Downtime on 10/15/2023 from 0100 to 10/15/2023 at 0337. Downtime documentation of patient's care, including medication administrations, has been reconciled in the electronic record per guidelines. Refer to the
patient's paper chart under the miscellaneous tab to see printed paper medication records and downtime forms.
[2023-10-15] MEDS: ROXICODONE 5 MG PO ×3 (05:35→17:47)
--- NOTE | 2023-10-15 07:55 | W.PN.HOSP.TC ---
Today's Communication/Plan
-
Blood cultures
Infectious disease consultation
Pain control
Hold Eliquis
Assessment / Plan
Assessment / Plan
83-year-old male with spinal stenosis and functional paraplegia wheelchair-bound presented after right inner thigh pain after a fall. He was transitioning to wheelchair from bed but landed on the floor. Patient recently completed IV daptomycin on
10/16/2023 for MRSA bacteremia secondary to right gluteal area wound and sepsis. Patient also also found to have a fever 100.3 in the ER.
Echo 10/02/2023-normal LV size. Systolic function. Mild concentric LVH. Ejection fraction 55%. Normal RV size and function. Mildly dilated LA. Moderate MR. Thickened arctic valve
CVS: S1-S2 normal, systolic murmur at apex
Chest: CTA B/L
Abdomen: Soft, NT / Bowel sounds present
Extremities: Chronic skin changes, mild redness both legs warm to touch
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
Gluteal ulcer no discharge, dry
Right leg externally rotated
# Right femoral neck fracture
Orthopedic consulted
Same leg as infection which was recently treated
Hold Eliquis
Will consult infectious disease
Repeat blood cultures ordered-follow
Holding surgery at least until Friday until blood cultures are negative and cleared by infectious disease.
This will also give an opportunity for Eliquis to be out of the system
# Right gluteal wound
Wound care consultation
Special mattress and wound care
# Diabetes-on Januvia 100 mg, metformin thousand twice daily-continue
Sliding scale coverage
# Chronic anemia
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
# Mitral regurgitation
# Hypertension-on hydrochlorothiazide, losartan 50 daily, Lopressor 50 twice daily
# Hyperlipidemia-statin
# Peripheral vascular disease
# Prostatic hypertrophy- May need to watch for post op Retention
# Thrombocytosis
# Diverticulosis
# Ambulatory [id number]
# Morbid obesity
# Depression-venlafaxine
# Insomnia-Ambien
# History of DVT more than 5 years ago-he is continued on Eliquis 5 twice daily as outpatient which will be held now.
# DVT prophylaxis-hold Eliquis SCDs.
# Full code
Discussed with orthopedics.
Discussed with nursing at bedside.
Asked patient who should be the motor vehicle or caravan salesperson. He wants to be the motor vehicle or caravan salesperson.
But also OK t talk to son.
updated.
Time spent 55 min
Anticipated Discharge: > 48 hours
Subjective/Interval History
-
Date of Service: October 15, 2023
Objective Data
-
Labs:
Laboratory Results
10/15/23
06:00
WBC Pending
Hgb Pending
Hct Pending
Plt Count Pending
Sodium Pending
Potassium Pending
Chloride Pending
Carbon Dioxide Pending
BUN Pending
Creatinine Pending
Glucose Pending
Calcium Pending
Vital Signs:
Vital Signs
Temp Pulse Resp BP Pulse Ox
98.6 F 75 20 136/71 98
10/14/23 23:18 10/14/23 23:18 10/14/23 23:18 10/14/23 23:18 10/15/23 00:58
I&O
10/14/23 10/15/23 10/16/23
06:59 06:59 06:59
Intake Total 480 / 480
Balance 480 / 480
[2023-10-15 08:00] LABS: Glucose - Point of Care 113 mg/dl (70-99)
[2023-10-15] MEDS: NOVOLOG FLEXPEN-LOW RESISTANCE SC ×3 (08:32→16:55)
[2023-10-15 08:42] VITALS: BP 145/85
[2023-10-15] MEDS: THERAGRAN 1 TABLET PO (09:27)
[2023-10-15] MEDS: EFFEXOR XR 150 MG PO (09:27)
[2023-10-15] MEDS: HEPARIN 5000 UNITS SC ×2 (09:28→20:26)
[2023-10-15] MEDS: COZAAR 50 MG PO (09:28)
[2023-10-15] MEDS: VITAMIN D3 (cholecalciferol) 50 MCG PO (09:28)
[2023-10-15] MEDS: LOPRESSOR 50 MG PO ×2 (09:28→20:26)
[2023-10-15] MEDS: METAMUCIL, KONSYL 1 PACKET PO (09:28)
[2023-10-15] MEDS: JANUVIA 100 MG PO (09:28)
[2023-10-15] MEDS: DESENEX/MITRAZOL/ZEASORB 1 APPLIC TOPICAL ×2 (09:29→20:26)
[2023-10-15] MEDS: ZYRTEC 10 MG PO (09:29)
[2023-10-15] MEDS: CUBICIN 20 MG IV (09:46)
--- NOTE | 2023-10-15 10:18 | CON.ORTHO ---
Consultation
-
Date/Time Consultation Requested: Oct 19
Date/Time Consultation Performed: Oct 19
Requesting Provider: Torrey
Performing Provider: Felipe for Chelle/Razia
Reason for Consultation: Right hip Fx
Consultation - Orthopedics
History
Dictation:[id number]
Was asked to see this very pleasant 83-year-old white male who sustained a fall from bed yesterday. He landed on his right side and was unable to get to his wheelchair. He is a functional paraplegic who is essentially wheelchair-bound. He has a
PMH of MRSA bacteremia found on admission to 26 Sep 2023 and has been receiving IV daptomycin scheduled through 16 October 2023. He also has a right buttocks wound which is currently healing well, spinal stenosis with neuropathy (below the knee),
chronic pedal edema, as mentioned wheelchair-bound, DM2, HTN, HLD, DVT on Eliquis (last dose Friday per patient and chart), insomnia, and depression. he has been admitted to the hospitalist service for further workup with ID consultation
placed. We have been requested in consultation with regards to his right hip fracture and to determine whether or not surgical correction is necessary and when
Allergies / Home Medications
Allergy/AdvReac Type Severity Reaction Status Date / Time
No Known Allergies Allergy Unverified 09/26/23 11:41
�Medication �Instructions �Recorded
acetaminophen 325 mg tablet 650 mg PO Q6HPRN PRN mild pain, 09/26/23
(Tylenol) general discomfort
apixaban 5 mg tablet (Eliquis) 5 mg PO BID Blood Clot 09/26/23
Prevention/Tx
atorvastatin 10 mg tablet (Lipitor) 10 mg PO HS High Cholesterol 09/26/23
bisacodyl 10 mg rectal suppository 10 mg LA DAILYPRN PRN if no bm 09/26/23
(Dulcolax (bisacodyl)) aftr mom
cetirizine 10 mg tablet (Zyrtec) 10 mg PO DAILY Allergies 09/26/23
dextromethorphan-guaifenesin 10 10 ml PO Q6HPRN PRN cough 09/26/23
mg-100 mg/5 mL oral syrup
hydrochlorothiazide 25 mg tablet 25 mg PO DAILY Blood Pressure 09/26/23
losartan 50 mg tablet 50 mg PO DAILY Blood Pressure 09/26/23
magnesium hydroxide 400 mg/5 mL 2,400 mg PO [id number] PRN if no bm 09/26/23
oral suspension (Milk of Magnle) on 3rd day
metformin 1,000 mg tablet 1,000 mg PO BID Diabetes 09/26/23
metoprolol tartrate 50 mg tablet 50 mg PO BID Blood Pressure 09/26/23
(Lopressor)
psyllium 1 packet PO DAILY Gastrointestinal 09/26/23
Issue
sitagliptin phosphate 100 mg 100 mg PO DAILY Diabetes 09/26/23
tablet (Januvia)
zolpidem 10 mg tablet 10 mg PO HS Sleep 09/26/23
DAPTOmycin [Cubicin] 1,000 mg As Directed mls/hr IV Q24H 10/03/23
cholecalciferol (vitamin D3) 25 50 mcg PO DAILY Supplement 10/14/23
mcg (1,000 unit) tablet (Vitamin
D3)
loperamide 2 mg capsule 2 mg PO Q6HPRN PRN diarrhea 10/14/23
miconazole nitrate 2 % topical 1 applic topical BID B/L axilla 10/14/23
powder (Antifungal (miconazole))
mineral oil (Mineral Oil Light 1 applic topical DAILY B/L legs 10/14/23
topical) and feet
therapeutic multivitamin 1 tab PO DAILY 10/14/23
venlafaxine 150 mg tablet,extended 150 mg PO DAILY 10/14/23
release 24 hr
Vital Signs / Lab Results
Temp Pulse Resp BP Pulse Ox
98.7 F 82 16 145/85 97
10/15/23 08:42 10/15/23 09:28 10/15/23 08:42 10/15/23 09:28 10/15/23 08:42
Assessment / Plan
PE: At bedrest. Right lower extremity a bit short and ER. Skin intact about the hip.There is a healing/granulating wound the size of the 50 cent piece over his right gluteal region. This is covered with a Band-Aid. No overt surrounding clinical
signs of infection. He has a fair amount of discomfort to palpation of the right hip. Positive logroll RLE. Deferred range of motion due to known fracture. Neuropathic changes below the knee. Palpable posterior tibial pulse. DNVI RLE
Diagnostics: Xrays reveal a right subcapital hip fracture
CT scan does not reveal any abnormal fluid collection in the right gluteal region
Impression: RIGHT subcapital hip fracture. Healing wound right buttock. Hx of MRSA bacteremia currently on IV Daptomycin
Plan: Discussed with our orthopedic team as well as attending hospitalist, Dr. Christianson. this clinical situation is a little complex. He is a functional paraplegic from spinal stenosis with distal to knee neuropathy, essentially wheelchair-bound.
He was recently admitted to and found to be MRSA bacteremic from a right gluteal wound. He was discharged with a PICC on IV daptomycin per ID. Course of antibiotics was scheduled through 16 October 2023. Clinically his right hip is painful. He
also takes Eliquis, last dose Friday. Given he is still being treated for MRSA bacteremia through tomorrow, 16 October 2023, we need to be assured that infection, first and foremost, is cleared from his system with negative blood cultures
post ABX treatment. ID has been consulted and we are awaiting their input. regarding the wound in his right gluteal region, it does appear to be granulating and healing well. CT does not reveal any collection here either. Fortunately it would
also be out of the surgical field with either approach to hip prosthesis placement. again, I did discuss with Dr. Christianson, in addition to our Orthopaedic team. The patient is in full understanding of his complicated situation here and is more than
amendable holding off on surgery until we deem it appropriate and safe to proceed. will await ID input and continue treatment per Dr. Christianson. obviously placement of hip prosthesis in a patient being treated for or actively septic is
contraindicated. Originally it was thought surgery tomorrow was a reasonable option, however I disagree. We will look to follow along at this time with a tentative plan for surgery toward the weekend, or possibly early next week
[2023-10-15 10:49] LABS: % Basophils 0.4 % (0-2); % Eosinophils 0.6 % (0-6); % Immature Granulocytes 0.6 % (0-0.5); % Lymphocytes 22.9 % (20.5-51.1); % Monocytes 8.1 % (1.7-9.3); % Neutrophils 67.4 % (42.2-75.2); Absolute Lymphocytes 1.1 10^3/uL (1.2-3.4); Absolute Monocytes 0.4 10^3/uL (0.1-0.6); Absolute Neutrophils 3.3 10^3/uL (1.4-6.5); Mean Corp Hgb Conc. 33.3 g/dL (33.0-37.0); Mean Corpuscular Hgb 31.5 pg (27.0-31.0); Mean Corpuscular Volume 94.4 fL (80.0-94.0); Mean Platelet Volume 10.4 fL (7.4-10.4); Nucleated Red Blood Cells % 0 % (-); Platelet Count 546 10^3/uL (130-400); Red Blood Cell Count 2.86 10^6/uL (4.70-6.10); Red Cell Dist. Width 17.8 % (11.5-14.5); White Blood Cell Count 4.8 10^3/uL (4.8-10.8)
[2023-10-15] MEDS: COLACE 100 MG PO ×2 (11:28→20:25)
[2023-10-15] MEDS: SENOKOT 17.1999999999999993 MG PO ×2 (11:28→20:26)
[2023-10-15 11:32] LABS: Blood Urea Nitrogen 17 mg/dl (9-20); Calcium 9.3 mg/dl (8.4-10.2); Carbon Dioxide 19 mmol/L (22-30); Chloride 107 mmol/L (98-107); Estimated Creatinine Clearance 82 ml/min; Glucose 118 mg/dl (70-99); Potassium 4.1 mmol/L (3.5-5.1); Sodium 138 mmol/L (135-145); eGFR > 60.00
[2023-10-15 11:33] LABS: Glucose - Point of Care 148 mg/dl (70-99)
--- NOTE | 2023-10-15 12:32 | CON.ID ---
Addendum entered and electronically signed by Caroline Woods MD 10/15/23 16:46:
appreciate notification by Dr Christianson that patient developed a fever this afternoon to 101.0
BP stable, HR normal
agree with blood cultures ordered second set
ua reflex to culture
CXR
covid ag
previous midline site without evidence of infection on my earlier exam
Original Note:
Consultation
-
Date/Time Consultation Requested: 10/15/23 8:30
Date/Time Consultation Performed: 10/15/23 12:35
Requesting Provider: Dr Christianson
Performing Provider: Dr Woods
Reason for Consultation: recent MRSA bacteremia - acute hip fracture
Chief Complaint / Past History
Chief Complaint
fall out of bed
History of Present Illness
Mr Whitlock is an 83 year old male with history of functional paraplegia, recent MRSA bacteremia, DM2 who presented here 10/13 after a fall out of bed, he landed on the floor on his right hip. Has known stage II wound on the right buttocks. Denied:
headache, sore throat, chills, chest pain, palpitations, shortness breath, cough, abdominal pain, nausea, vomiting, diarrhea, urinary symptoms.
He had a recent right buttock abscess 09/29/23 s/p I&D, wound culture with MRSA, he had nonsustained MRSA bacteremia secondary to the carbuncle. TTE and MOSES were negative for vegetation. He was planned to complete two weeks of daptomycin through
10/15.
Since arrival here tmax is 100.3, BP stable, wbc 6.0 now 4.8, hgb 9.0, plt 546, L shift is noted, eos are normal, cr 0.9, lactic acid 1.8, t bili .3, ast 38, alt 27, alk phos 91, UA without pyuria, Hip Xray: right subcapital hip fracture, blood
cultures x2 10 minutes apart no growth to date these were obtained on daptomycin. A culture of his wound with proteus and second GNR. He has been seen by orthopedics and they have commented that the hip wound is outside of the planned operative
field and requested ID comment on proving the mrsa bacteremia has cleared. 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
Past History
Additional Past Medical History:
spinal stenosis with neuropathy, chronic pedal edema ,wheelchair-bound, DM2, HTN, HLD, DVT on Eliquis, insomnia, HLD, depression,
Past Surgical History: Appendectomy
Allergy History:
No Known Allergies Allergy (Unverified 09/26/23 11:41)
Medications Reviewed: Yes
Social History
Tobacco: Non-Smoker
Alcohol: None
Drug: None
Family History
Family History: Not Pertinent
Review of Systems
Review of Systems
General: Negative Fever or Chills
All systems: All other systems were reviewed and were negative
Vital Signs
Temp Pulse Resp BP Pulse Ox
98.7 F 82 16 145/85 97
10/15/23 08:42 10/15/23 09:28 10/15/23 08:42 10/15/23 09:28 10/15/23 08:42
Physical Exam
Physical Exam
Constitutional: No Acute Distress
Cardiovascular: Regular Rate and S1/S2; Negative Murmur or Rub
Pulmonary: Clear and Symmetric; Negative Wheezes, Rales or Rhonchi
Gastrointestinal: Soft, Non Tender, Non Distended and Normal Bowel Sounds
Skin: Warm and Dry; Negative Rash or Jaundice
Wound: Other (linear gluteal wound without tunneling; no odor, no drainage, granulation tissue in the base)
Lines: PIV
previous midline site evaluated - no erythema, warmth, tenderness or drainage
Lab / Diagnostic Study Results
10/15/23 10:39
10/15/23 10:39
Abs Immat Gran (auto) 0.0 10^3/uL (0-0.05) 10/15/23 10:39
Absolute Neuts (auto) 3.3 10^3/uL (1.4-6.5) 10/15/23 10:39
Absolute Lymphs (auto) 1.1 10^3/uL (1.2-3.4) L 10/15/23 10:39
Absolute Monos (auto) 0.4 10^3/uL (0.1-0.6) 10/15/23 10:39
Absolute Basos (auto) 0.0 10^3/uL (0-0.2) 10/15/23 10:39
Immature Gran % 0.6 % (0-0.5) H 10/15/23 10:39
Neutrophils % 67.4 % (42.2-75.2) 10/15/23 10:39
Lymphocytes % 22.9 % (20.5-51.1) 10/15/23 10:39
Monocytes % 8.1 % (1.7-9.3) 10/15/23 10:39
Eosinophils % 0.6 % (0-6) 10/15/23 10:39
Basophils % 0.4 % (0-2) 10/15/23 10:39
Lactic Acid Cancelled 10/14/23 19:15
Ur Squamous Epith Cells 16-20 /LPF (Few) 10/14/23 15:10
Microbiology Results
Micro:
10/14/23 15:34 Wound Culture - Preliminary
Buttock Proteus mirabilis
Gram negative bacilli
Gram Stain - Preliminary
10/14/23 15:10 Urine Culture - Pending
Urine
10/14/23 15:19 Blood Culture - Pending
Blood/Venous
10/14/23 15:10 Blood Culture - Pending
Blood/Venous
Assessment / Plan
Recent Nonsustained MRSA bacteremia due to buttock abscess
Abscess resolved and wound healing
- blood cultures from 10/13 obtained while patient on daptomycin; final day of therapy is planned 10/15 (tomorrow)
- given history and current presentation, moving forward with surgery tomorrow is reasonable - note that this plan is balancing a number of risks. Waiting longer given the recent history of short lived S aureus bacteremia in order to 'prove'
clearance is one strategy but has the downside of increasing risks of progression of the wound itself, risk of complications of the hip fracture, acquisition of hospital acquired infections. In balance I believe the lowest overall risk is likely to
move forward with surgery and I have explained this to the patient; he asks several questions which I answered to the best of my ability. He understands that I cannot provide him a 'zero risk' scenario.
- continue daptomycin for planned course of through 10/15, if proceeds to surgery tomorrow would plan on adding cefazolin. Alternatively if surgery deferred, then perioperative antibiotics could be vancomycin and cefazolin.
- midline was removed on arrival - site without evidence of infection
- advise against use of steroids perioperatively and for the next 3 months post operatively
- chlorhexidine wash of patient within the 24 hours before the surgery
- intranasal mupirocin BID x 2 weeks
Gluteal Wound
- outside of operative field
- wound care consult
- no evidence of cellulitis - topical therapies sufficient
Care Review
Plan reviewed with: Physician (Dr Corbett and Dr Randle - timing of surgery)
--- NOTE | 2023-10-15 13:29 | CM ---
Reviewed the chart notes and spoke with the patient at the bedside and his spouse via telephone. Per spouse, plan is for the patient to return to [facility]. The patient resides at [facility]. The patient is wheelchair bound. The
patient will require surgical intervention for right hip fracture. Per ortho note, tentative plan for surgery toward the weekend, or possibly early next week. CM continues to be available to patient/family and is monitoring medical plan for needs
at discharge.
Plan: Discharge back to [facility] when medically stable. No precert required.
--- NOTE | 2023-10-15 15:22 | WOUNDNOTE ---
RIGHT BUTTOCK WOUN
--- NOTE | 2023-10-15 15:27 | WOUNDNOTE ---
[facility] RN note: Patient admitted with R buttock healing wound
See H&P for complete history. Meryl Jane
PMH: Obesity, HTN,NIDDM,DVT- On Eliquis, spinal stenosis with cervical & Lumbar Laminectomy, functional paraplegic, wheelchair bound.
Wound Location and type/assessment: Patient admitted with: R buttock healing wound s/p abscess. Patient had I&D of wound on 09/28. When compared with pictures from 09/30, wound is progressing toward healing. The proximal part of wound has a small
yellow necrotic area, the distal portion is granular with rolled edges. There is minimal drainage and no odor was noted.
Appetite: Good.
Pressure redistribution devices in place: Air mattress, keep on air mattress if transferred to floor. Pillow under calves.
Plan: Clean proximal and distal parts of wound with normal saline and cover with Xeroform and silicone foam. Change Q 2 days and PRN if loose or soiled. Will confirm orders with hospitalist and updated nurse Beverly. Updated care plan and will follow
as needed.
Note to case management of equipment requested for discharge: Air Mattress.
Recommend follow up at wound care center upon discharge.
[2023-10-15 15:30] VITALS: BP 125/76
[2023-10-15] MEDS: TYLENOL 650 MG PO ×2 (15:44→22:35)
[2023-10-15 16:52] LABS: Glucose - Point of Care 107 mg/dl (70-99)
[2023-10-15 17:48] LABS: COVID-19 Antigen Negative (Negative)
[2023-10-15 18:25] LABS: Urine Albumin Trace (Neg - Trace); Urine Bilirubin Negative (Negative); Urine Character Clear (Clear); Urine Color Yellow; Urine Glucose Negative (Negative); Urine Ketone Negative (Negative); Urine Leukocyte 1+ (Negative); Urine Nitrite Negative (Negative); Urine Occult Blood Negative (Negative); Urine Specific Gravity 1.015 (<1.030); Urine Urobilinogen Negative (Neg - 1+)
--- NOTE | 2023-10-15 18:37 | PTCARENOTE ---
MD made aware of oral temp of 101.0F at 1530, PRN tylenol administered per MD, COVID swab and urine sample for UA obtained, portable CXR ordered per MD. Per MD, no surgery in AM, patient's NPO order for midnight removed and cholesterol lowering diet
maintained.
[2023-10-15 18:41] LABS: Urine Bacteria Few (Negative); Urine Red Blood Cell 0-2 /HPF (0-2)
[2023-10-15 19:05] VITALS: BP 116/67
[2023-10-15] MEDS: BACTROBAN 2% OINTMENT 1 APPLIC NASAL (20:25)
[2023-10-15 21:08] LABS: Glucose - Point of Care 113 mg/dl (70-99)
[2023-10-15] MEDS: AMBIEN 10 MG PO (22:35)
[2023-10-15 23:20] VITALS: BP 134/78
[2023-10-16] MEDS: ROXICODONE 5 MG PO ×2 (01:46→20:08)
[2023-10-16] MEDS: TYLENOL 650 MG PO (06:17)
[2023-10-16 06:59] LABS: % Basophils 0.4 % (0-2); % Eosinophils 1.2 % (0-6); % Immature Granulocytes 0.8 % (0-0.5); % Lymphocytes 27.6 % (20.5-51.1); % Monocytes 10.8 % (1.7-9.3); % Neutrophils 59.2 % (42.2-75.2); Absolute Eosinophils 0.1 10^3/uL (0-0.7); Absolute Lymphocytes 1.3 10^3/uL (1.2-3.4); Absolute Monocytes 0.5 10^3/uL (0.1-0.6); Absolute Neutrophils 2.9 10^3/uL (1.4-6.5); Hematocrit 28.1 % (39.0-52.0); Hemoglobin 8.8 g/dL (13.0-18.0); Mean Corp Hgb Conc. 31.3 g/dL (33.0-37.0); Mean Corpuscular Hgb 30.9 pg (27.0-31.0); Mean Corpuscular Volume 98.6 fL (80.0-94.0); Nucleated Red Blood Cells % 0 % (-); Platelet Count 458 10^3/uL (130-400); Red Blood Cell Count 2.85 10^6/uL (4.70-6.10); Red Cell Dist. Width 17.7 % (11.5-14.5); White Blood Cell Count 4.8 10^3/uL (4.8-10.8)
[2023-10-16 07:20] LABS: Glucose - Point of Care 112 mg/dl (70-99)
[2023-10-16 07:30] VITALS: BP 134/74
--- NOTE | 2023-10-16 08:00 | W.PN.UPDATE ---
Update Note
Progress Note Update
Patient unfortunately has right hip femoral neck fracture which will require right hip hemiarthroplasty at some point. It looks as though he was going to be cleared yesterday but spiked fever of 101.0 �F. Surgery was put on hold for today. He is
afebrile at the moment and feels good. Surgical location was marked and consent for surgery/blood signed. Orthopedics will proceed with surgery when cleared by hospitalist/ID. Please alert Dr. Randle once cleared.
[2023-10-16] MEDS: NOVOLOG FLEXPEN-LOW RESISTANCE SC ×3 (08:31→16:43)
[2023-10-16 09:51] LABS: Blood Urea Nitrogen 16 mg/dl (9-20); Calcium 9.4 mg/dl (8.4-10.2); Carbon Dioxide 21 mmol/L (22-30); Chloride 106 mmol/L (98-107); Estimated Creatinine Clearance 82 ml/min; Glucose 100 mg/dl (70-99); Magnesium 1.9 mg/dl (1.6-2.3); Potassium 4.7 mmol/L (3.5-5.1); Sodium 136 mmol/L (135-145); eGFR > 60.00
[2023-10-16] MEDS: COLACE 100 MG PO ×2 (09:56→20:08)
[2023-10-16] MEDS: EFFEXOR XR 150 MG PO (09:56)
[2023-10-16] MEDS: COZAAR 50 MG PO (09:56)
[2023-10-16] MEDS: ZYRTEC 10 MG PO (09:57)
[2023-10-16] MEDS: THERAGRAN 1 TABLET PO (09:57)
[2023-10-16] MEDS: LOPRESSOR 50 MG PO ×2 (09:57→20:08)
[2023-10-16] MEDS: JANUVIA 100 MG PO (09:57)
[2023-10-16] MEDS: VITAMIN D3 (cholecalciferol) 50 MCG PO (09:57)
[2023-10-16] MEDS: SENOKOT 17.1999999999999993 MG PO ×2 (09:57→20:08)
[2023-10-16] MEDS: METAMUCIL, KONSYL 1 PACKET PO (09:57)
[2023-10-16] MEDS: DESENEX/MITRAZOL/ZEASORB 1 APPLIC TOPICAL ×2 (09:58→20:11)
[2023-10-16] MEDS: HEPARIN 5000 UNITS SC ×2 (09:58→20:08)
[2023-10-16] MEDS: BACTROBAN 2% OINTMENT 1 APPLIC NASAL ×2 (10:01→20:12)
[2023-10-16] MEDS: CUBICIN 20 MG IV (11:17)
[2023-10-16 11:50] LABS: Glucose - Point of Care 169 mg/dl (70-99)
--- NOTE | 2023-10-16 12:39 | W.PN.ID1 ---
Date of Service
Date of Service: October 16, 2023
Today's Communication
final day of daptomycin
redid history - remains nonfocal, workup of fever nonrevealing thus far
observe overnight
Assessment / Plan
Isolated Fever
- no focal symptoms
- UA, CXR, blood cultures and covid ag nonrevealing thus far; gluteal wound is healing and without evidence of cellulitis, the wound culture reflects colonization
- observe clinically overnight
Recent Nonsustained MRSA bacteremia due to buttock abscess
Abscess resolved and wound healing
- final day of daptomycin today
- advise against use of steroids perioperatively and for the next 3 months post operatively
- chlorhexidine wash of patient within the 24 hours before the surgery
- intranasal mupirocin BID x 2 weeks
Gluteal Wound
- outside of operative field
- wound care consult
- no evidence of cellulitis - topical therapies sufficient
- not the source of fever
Chief Complaint
-: Fever
Subjective / Review of Systems
no further fevers
bp stable
without leukocytosis
thrombocytosis further improved
no left shift
eos normal
cr 0.9
ua without pyuria
covid ag neg
cxr no infiltrates
blood cultures x2 no growth to date
Vital Signs / Physical Exam
Vital Signs
Vital Signs
Temp Pulse Resp BP Pulse Ox
98.5 F 67 18 134/74 94
10/16/23 07:30 10/16/23 09:57 10/16/23 07:30 10/16/23 09:57 10/16/23 07:30
Physical Exam
Constitutional: No Acute Distress
Cardiovascular: Regular Rate and S1/S2; Negative Murmur or Rub
Pulmonary: Clear and Symmetric; Negative Wheezes or Rales
Gastrointestinal: Soft, Non Tender, Non Distended and Normal Bowel Sounds
Skin: Warm and Dry; Negative Rash or Jaundice
Objective Data
Lab Data
Lab Results
10/16/23 06:22
10/16/23 06:22
Estimated Creat Clear 82 ml/min 10/16/23 06:22
Lactic Acid Cancelled 10/14/23 19:15
Total Bilirubin 1.3 mg/dl (0.2-1.3) 10/14/23 15:10
AST 38 U/L (17-59) 10/14/23 15:10
ALT 27 U/L (0-50) 10/14/23 15:10
Alkaline Phosphatase 91 U/L (38-126) 10/14/23 15:10
Most recent labs reviewed.
Micro Results:
10/14/23 15:34 Wound Culture - Preliminary
Buttock Proteus mirabilis
Pseudomonas aeruginosa
Gram negative bacilli
Marika albicans
Gram Stain - Preliminary
10/15/23 18:18 Urine Culture - Pending
Urine
10/15/23 17:02 Blood Culture - Pending
Blood/Venous
10/15/23 16:14 Blood Culture - Pending
Blood/Venous
10/14/23 15:19 Blood Culture - Preliminary
Blood/Venous No Growth in 24 hours- Final report to follow
10/14/23 15:10 Blood Culture - Preliminary
Blood/Venous No Growth in 24 hours- Final report to follow
10/14/23 15:10 Urine Culture - Final
Urine
[2023-10-16 14:05] LABS: Glucose - Point of Care 124 mg/dl (70-99)
--- NOTE | 2023-10-16 14:13 | CM ---
Reviewed the chart notes. Plan is for OR once cleared medically. CM continues to be available to patient/family and is monitoring medical plan for needs at discharge.
Plan: Discharge back to [facility] when medically stable.
--- NOTE | 2023-10-16 15:26 | W.PN.HOSP.TC ---
Today's Communication/Plan
-
Await final cultures prior to OR
Infectious disease consultation and orthopedic consultation appreciated
Finished daptomycin today
Assessment / Plan
Assessment / Plan
83-year-old male with spinal stenosis and functional paraplegia wheelchair-bound presented after right inner thigh pain after a fall. He was transitioning to wheelchair from bed but landed on the floor. Patient recently completed IV daptomycin on
10/16/2023 for MRSA bacteremia secondary to right gluteal area wound and sepsis. Patient also also found to have a fever 100.3 in the ER.
Echo 10/02/2023-normal LV size. Systolic function. Mild concentric LVH. Ejection fraction 55%. Normal RV size and function. Mildly dilated LA. Moderate MR. Thickened arctic valve
CVS: S1-S2 normal, systolic murmur at apex
Chest: CTA B/L
Abdomen: Soft, NT , Bowel sounds present
Extremities: Chronic skin changes, mild redness both legs warm to touch- better
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
Right leg externally rotated
# Right femoral neck fracture
Orthopedic consulted
Same leg as infection which was recently treated
Hold Eliquis
ID folowing
Repeat blood cultures ordered-follow
Holding surgery at least until Friday until blood cultures are negative and cleared by infectious disease.
This will also give an opportunity for Eliquis to be out of the system
# Fever of 101 on 10/15/2023-cultures are negative so far except for wound cultures
Urine analysis and chest x-ray unremarkable
Wait for final cultures
# Right gluteal wound
Wound care consultation
Special mattress and wound care
# Diabetes-on Januvia 100 mg, metformin thousand twice daily-continue
Sliding scale coverage
# Chronic anemia
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
# Mitral regurgitation
# Hypertension-on hydrochlorothiazide, losartan 50 daily, Lopressor 50 twice daily
# Hyperlipidemia-statin
# Peripheral vascular disease
# Prostatic hypertrophy- May need to watch for post op Retention
# Thrombocytosis
# Diverticulosis
# Ambulatory ynuxtbespaf-tyyunxlyee-ethnf
# Morbid obesity
# Depression-venlafaxine
# Insomnia-Ambien
# History of DVT more than 5 years ago-he is continued on Eliquis 5 twice daily as outpatient which will be held now.
# DVT prophylaxis-hold Eliquis SCDs.
# Full code
Discussed with nursing at bedside.
updated. 10/15/23
Anticipated Discharge: > 48 hours
Subjective/Interval History
-
Date of Service: October 16, 2023
Objective Data
-
Labs:
Laboratory Results
10/16/23
06:22
WBC 4.8
Hgb 8.8 L
Hct 28.1 L
Plt Count 458 H
Sodium 136
Potassium 4.7
Chloride 106
Carbon Dioxide 21 L
BUN 16
Creatinine 0.9
Glucose 100 H
Calcium 9.4
Vital Signs:
Vital Signs
Temp Pulse Resp BP Pulse Ox
98.5 F 67 18 134/74 94
10/16/23 07:30 10/16/23 09:57 10/16/23 07:30 10/16/23 09:57 10/16/23 07:30
I&O
10/15/23 10/16/23 10/17/23
06:59 06:59 06:59
Intake Total 480 / 480 1440 / 1440
Output Total 1000 / 1000
Balance 480 / 480 440 / 440
[2023-10-16 15:35] VITALS: BP 118/75
[2023-10-16] MEDS: DILAUDID 1 MG IV (15:50)
[2023-10-16 16:36] LABS: Glucose - Point of Care 107 mg/dl (70-99)
[2023-10-16 21:30] LABS: Glucose - Point of Care 173 mg/dl (70-99)
[2023-10-16] MEDS: AMBIEN 10 MG PO (22:33)
[2023-10-16 23:53] VITALS: BP 117/71
[2023-10-17] MEDS: DILAUDID 1 MG IV (01:19)
[2023-10-17] MEDS: ROXICODONE 5 MG PO ×3 (02:51→20:49)
[2023-10-17 07:22] LABS: % Basophils 0.4 % (0-2); % Eosinophils 2.4 % (0-6); % Immature Granulocytes 0.7 % (0-0.5); % Lymphocytes 33.3 % (20.5-51.1); % Monocytes 9.8 % (1.7-9.3); % Neutrophils 53.4 % (42.2-75.2); Absolute Eosinophils 0.1 10^3/uL (0-0.7); Absolute Lymphocytes 1.5 10^3/uL (1.2-3.4); Absolute Monocytes 0.5 10^3/uL (0.1-0.6); Absolute Neutrophils 2.4 10^3/uL (1.4-6.5); Hematocrit 27.3 % (39.0-52.0); Hemoglobin 8.6 g/dL (13.0-18.0); Mean Corp Hgb Conc. 31.5 g/dL (33.0-37.0); Mean Corpuscular Hgb 31.3 pg (27.0-31.0); Mean Corpuscular Volume 99.3 fL (80.0-94.0); Mean Platelet Volume 10.8 fL (7.4-10.4); Nucleated Red Blood Cells % 0 % (-); Platelet Count 452 10^3/uL (130-400); Red Blood Cell Count 2.75 10^6/uL (4.70-6.10); Red Cell Dist. Width 17.6 % (11.5-14.5); White Blood Cell Count 4.6 10^3/uL (4.8-10.8)
[2023-10-17 07:26] LABS: Glucose - Point of Care 130 mg/dl (70-99)
[2023-10-17 07:42] LABS: Blood Urea Nitrogen 20 mg/dl (9-20); Calcium 9.1 mg/dl (8.4-10.2); Carbon Dioxide 21 mmol/L (22-30); Chloride 105 mmol/L (98-107); Estimated Creatinine Clearance 82 ml/min; Glucose 114 mg/dl (70-99); Potassium 4.7 mmol/L (3.5-5.1); Sodium 135 mmol/L (135-145); eGFR > 60.00
[2023-10-17 07:45] VITALS: BP 127/74
[2023-10-17] MEDS: NOVOLOG FLEXPEN-LOW RESISTANCE SC ×2 (07:45→12:07)
--- NOTE | 2023-10-17 08:54 | W.PN.ID1 ---
Date of Service
Date of Service: October 17, 2023
Today's Communication
mild venous stasis dermaitis vs early cellulitis
started cefazolin
completed dapto
if another fever then blood cultures x2 while febrile
follow clinically
Assessment / Plan
Fever - resolving
- bilateral lower extremities, minimal excoriations, venous stasis dermatitis vs early cellulitis
- start cefazolin 2 gm IV q 8 hrs
- UA, CXR, blood cultures and covid ag nonrevealing thus far; gluteal wound is healing and without evidence of cellulitis, the wound culture reflects colonization
- if there is another T >100.3 then would send two blood cultures while febrile - conditional order placed
- observe clinically overnight
Recent Nonsustained MRSA bacteremia due to buttock abscess
Abscess resolved and wound healing
- completed two weeks of daptomycin 10/15
- advise against use of steroids perioperatively and for the next 3 months post operatively
- chlorhexidine wash of patient within the 24 hours before the surgery
- intranasal mupirocin BID x 2 weeks
Gluteal Wound
- outside of operative field; remains without evidence of infection at this time
- wound care consult
- no evidence of cellulitis - topical therapies sufficient
- not the source of fever
Chief Complaint
-: Fever
Subjective / Review of Systems
tmax 100.4 overnight
bp stable
mild leukopenia
thrombocytopenia continues to resolve
cr 0.9
urine culture finalized neg 40 K mixed nathalia
blood cultures x2 no growth at 24 hrs
procal negative
Vital Signs / Physical Exam
Vital Signs
Vital Signs
Temp Pulse Resp BP Pulse Ox
98.4 F 67 18 127/74 95
10/17/23 07:45 10/17/23 07:45 10/17/23 07:45 10/17/23 07:45 10/17/23 07:45
Physical Exam
Constitutional: No Acute Distress and Chronically Ill
Cardiovascular: Regular Rate and S1/S2; Negative Murmur or Rub
Pulmonary: Clear and Symmetric; Negative Wheezes or Rales
Gastrointestinal: Soft, Non Tender, Non Distended and Normal Bowel Sounds
Extremities: Other (minimal excoriation of the bilateral lower extremities, no warmth, possible venous stasis)
Skin: Warm and Dry; Negative Rash or Jaundice
Wound: Other (gluteal wound no erythema, warmth, tenderness or drainage, granulation tissue in the base)
Objective Data
Lab Data
Lab Results
10/17/23 06:47
10/17/23 06:47
Estimated Creat Clear 82 ml/min 10/17/23 06:47
Lactic Acid Cancelled 10/14/23 19:15
Total Bilirubin 1.3 mg/dl (0.2-1.3) 10/14/23 15:10
AST 38 U/L (17-59) 10/14/23 15:10
ALT 27 U/L (0-50) 10/14/23 15:10
Alkaline Phosphatase 91 U/L (38-126) 10/14/23 15:10
Most recent labs reviewed.
Micro Results:
10/14/23 15:34 Wound Culture - Preliminary
Buttock Proteus mirabilis
Pseudomonas aeruginosa
Gram negative bacilli
Marika albicans
Gram Stain - Preliminary
10/15/23 17:02 Blood Culture - Preliminary
Blood/Venous No Growth in 24 hours- Final report to follow
10/15/23 16:14 Blood Culture - Preliminary
Blood/Venous No Growth in 24 hours- Final report to follow
10/14/23 15:19 Blood Culture - Preliminary
Blood/Venous No Growth in 48 hours- Final report to follow
10/14/23 15:10 Blood Culture - Preliminary
Blood/Venous No Growth in 48 hours- Final report to follow
10/15/23 18:18 Urine Culture - Final
Urine
10/14/23 15:10 Urine Culture - Final
Urine
Care Review
Plan reviewed with: Physician (Dr Christianson)
--- NOTE | 2023-10-17 09:23 | W.PN.UPDATE ---
Update Note
Progress Note Update
83-year-old male plan for or yesterday however deferred due to febrile episode. Plan for right hip hemiarthroplasty for displaced femoral neck fracture. Tentative for OR pending medical clearance with with negative blood cultures as well as
medical optimization. Time and space availability for the OR will further be a factor for operative intervention. Orthopedic surgery will continue to follow for tentative clearance
[2023-10-17] MEDS: LOPRESSOR 50 MG PO ×2 (09:38→20:36)
[2023-10-17] MEDS: THERAGRAN 1 TABLET PO (09:38)
[2023-10-17] MEDS: METAMUCIL, KONSYL 1 PACKET PO (09:38)
[2023-10-17] MEDS: JANUVIA 100 MG PO (09:39)
[2023-10-17] MEDS: EFFEXOR XR 150 MG PO (09:39)
[2023-10-17] MEDS: COZAAR 50 MG PO (09:39)
[2023-10-17] MEDS: COLACE 100 MG PO ×2 (09:39→20:33)
[2023-10-17] MEDS: VITAMIN D3 (cholecalciferol) 50 MCG PO (09:39)
[2023-10-17] MEDS: ZYRTEC 10 MG PO (09:39)
[2023-10-17] MEDS: BACTROBAN 2% OINTMENT 1 APPLIC NASAL ×2 (09:40→20:33)
[2023-10-17] MEDS: SENOKOT 17.1999999999999993 MG PO ×2 (09:40→20:33)
[2023-10-17] MEDS: HEPARIN 5000 UNITS SC ×2 (09:40→20:35)
[2023-10-17] MEDS: DESENEX/MITRAZOL/ZEASORB 1 APPLIC TOPICAL ×2 (09:41→20:35)
[2023-10-17 10:22] LABS: Procalcitonin < 0.05 ng/ml (0.0-0.25)
[2023-10-17 12:01] LABS: Glucose - Point of Care 136 mg/dl (70-99)
--- NOTE | 2023-10-17 13:35 | W.PN.HOSP.TC ---
Today's Communication/Plan
-
OR when Final CX are neg and infection ruled out
Assessment / Plan
Assessment / Plan
83-year-old male with spinal stenosis and functional paraplegia wheelchair-bound presented after right inner thigh pain after a fall. He was transitioning to wheelchair from bed but landed on the floor. Patient recently completed IV daptomycin on
10/16/2023 for MRSA bacteremia secondary to right gluteal area wound and sepsis. Patient also also found to have a fever 100.3 in the ER.
Echo 10/02/2023-normal LV size. Systolic function. Mild concentric LVH. Ejection fraction 55%. Normal RV size and function. Mildly dilated LA. Moderate MR. Thickened arctic valve
CVS: S1-S2 normal, systolic murmur at apex
Chest: CTA B/L
Abdomen: Soft, NT , Bowel sounds present
Extremities: Chronic skin changes, mild redness both legs warm to touch- better
INSURANCE VERIFY REP: Paraparesis,
Right leg externally rotated
# Right femoral neck fracture
Orthopedic consulted
Same leg as infection which was recently treated
Hold Eliquis
ID folowing
Repeat blood cultures ordered-follow
Holding surgery at least until Friday until blood cultures are negative and cleared by infectious disease.
This will also give an opportunity for Eliquis to be out of the system
# Fever of 101 on 10/15/2023-cultures are negative so far except for wound cultures
Urine analysis and chest x-ray unremarkable
Wait for final cultures
# Right gluteal wound
Wound care consultation
Special mattress and wound care
# Diabetes-on Januvia 100 mg, metformin thousand twice daily-continue
Sliding scale coverage
# Chronic anemia
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
# Mitral regurgitation
# Hypertension-on hydrochlorothiazide, losartan 50 daily, Lopressor 50 twice daily
# Hyperlipidemia-statin
# Peripheral vascular disease
# Prostatic hypertrophy- May need to watch for post op Retention
# Thrombocytosis
# Diverticulosis
# Ambulatory ywszsthiynx-wickgwyyym-ggrdl
# Morbid obesity
# Depression-venlafaxine
# Insomnia-Ambien
# History of DVT more than 5 years ago-he is continued on Eliquis 5 twice daily as outpatient which will be held now.
# DVT prophylaxis-hold Eliquis SCDs. Give a dose of Lovenox now
# Full code
Discussed with nursing
D/W ID
Anticipated Discharge: > 48 hours
Subjective/Interval History
-
Date of Service: October 17, 2023
Objective Data
-
Labs:
Laboratory Results
10/17/23
06:47
WBC 4.6 L
Hgb 8.6 L
Hct 27.3 L
Plt Count 452 H
Sodium 135
Potassium 4.7
Chloride 105
Carbon Dioxide 21 L
BUN 20
Creatinine 0.9
Glucose 114 H
Calcium 9.1
Vital Signs:
Vital Signs
Temp Pulse Resp BP Pulse Ox
98.4 F 67 18 127/74 95
10/17/23 07:45 10/17/23 09:39 10/17/23 07:45 10/17/23 09:39 10/17/23 07:45
I&O
10/16/23 10/17/23 10/18/23
06:59 06:59 06:59
Intake Total 1440 / 1440 1020 / 1020
Output Total 1000 / 1000 1325 / 1325
Balance 440 / 440 -305 / -305
[2023-10-17] MEDS: ANCEF 10 IV ×2 (14:28→22:53)
--- NOTE | 2023-10-17 14:29 | CM ---
Reviewed the chart notes. Plan is for OR once cleared medically. CM continues to be available to patient/family and is monitoring medical plan for needs at discharge.
Plan: Discharge back to [facility] when medically stable.
[2023-10-17 15:40] VITALS: BP 108/61
[2023-10-17] MEDS: TYLENOL 650 MG PO (17:05)
[2023-10-17 17:40] LABS: Glucose - Point of Care 177 mg/dl (70-99)
[2023-10-17] MEDS: NOVOLOG FLEXPEN-LOW RESISTANCE 1 UNITS SC (18:16)
[2023-10-17 21:46] LABS: Glucose - Point of Care 168 mg/dl (70-99)
[2023-10-17] MEDS: AMBIEN 10 MG PO (22:53)
[2023-10-17 23:14] VITALS: BP 124/78
[2023-10-18] MEDS: ANCEF 10 IV (06:01)
[2023-10-18 07:30] VITALS: BP 127/82
[2023-10-18 08:05] LABS: Glucose - Point of Care 112 mg/dl (70-99)
[2023-10-18] MEDS: NOVOLOG FLEXPEN-LOW RESISTANCE SC (08:06)
[2023-10-18] MEDS: COLACE 100 MG PO (08:51)
[2023-10-18] MEDS: LOPRESSOR 50 MG PO ×2 (08:51→20:14)
[2023-10-18] MEDS: VITAMIN D3 (cholecalciferol) 50 MCG PO (08:51)
[2023-10-18] MEDS: THERAGRAN 1 TABLET PO (08:51)
[2023-10-18] MEDS: EFFEXOR XR 150 MG PO (08:51)
[2023-10-18] MEDS: ZYRTEC 10 MG PO (08:51)
[2023-10-18] MEDS: SENOKOT 17.1999999999999993 MG PO (08:51)
[2023-10-18] MEDS: JANUVIA 100 MG PO (08:51)
[2023-10-18] MEDS: METAMUCIL, KONSYL 1 PACKET PO (08:51)
[2023-10-18] MEDS: HEPARIN 5000 UNITS SC (08:52)
[2023-10-18] MEDS: COZAAR 50 MG PO (08:52)
[2023-10-18] MEDS: DESENEX/MITRAZOL/ZEASORB 1 APPLIC TOPICAL ×2 (08:53→20:13)
[2023-10-18] MEDS: BACTROBAN 2% OINTMENT 1 APPLIC NASAL ×2 (08:53→20:13)
--- NOTE | 2023-10-18 09:33 | W.PN.HOSP.TC ---
Today's Communication/Plan
-
Lovenox weight based till surgery
Repeat cultures off of AB
Bowel regimen.
Assessment / Plan
Assessment / Plan
83-year-old male with spinal stenosis and functional paraplegia wheelchair-bound presented after right inner thigh pain after a fall. He was transitioning to wheelchair from bed but landed on the floor. Patient recently completed IV daptomycin on
10/16/2023 for MRSA bacteremia secondary to right gluteal area wound and sepsis. Patient also also found to have a fever 100.3 in the ER.
Echo 10/02/2023-normal LV size. Systolic function. Mild concentric LVH. Ejection fraction 55%. Normal RV size and function. Mildly dilated LA. Moderate MR. Thickened arctic valve
CVS: S1-S2 normal, systolic murmur at apex
Chest: CTA B/L
Abdomen: Soft, NT , Bowel sounds present
Extremities: no edema
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
Right leg externally rotated
# Right femoral neck fracture
Orthopedic consulted
Same leg as infection which was recently treated
Holding Eliquis
Will do weight based Lovenox till surgery
ID following
Repeat blood cultures neg
Tentative surgery date Friday
# Fever of 101 on 10/15/2023 and 10/16/23-cultures are negative so far except for wound cultures
Urine analysis and chest x-ray unremarkable
Awaiting cultures off of AB
# Right gluteal wound
Wound care
Special mattress and wound care
# Diabetes-on Januvia 100 mg, metformin thousand twice daily-continue
Sliding scale coverage
# Chronic anemia
# Constipation-Bowel regimen
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
# Mitral regurgitation
# Hypertension-on hydrochlorothiazide, losartan 50 daily, Lopressor 50 twice daily
# Hyperlipidemia-statin
# Peripheral vascular disease
# Prostatic hypertrophy- May need to watch for post op Retention
# Thrombocytosis
# Diverticulosis
# Ambulatory xnhxsjjupyh-zbhnxdzynd-ekfiy
# Morbid obesity
# Depression-venlafaxine
# Insomnia-Ambien
# History of DVT more than 5 years ago-he is continued on Eliquis 5 twice daily as outpatient which will be held now.
# DVT prophylaxis-hold Eliquis SCDs. Lovenox
# Full code
Discussed with nursing
D/W Ortho
Spoke to and updated. Re tentative date for surgery and plans. All questions answered. 10-18-23
Anticipated Discharge: > 48 hours
Subjective/Interval History
-
Date of Service: October 18, 2023
Objective Data
-
Vital Signs:
Vital Signs
Temp Pulse Resp BP Pulse Ox
98.2 F 70 18 127/82 95
10/18/23 07:30 10/18/23 08:52 10/18/23 07:30 10/18/23 08:52 10/18/23 07:30
I&O
10/17/23 10/18/23 10/19/23
06:59 06:59 06:59
Intake Total 1020 / 1020 900 / 900
Output Total 1325 / 1325 800 / 800
Balance -305 / -305 100 / 100
[2023-10-18] MEDS: CITROMA 300 ML PO (10:50)
[2023-10-18] MEDS: DULCOLAX 10 MG RECTAL (10:50)
[2023-10-18] MEDS: LOVENOX 100 MG SC ×2 (10:50→21:58)
--- NOTE | 2023-10-18 11:15 | W.PN.UPDATE ---
Update Note
Progress Note Update
Patient with Right hip fracture needing prosthesis. Patient just finishing treatment for MRSA bacteremia from September [address] Christianson and consultants. Would recommend ABX free with 2 negative blood Cx confirming patient is
infection free before proceeding with surgery (?Friday via [facility]). Also discussed D/c [facility] 48 hours pre-op. Will continue to follow. Patient to remain at bedrest. Eliquis being held. Ortho will continue to follow.
--- NOTE | 2023-10-18 12:20 | W.PN.ID1 ---
Date of Service
Date of Service: October 18, 2023
Today's Communication
legs markedly improved -most likely venous stasis
stopped cefazolin
follow clinically
Assessment / Plan
Fever - resolved
Most likely Venous stasis dermatitis
- markedly improved LE overnight
- stopped cefazolin
- follow clinically
Recent Nonsustained MRSA bacteremia due to buttock abscess
Abscess resolved and wound healing
- completed two weeks of daptomycin 10/15
- advise against use of steroids perioperatively and for the next 3 months post operatively
- chlorhexidine wash of patient within the 24 hours before the surgery
- intranasal mupirocin BID x 2 weeks
Gluteal Wound
- outside of operative field; remains without evidence of infection at this time
- wound care consult
- no evidence of cellulitis - topical therapies sufficient
- not the source of fever
Chief Complaint
-: Fever
Subjective / Review of Systems
no further fevers
bp stable
10/14 blood cultures no growth to date
LE rash much improved
in good spirits
Vital Signs / Physical Exam
Vital Signs
Vital Signs
Temp Pulse Resp BP Pulse Ox
98.2 F 70 18 127/82 95
10/18/23 07:30 10/18/23 08:52 10/18/23 07:30 10/18/23 08:52 10/18/23 07:30
Physical Exam
Constitutional: No Acute Distress
Cardiovascular: Regular Rate and S1/S2; Negative Murmur or Rub
Pulmonary: Clear and Symmetric; Negative Wheezes or Rales
Gastrointestinal: Soft, Non Tender, Non Distended and Normal Bowel Sounds
Skin: Warm and Dry; Negative Rash (dry skin noted, erythema essentially resolved - appears to be at his baseline) or Jaundice
Objective Data
Lab Data
Lab Results
10/17/23 06:47
10/17/23 06:47
Estimated Creat Clear 82 ml/min 10/17/23 06:47
Lactic Acid Cancelled 10/14/23 19:15
Total Bilirubin 1.3 mg/dl (0.2-1.3) 10/14/23 15:10
AST 38 U/L (17-59) 10/14/23 15:10
ALT 27 U/L (0-50) 10/14/23 15:10
Alkaline Phosphatase 91 U/L (38-126) 10/14/23 15:10
Most recent labs reviewed.
Micro Results:
10/18/23 10:24 Blood Culture - Pending
Blood/Venous
10/15/23 17:02 Blood Culture - Preliminary
Blood/Venous No Growth in 48 hours- Final report to follow
10/15/23 16:14 Blood Culture - Preliminary
Blood/Venous No Growth in 48 hours- Final report to follow
10/14/23 15:19 Blood Culture - Preliminary
Blood/Venous No Growth in 72 hours- Final report to follow
10/14/23 15:10 Blood Culture - Preliminary
Blood/Venous No Growth in 72 hours- Final report to follow
10/14/23 15:34 Wound Culture - Final
Buttock Proteus mirabilis
Pseudomonas aeruginosa
Klebsiella pneumoniae
Marika albicans
Gram Stain - Final
10/15/23 18:18 Urine Culture - Final
Urine
10/14/23 15:10 Urine Culture - Final
Urine
[2023-10-18 13:18] LABS: Glucose - Point of Care 186 mg/dl (70-99)
[2023-10-18] MEDS: NOVOLOG FLEXPEN-LOW RESISTANCE 1 UNITS SC ×2 (15:19→18:12)
[2023-10-18] MEDS: ROXICODONE 5 MG PO (15:20)
[2023-10-18 15:55] VITALS: BP 141/82
[2023-10-18 18:11] LABS: Glucose - Point of Care 182 mg/dl (70-99)
[2023-10-18] MEDS: SENOKOT PO (20:08)
[2023-10-18] MEDS: COLACE PO (20:09)
[2023-10-18 21:20] LABS: Glucose - Point of Care 192 mg/dl (70-99)
[2023-10-18] MEDS: AMBIEN 10 MG PO (21:59)
[2023-10-18 23:30] VITALS: BP 111/64
[2023-10-19] MEDS: ROXICODONE 5 MG PO ×3 (01:04→23:29)
--- NOTE | 2023-10-19 06:10 | W.PN.HOSP.TC ---
Today's Communication/Plan
-
follow cultures, monitor off abx
Januvia placed on hold as per ortho recc's
cont sliding scale, glycemic control
pain control
bedrest
Assessment / Plan
Assessment / Plan
Physical Exam
General: No acute distress appears comfortable at this time
CVS: S1-S2 normal, systolic murmur at apex
Chest: CTA B/L
Abdomen: Soft, NT , Bowel sounds present
Extremities: no edema Right leg externally rotated
HOSEMAN: AOx3
Psych: calm
83-year-old male with spinal stenosis and functional paraplegia wheelchair-bound presented after right inner thigh pain after a fall. He was transitioning to wheelchair from bed but landed on the floor. Patient recently completed IV daptomycin on
10/16/2023 for MRSA bacteremia secondary to right gluteal area wound and sepsis. Patient also also found to have a fever 100.3 in the ER.
Echo 10/02/2023-normal LV size. Systolic function. Mild concentric LVH. Ejection fraction 55%. Normal RV size and function. Mildly dilated LA. Moderate MR. Thickened arctic valve
# Right femoral neck fracture
Orthopedic consulted
Same leg as infection which was recently treated
Holding Eliquis
On weight based Lovenox till surgery
ID eval appreciated
Repeat blood cultures neg
Tentative surgery date Friday
# Fever of 101 on 10/15/2023 and 10/16/23-cultures are negative so far except for wound cultures
Urine analysis and chest x-ray unremarkable
abx completed monitoring off
blood cx's so far no growth to date
# Right gluteal wound
Wound care
Special mattress and wound care
# Diabetes-on Januvia 100 mg, metformin thousand twice daily at home
Sliding scale coverage
Januvia placed on hold 48hr prior to hemiarthroplasty as per Ortho recc's
# Chronic anemia
# Constipation-Bowel regimen
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
# Mitral regurgitation
# Hypertension-on hydrochlorothiazide, losartan 50 daily, Lopressor 50 twice daily
# Hyperlipidemia-statin
# Peripheral vascular disease
# Prostatic hypertrophy- Bladder scan prn
# Thrombocytosis
# Diverticulosis
# Ambulatory [id number]-cnoidpqghj-dilsb
# Morbid obesity
# Depression-venlafaxine
# Insomnia-Ambien
# History of DVT more than 5 years ago-he is continued on Eliquis 5 twice daily as outpatient on hold for now as above
# DVT prophylaxis-Lovenox
# Full code
I spent a total of 50 minutes with the patient or on the floor. More than 50% of this time involved counseling and coordination of care.
Anticipated Discharge: > 48 hours
Subjective/Interval History
-
Date of Service: October 19, 2023
No acute distress resting comfortably in bed. Denies new acute issues at this time. Reports pain well controlled with current regimen.
Objective Data
-
Labs:
Laboratory Results
10/19/23
06:00
WBC Pending
Hgb Pending
Hct Pending
Plt Count Pending
Sodium Pending
Potassium Pending
Chloride Pending
Carbon Dioxide Pending
BUN Pending
Creatinine Pending
Glucose Pending
Calcium Pending
Vital Signs:
Vital Signs
Temp Pulse Resp BP Pulse Ox
97.7 F 73 20 111/64 98
10/18/23 23:30 10/18/23 23:30 10/18/23 23:30 10/18/23 23:30 10/18/23 23:30
I&O
10/17/23 10/18/23 10/19/23
06:59 06:59 06:59
Intake Total 1020 / 1020 900 / 900 1200 / 1200
Output Total 1325 / 1325 800 / 800 800 / 800
Balance -305 / -305 100 / 100 400 / 400
[2023-10-19 08:00] VITALS: BP 118/74
--- NOTE | 2023-10-19 08:00 | PTOTSP ---
Please reconsult for OT eval after surgery.
[2023-10-19 08:41] LABS: Hematocrit 25.9 % (39.0-52.0); Hemoglobin 8.6 g/dL (13.0-18.0); Mean Corp Hgb Conc. 33.2 g/dL (33.0-37.0); Mean Corpuscular Hgb 31.4 pg (27.0-31.0); Mean Corpuscular Volume 94.5 fL (80.0-94.0); Mean Platelet Volume 11.1 fL (7.4-10.4); Platelet Count 493 10^3/uL (130-400); Red Blood Cell Count 2.74 10^6/uL (4.70-6.10); Red Cell Dist. Width 17.7 % (11.5-14.5); White Blood Cell Count 4.8 10^3/uL (4.8-10.8)
[2023-10-19 08:45] LABS: Blood Urea Nitrogen 25 mg/dl (9-20); Calcium 9.6 mg/dl (8.4-10.2); Carbon Dioxide 21 mmol/L (22-30); Chloride 105 mmol/L (98-107); Estimated Creatinine Clearance 92 ml/min; Glucose 105 mg/dl (70-99); Magnesium 2.3 mg/dl (1.6-2.3); Potassium 4.8 mmol/L (3.5-5.1); Sodium 133 mmol/L (135-145); eGFR > 60.00
[2023-10-19] MEDS: COZAAR 50 MG PO (09:18)
[2023-10-19] MEDS: METAMUCIL, KONSYL 1 PACKET PO (09:18)
[2023-10-19] MEDS: LOPRESSOR 50 MG PO ×2 (09:22→20:40)
[2023-10-19] MEDS: COLACE 100 MG PO (09:22)
[2023-10-19] MEDS: THERAGRAN 1 TABLET PO (09:22)
[2023-10-19] MEDS: VITAMIN D3 (cholecalciferol) 50 MCG PO (09:22)
[2023-10-19] MEDS: SENOKOT 17.1999999999999993 MG PO (09:22)
[2023-10-19] MEDS: EFFEXOR XR 150 MG PO (09:22)
[2023-10-19] MEDS: ZYRTEC 10 MG PO (09:23)
[2023-10-19] MEDS: JANUVIA 100 MG PO (09:23)
[2023-10-19] MEDS: LOVENOX 100 MG SC ×2 (09:23→23:15)
[2023-10-19] MEDS: DESENEX/MITRAZOL/ZEASORB 1 APPLIC TOPICAL ×2 (09:29→20:39)
[2023-10-19] MEDS: BACTROBAN 2% OINTMENT 1 APPLIC NASAL ×2 (09:29→20:38)
[2023-10-19 09:31] LABS: Glucose - Point of Care 102 mg/dl (70-99)
[2023-10-19] MEDS: NOVOLOG FLEXPEN-LOW RESISTANCE SC (09:32)
--- NOTE | 2023-10-19 10:28 | W.PN.UPDATE ---
Update Note
Progress Note Update
Patient resting at the time of rounds. Did not respond to verbal stim, therefore I DND. Currently off ABX. Appreciate the primary team and consultants. Blood cultures from yesterday pending. Patient with Right hip fracture needing prosthesis.
Patient just finishing treatment for MRSA bacteremia from September 18 admission. Would recommend ABX free with 2 negative blood Cx confirming patient is infection free before proceeding with surgery (?Friday via [facility]). Also discussed D/c [facility]
48 hours pre-op. Will continue to follow. Patient to remain at bedrest. Eliquis being held. Last dose of Lovenox needs to be the night before planned surgery. Ortho will continue to follow.
--- NOTE | 2023-10-19 12:51 | W.PN.UPDATE ---
Update Note
Progress Note Update
Patient for RIGHT hip hemiarthroplasty via Dr. Corbett on Friday. Case posted with the RN supervisor painting shipyard. This is assuming we have negative blood Cx off ABX. Surgical and blood consents have been signed and placed on the patient's chart.
Operative site has been marked. T&S requested for Friday. ABX and irrigation products travel money advisor. NPO order placed for Fri. Please hold januvia 48 hours pre-op.
[2023-10-19 12:52] LABS: Glucose - Point of Care 171 mg/dl (70-99)
[2023-10-19] MEDS: NOVOLOG FLEXPEN-LOW RESISTANCE 1 UNITS SC ×2 (12:59→17:36)
[2023-10-19 15:30] VITALS: BP 109/62
[2023-10-19 16:30] VITALS: BP 109/62
[2023-10-19 16:41] LABS: Glucose - Point of Care 188 mg/dl (70-99)
[2023-10-19] MEDS: COLACE PO (20:39)
[2023-10-19] MEDS: SENOKOT PO (20:40)
[2023-10-19 20:46] VITALS: BP 123/69
[2023-10-19 21:21] LABS: Glucose - Point of Care 153 mg/dl (70-99)
[2023-10-19] MEDS: AMBIEN 10 MG PO (23:15)
[2023-10-19 23:23] VITALS: BP 124/74
--- NOTE | 2023-10-20 06:42 | PTCARENOTE ---
pt bladder wqnb=[id number]. pt refused to be straight cath. informed COLLEGE AND CAREER COUNSELOR Rosa Valente - obtained order for flomax.will reassess after medication.
[2023-10-20 06:52] LABS: Hematocrit 26.2 % (39.0-52.0); Hemoglobin 8.5 g/dL (13.0-18.0); Mean Corp Hgb Conc. 32.4 g/dL (33.0-37.0); Mean Corpuscular Hgb 30.8 pg (27.0-31.0); Mean Corpuscular Volume 94.9 fL (80.0-94.0); Mean Platelet Volume 10.9 fL (7.4-10.4); Platelet Count 511 10^3/uL (130-400); Red Blood Cell Count 2.76 10^6/uL (4.70-6.10); Red Cell Dist. Width 17.5 % (11.5-14.5); White Blood Cell Count 4.8 10^3/uL (4.8-10.8)
[2023-10-20] MEDS: FLOMAX 0.400000000000000022 MG PO ×2 (07:11→23:12)
[2023-10-20 07:20] VITALS: BP 136/68
[2023-10-20 07:20] LABS: Blood Urea Nitrogen 32 mg/dl (9-20); Calcium 9.7 mg/dl (8.4-10.2); Carbon Dioxide 21 mmol/L (22-30); Chloride 103 mmol/L (98-107); Estimated Creatinine Clearance 92 ml/min; Glucose 113 mg/dl (70-99); Magnesium 2.4 mg/dl (1.6-2.3); Phosphorus 4.3 mg/dl (2.5-4.5); Sodium 135 mmol/L (135-145); eGFR > 60.00
--- NOTE | 2023-10-20 07:51 | W.PN.UPDATE ---
Update Note
Progress Note Update
83-year-old male for OR [address] Corbett for right hip hemiarthroplasty for displaced femoral neck fracture.
-Continue to monitor for negative blood culture
-Consents on file
-Laterality signed
-Type and screen ordered as well as antibiotic and irrigation for OR
-N.p.o. OR Friday
-Hold Januvia 48 hours preop
[2023-10-20 08:18] VITALS: BP 136/68
[2023-10-20 08:20] LABS: Glucose - Point of Care 121 mg/dl (70-99)
[2023-10-20] MEDS: SENOKOT 17.1999999999999993 MG PO (09:29)
[2023-10-20] MEDS: NOVOLOG FLEXPEN-LOW RESISTANCE SC (09:29)
[2023-10-20] MEDS: LOPRESSOR 50 MG PO (09:30)
[2023-10-20] MEDS: COLACE 100 MG PO (09:30)
[2023-10-20] MEDS: VITAMIN D3 (cholecalciferol) 50 MCG PO (09:30)
[2023-10-20] MEDS: THERAGRAN 1 TABLET PO (09:30)
[2023-10-20] MEDS: COZAAR 50 MG PO (09:30)
[2023-10-20] MEDS: METAMUCIL, KONSYL 1 PACKET PO (09:31)
[2023-10-20] MEDS: EFFEXOR XR 150 MG PO (09:31)
[2023-10-20] MEDS: ZYRTEC 10 MG PO (09:31)
[2023-10-20] MEDS: DESENEX/MITRAZOL/ZEASORB 1 APPLIC TOPICAL ×2 (09:37→20:34)
[2023-10-20] MEDS: BACTROBAN 2% OINTMENT 1 APPLIC NASAL ×2 (09:38→20:31)
[2023-10-20] MEDS: ROXICODONE 5 MG PO ×3 (10:36→20:32)
[2023-10-20] MEDS: LOVENOX 100 MG SC ×2 (10:37→23:12)
--- NOTE | 2023-10-20 11:01 | W.PN.HOSP.TC ---
Today's Communication/Plan
-
see A/P
Assessment / Plan
Assessment / Plan
Physical Exam
General: No acute distress appears comfortable at this time
CVS: S1-S2 normal, systolic murmur at apex
Chest: CTA B/L
Abdomen: Soft, NT , Bowel sounds present
Extremities: no edema Right leg externally rotated
COMPONENTS ENGINEER: AOx3
Psych: calm
HPI: 83-year-old male with spinal stenosis and functional paraplegia wheelchair-bound presented after right inner thigh pain after a fall. He was transitioning to wheelchair from bed but landed on the floor. Patient recently completed IV daptomycin
on 10/16/2023 for MRSA bacteremia secondary to right gluteal area wound and sepsis. Patient also also found to have a fever 100.3 in the ER.
Echo 10/02/2023-normal LV size. Systolic function. Mild concentric LVH. Ejection fraction 55%. Normal RV size and function. Mildly dilated LA. Moderate MR. Thickened arctic valve
A/P:
# Right femoral neck fracture
Same leg as infection which was recently treated
Orthopedic consulted, plan for right hip hemiarthroplasty 10/[address] Corbett
Holding Eliquis, cont weight based Lovenox (bridging) till surgery
ID eval appreciated, stopped antibiotic, felt most likely Venous stasis dermatitis
Repeat blood cultures neg
# Fever of 101 on 10/15/2023 and 10/16/23
cultures are negative so far except for wound cultures
Urine analysis and chest x-ray unremarkable
Completed Abx
# Right gluteal wound
Wound care
Special mattress and wound care
# Diabetes
on Januvia 100 mg, metformin thousand twice daily at home
Sliding scale coverage
Januvia placed on hold 48hr prior to hemiarthroplasty as per Ortho recc's
# Chronic anemia
# Constipation-Bowel regimen
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
# Mitral regurgitation
# Hypertension
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
Cont Losartan and Lopressor with holding parameter
# Hyperlipidemia-statin
# Peripheral vascular disease
# Prostatic hypertrophy- Bladder scan prn
# Thrombocytosis
# Diverticulosis
# Ambulatory rnywuydsplv-flolrglbfm-vhgts
# Morbid obesity
# Depression-venlafaxine
# Insomnia-Ambien
# History of DVT more than 5 years ago
he is continued on Eliquis 5 twice daily as outpatient on hold for now as above
DVT prophylaxis-Lovenox
Full code
Anticipated Discharge: > 48 hours
Subjective/Interval History
-
Date of Service: October 20, 2023
Objective Data
-
Labs:
Laboratory Results
10/20/23
06:18
WBC 4.8
Hgb 8.5 L
Hct 26.2 L
Plt Count 511 H
Sodium 135
Potassium 5.0
Chloride 103
Carbon Dioxide 21 L
BUN 32 H
Creatinine 0.8
Glucose 113 H
Calcium 9.7
Vital Signs:
Vital Signs
Temp Pulse Resp BP Pulse Ox
36.8 C 76 18 136/68 99
10/20/23 07:20 10/20/23 09:30 10/20/23 07:20 10/20/23 09:30 10/20/23 07:20
I&O
10/19/23 10/20/23 10/21/23
06:59 06:59 06:59
Intake Total 1200 / 1200 1700 / 1700
Output Total 800 / 800 1000 / 1000 475 / 475
Balance 400 / 400 700 / 700 -475 / -475
Review of Systems
-
All other systems: Reviewed and negative
Data Reviewed
-
Labs: Labs Reviewed by me
[2023-10-20 12:12] LABS: Glucose - Point of Care 191 mg/dl (70-99)
[2023-10-20] MEDS: NOVOLOG FLEXPEN-LOW RESISTANCE 1 UNITS SC ×2 (12:49→17:39)
--- NOTE | 2023-10-20 14:16 | CM ---
Reviewed the chart notes and spoke with the patient at the bedside. The patient is scheduled for OR on Friday for right hip hemiarthroplasty. CM continues to be available to patient/family and is monitoring medical plan for needs at discharge.
Plan: Discharge back to [facility] when medically stable.
[2023-10-20 15:20] VITALS: BP 96/59
[2023-10-20 16:24] LABS: Glucose - Point of Care 171 mg/dl (70-99)
--- NOTE | 2023-10-20 16:54 | W.PN.ID1 ---
Date of Service
Date of Service: October 20, 2023
Today's Communication
- repeat blood cultures x2 today off of antibiotics
- agree with plans for the OR 10/21
- would recommend a dose of vancomycin perioperatively in addition to cefazolin given MRSA colonization
Assessment / Plan
Fever - resolved
- repeat blood cultures x2 today off of antibiotics
- agree with plans for the OR 10/21
- would recommend a dose of vancomycin perioperatively in addition to cefazolin given MRSA colonization
Recent Nonsustained MRSA bacteremia due to buttock abscess
Abscess resolved and wound healing
- completed two weeks of daptomycin 10/15
- advise against use of steroids perioperatively and for the next 3 months post operatively
- chlorhexidine wash of patient within the 24 hours before the surgery
- intranasal mupirocin BID x 2 weeks
Chief Complaint
-: Fever
Subjective / Review of Systems
afebrile
bp stable
without leukocytosis
cr stable
10/17 blood cultures no growth to date
Vital Signs / Physical Exam
Vital Signs
Vital Signs
Temp Pulse Resp BP Pulse Ox
98.3 F 75 20 96/59 94
10/20/23 15:20 10/20/23 15:20 10/20/23 15:20 10/20/23 15:20 10/20/23 15:20
Physical Exam
Constitutional: No Acute Distress
Cardiovascular: Regular Rate and S1/S2; Negative Murmur or Rub
Pulmonary: Clear and Symmetric; Negative Wheezes or Rales
Gastrointestinal: Soft, Non Tender, Non Distended and Normal Bowel Sounds
Skin: Warm and Dry; Negative Rash or Jaundice
Objective Data
Lab Data
Lab Results
10/20/23 06:18
10/20/23 06:18
Estimated Creat Clear 92 ml/min 10/20/23 06:18
Lactic Acid Cancelled 10/14/23 19:15
Total Bilirubin 1.3 mg/dl (0.2-1.3) 10/14/23 15:10
AST 38 U/L (17-59) 10/14/23 15:10
ALT 27 U/L (0-50) 10/14/23 15:10
Alkaline Phosphatase 91 U/L (38-126) 10/14/23 15:10
Most recent labs reviewed.
Micro Results:
10/15/23 16:14 Blood Culture - Final
Blood/Venous No Growth - Final Report
10/18/23 10:24 Blood Culture - Preliminary
Blood/Venous No Growth in 48 hours- Final report to follow
10/18/23 20:26 Blood Culture - Preliminary
Blood/Venous No Growth in 24 hours- Final report to follow
10/15/23 17:02 Blood Culture - Preliminary
Blood/Venous No Growth in 4 days- Final report to follow
10/14/23 15:19 Blood Culture - Final
Blood/Venous No Growth - Final Report
10/14/23 15:10 Blood Culture - Final
Blood/Venous No Growth - Final Report
10/14/23 15:34 Wound Culture - Final
Buttock Proteus mirabilis
Pseudomonas aeruginosa
Klebsiella pneumoniae
Marika albicans
Gram Stain - Final
10/15/23 18:18 Urine Culture - Final
Urine
10/14/23 15:10 Urine Culture - Final
Urine
[2023-10-20] MEDS: LOPRESSOR PO (20:34)
[2023-10-20] MEDS: COLACE PO (20:35)
[2023-10-20] MEDS: SENOKOT PO (20:36)
[2023-10-20 21:30] LABS: Glucose - Point of Care 180 mg/dl (70-99)
[2023-10-20] MEDS: AMBIEN 10 MG PO (23:12)
[2023-10-20 23:47] VITALS: BP 113/73
--- NOTE | 2023-10-21 06:57 | W.PN.UPDATE ---
Update Note
Progress Note Update
83-year-old male for OR [address] Corbett for right hip hemiarthroplasty for displaced femoral neck fracture.
-Continue to monitor for negative blood culture
-Consents on file
-Laterality signed
-Type and screen ordered as well as antibiotic and irrigation for OR
-Ordered dose of vancomycin to be given preop along with cefazolin due to positive nasal MRSA
-NPO past midnight
-Hold Januvia 48 hours preop
-Last dose of Lovenox tonight (hold AM dose)
[2023-10-21 07:30] VITALS: BP 96/66
[2023-10-21 07:36] LABS: Hematocrit 25.2 % (39.0-52.0); Hemoglobin 8.1 g/dL (13.0-18.0); Mean Corp Hgb Conc. 32.1 g/dL (33.0-37.0); Mean Corpuscular Hgb 31.2 pg (27.0-31.0); Mean Corpuscular Volume 96.9 fL (80.0-94.0); Platelet Count 451 10^3/uL (130-400); Red Cell Dist. Width 17.2 % (11.5-14.5); White Blood Cell Count 5.5 10^3/uL (4.8-10.8)
[2023-10-21 07:39] LABS: Glucose - Point of Care 146 mg/dl (70-99)
[2023-10-21] MEDS: NOVOLOG FLEXPEN-LOW RESISTANCE SC ×2 (08:04→12:29)
[2023-10-21] MEDS: BACTROBAN 2% OINTMENT 1 APPLIC NASAL ×2 (08:04→19:54)
[2023-10-21] MEDS: DESENEX/MITRAZOL/ZEASORB 1 APPLIC TOPICAL ×2 (08:05→19:54)
[2023-10-21] MEDS: THERAGRAN 1 TABLET PO (08:06)
[2023-10-21] MEDS: COLACE 100 MG PO (08:06)
[2023-10-21] MEDS: ZYRTEC 10 MG PO (08:07)
[2023-10-21] MEDS: EFFEXOR XR 150 MG PO (08:07)
[2023-10-21] MEDS: METAMUCIL, KONSYL 1 PACKET PO (08:07)
[2023-10-21] MEDS: VITAMIN D3 (cholecalciferol) 50 MCG PO (08:07)
[2023-10-21] MEDS: COZAAR PO (08:08)
[2023-10-21] MEDS: SENOKOT PO ×2 (08:08→19:55)
[2023-10-21] MEDS: LOPRESSOR PO (08:08)
[2023-10-21 08:13] LABS: Blood Urea Nitrogen 32 mg/dl (9-20); Calcium 9.4 mg/dl (8.4-10.2); Carbon Dioxide 24 mmol/L (22-30); Chloride 101 mmol/L (98-107); Estimated Creatinine Clearance 73 ml/min; Glucose 123 mg/dl (70-99); Magnesium 2.2 mg/dl (1.6-2.3); Phosphorus 5.1 mg/dl (2.5-4.5); Sodium 136 mmol/L (135-145); eGFR > 60.00
[2023-10-21] MEDS: LOVENOX 100 MG SC (10:17)
--- NOTE | 2023-10-21 11:36 | W.PN.HOSP.TC ---
Today's Communication/Plan
-
see A/P
Assessment / Plan
Assessment / Plan
HPI: 83-year-old male with spinal stenosis and functional paraplegia wheelchair-bound presented after right inner thigh pain after a fall. He was transitioning to wheelchair from bed but landed on the floor. Patient recently completed IV daptomycin
on 10/16/2023 for MRSA bacteremia secondary to right gluteal area wound and sepsis. Patient also also found to have a fever 100.3 in the ER.
Echo 10/02/2023-normal LV size. Systolic function. Mild concentric LVH. Ejection fraction 55%. Normal RV size and function. Mildly dilated LA. Moderate MR. Thickened arctic valve
A/P:
# Right femoral neck fracture
Same leg as infection which was recently treated
Orthopedic consulted, plan for right hip hemiarthroplasty 10/[address] Corbett
Holding Eliquis, cont weight based Lovenox (bridging) till surgery
ID eval appreciated, stopped antibiotic, felt most likely Venous stasis dermatitis
Repeat blood cultures neg
# Fever of 101 on 10/15/2023 and 10/16/23
cultures are negative so far except for wound cultures
Urine analysis and chest x-ray unremarkable
Completed Abx
# Right gluteal wound
Wound care
Special mattress and wound care
# Diabetes
on Januvia 100 mg, metformin thousand twice daily at home
Sliding scale coverage
Januvia placed on hold 48hr prior to hemiarthroplasty as per Ortho recc's
# Chronic anemia
# Constipation-Bowel regimen
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
# Mitral regurgitation
# Hypertension
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
Cont Losartan and Lopressor with holding parameter
# Hyperlipidemia-statin
# Peripheral vascular disease
# Prostatic hypertrophy- Bladder scan prn
# Thrombocytosis
# Diverticulosis
# Ambulatory tnuqsgpjkzf-hcppnvphkx-wevvx
# Morbid obesity
# Depression-venlafaxine
# Insomnia-Ambien
# History of DVT more than 5 years ago
he is continued on Eliquis 5 twice daily as outpatient on hold for now as above
DVT prophylaxis-Lovenox
Full code
Anticipated Discharge: > 48 hours
Subjective/Interval History
-
Date of Service: October 21, 2023
Objective Data
-
Labs:
Laboratory Results
10/21/23
06:54
WBC 5.5
Hgb 8.1 L
Hct 25.2 L
Plt Count 451 H
Sodium 136
Potassium 5.0
Chloride 101
Carbon Dioxide 24
BUN 32 H
Creatinine 1.0
Glucose 123 H
Calcium 9.4
Vital Signs:
Vital Signs
Temp Pulse Resp BP Pulse Ox
36.3 C 90 18 96/66 97
10/21/23 07:30 10/21/23 08:08 10/21/23 07:30 10/21/23 08:08 10/21/23 07:30
I&O
10/20/23 10/21/23 10/22/23
06:59 06:59 06:59
Intake Total 1700 / 1700 1680 / 1680
Output Total 1000 / 1000 1325 / 1325
Balance 700 / 700 355 / 355
Review of Systems
-
All other systems: Reviewed and negative
Physical Exam
-
General: Well Developed, Well Nourished, No Apparent Distress, Comfortable and Conversant; Negative Respiratory Distress
HEENT: Normocephalic, Atraumatic, Nose Appears Normal and Ears Appear Normal; Negative Oxygen
Respiratory: Clear to Auscultation and Non Labored Respirations; Negative Accessory Resp Muscle Use
Cardiac: Regular Rhythm and S1/S2
GI: Soft, Nontender, Nondistended and Normal Bowel Sounds
Skin: Warm and Dry
Neuro: Awake, Alert, Oriented, AO x 3 and Other (paraplegic)
Psych: Calm and Intact Judgement/Insight
Data Reviewed
-
Diagnostic Radiology: Report Reviewed by me
Labs: Labs Reviewed by me
--- NOTE | 2023-10-21 12:03 | W.PN.ID1 ---
Date of Service
Date of Service: October 21, 2023
Today's Communication
- agree with plans for the OR 10/21
Assessment / Plan
Fever - resolved
- repeat blood cultures x2 10/19 remain no growth to date
- agree with plans for the OR 10/21
- would recommend a dose of vancomycin perioperatively in addition to cefazolin given MRSA colonization
Recent Nonsustained MRSA bacteremia due to buttock abscess
Abscess resolved and wound healing
- completed two weeks of daptomycin 10/15
- advise against use of steroids perioperatively and for the next 3 months post operatively
- chlorhexidine wash of patient within the 24 hours before the surgery
- intranasal mupirocin BID x 2 weeks
Chief Complaint
-: Fever
Subjective / Review of Systems
afebrile
bp stable
without leukocytosis
cr stable
blood cultures 10/19 no growth to date
Vital Signs / Physical Exam
Vital Signs
Vital Signs
Temp Pulse Resp BP Pulse Ox
97.3 F 90 18 96/66 97
10/21/23 07:30 10/21/23 08:08 10/21/23 07:30 10/21/23 08:08 10/21/23 07:30
Physical Exam
Constitutional: No Acute Distress
Cardiovascular: Regular Rate and S1/S2; Negative Murmur or Rub
Pulmonary: Clear and Symmetric; Negative Wheezes or Rales
Gastrointestinal: Soft, Non Tender, Non Distended and Normal Bowel Sounds
Skin: Warm and Dry; Negative Rash or Jaundice
Objective Data
Lab Data
Lab Results
10/21/23 06:54
10/21/23 06:54
Estimated Creat Clear 73 ml/min 10/21/23 06:54
Lactic Acid Cancelled 10/14/23 19:15
Total Bilirubin 1.3 mg/dl (0.2-1.3) 10/14/23 15:10
AST 38 U/L (17-59) 10/14/23 15:10
ALT 27 U/L (0-50) 10/14/23 15:10
Alkaline Phosphatase 91 U/L (38-126) 10/14/23 15:10
Most recent labs reviewed.
Micro Results:
10/18/23 10:24 Blood Culture - Preliminary
Blood/Venous No Growth in 72 hours- Final report to follow
10/18/23 20:26 Blood Culture - Preliminary
Blood/Venous No Growth in 48 hours- Final report to follow
10/20/23 18:18 Blood Culture - Pending
Blood/Venous
10/20/23 17:12 Blood Culture - Pending
Blood/Venous
10/15/23 17:02 Blood Culture - Final
Blood/Venous No Growth - Final Report
10/15/23 16:14 Blood Culture - Final
Blood/Venous No Growth - Final Report
10/14/23 15:19 Blood Culture - Final
Blood/Venous No Growth - Final Report
10/14/23 15:10 Blood Culture - Final
Blood/Venous No Growth - Final Report
10/14/23 15:34 Wound Culture - Final
Buttock Proteus mirabilis
Pseudomonas aeruginosa
Klebsiella pneumoniae
Marika albicans
Gram Stain - Final
10/15/23 18:18 Urine Culture - Final
Urine
10/14/23 15:10 Urine Culture - Final
Urine
[2023-10-21 12:10] LABS: Glucose - Point of Care 141 mg/dl (70-99)
--- NOTE | 2023-10-21 15:00 | CM ---
Addendum entered by Jade Paige RN 10/21/23 15:02:
For OR tomorrow for right hip hemiarthroplasty for displaced femoral neck fracture.
Original Note:
Reviewed the chart notes. CM continues to be available to patient/family and is monitoring medical plan for needs at discharge.
[facility]
[2023-10-21 15:35] VITALS: BP 113/74
[2023-10-21 16:46] LABS: Glucose - Point of Care 154 mg/dl (70-99)
[2023-10-21] MEDS: NOVOLOG FLEXPEN-LOW RESISTANCE 1 UNITS SC (17:11)
[2023-10-21] MEDS: COLACE PO (19:50)
[2023-10-21] MEDS: LOPRESSOR 50 MG PO (19:54)
[2023-10-21] MEDS: ROXICODONE 5 MG PO (19:56)
[2023-10-21] MEDS: FLOMAX 0.400000000000000022 MG PO (21:00)
[2023-10-21 22:37] LABS: Glucose - Point of Care 180 mg/dl (70-99)
[2023-10-21] MEDS: AMBIEN 10 MG PO (22:47)
[2023-10-21 23:31] VITALS: BP 111/60
[2023-10-22] VITALS (18 sets, daily range): BP systolic 82–120; BP diastolic 46–77; BMI 31.9
[2023-10-22] MEDS: ROXICODONE 5 MG PO ×3 (00:01→22:32)
[2023-10-22 05:46] LABS: Glucose - Point of Care 135 mg/dl (70-99)
[2023-10-22] MEDS: NOVOLOG FLEXPEN-LOW RESISTANCE SC ×2 (05:49→16:07)
[2023-10-22] MEDS: VANCOCIN 300 ML IV (06:01)
[2023-10-22] MEDS: VANCOCIN 300 MG IV (06:01)
[2023-10-22 06:40] LABS: Hematocrit 25.4 % (39.0-52.0); Hemoglobin 8.1 g/dL (13.0-18.0); Mean Corp Hgb Conc. 31.9 g/dL (33.0-37.0); Mean Corpuscular Hgb 30.7 pg (27.0-31.0); Mean Corpuscular Volume 96.2 fL (80.0-94.0); Mean Platelet Volume 10.7 fL (7.4-10.4); Platelet Count 455 10^3/uL (130-400); Red Blood Cell Count 2.64 10^6/uL (4.70-6.10); Red Cell Dist. Width 17.5 % (11.5-14.5); White Blood Cell Count 5.7 10^3/uL (4.8-10.8)
[2023-10-22 07:13] LABS: Blood Urea Nitrogen 32 mg/dl (9-20); Calcium 9.7 mg/dl (8.4-10.2); Carbon Dioxide 23 mmol/L (22-30); Chloride 102 mmol/L (98-107); Estimated Creatinine Clearance 81 ml/min; Glucose 122 mg/dl (70-99); Magnesium 2.3 mg/dl (1.6-2.3); Potassium 4.8 mmol/L (3.5-5.1); Sodium 134 mmol/L (135-145); eGFR > 60.00
[2023-10-22] MEDS: COLACE PO ×2 (09:19→20:09)
[2023-10-22] MEDS: VITAMIN D3 (cholecalciferol) 50 MCG PO (09:19)
[2023-10-22] MEDS: THERAGRAN 1 TABLET PO (09:19)
[2023-10-22] MEDS: SENOKOT PO ×2 (09:19→20:09)
[2023-10-22] MEDS: ZYRTEC 10 MG PO (09:20)
[2023-10-22] MEDS: EFFEXOR XR 150 MG PO (09:20)
[2023-10-22] MEDS: METAMUCIL, KONSYL PO (09:20)
[2023-10-22] MEDS: COZAAR 50 MG PO (09:20)
[2023-10-22] MEDS: LOPRESSOR 50 MG PO (09:20)
[2023-10-22] MEDS: DESENEX/MITRAZOL/ZEASORB 1 APPLIC TOPICAL ×2 (09:31→20:13)
--- NOTE | 2023-10-22 10:34 | W.PN.HOSP.TC ---
Today's Communication/Plan
-
for OR today
Assessment / Plan
Assessment / Plan
HPI: 83-year-old male with spinal stenosis and functional paraplegia wheelchair-bound presented after right inner thigh pain after a fall. He was transitioning to wheelchair from bed but landed on the floor. Patient recently completed IV daptomycin
on 10/16/2023 for MRSA bacteremia secondary to right gluteal area wound and sepsis. Patient also also found to have a fever 100.3 in the ER.
Echo 10/02/2023-normal LV size. Systolic function. Mild concentric LVH. Ejection fraction 55%. Normal RV size and function. Mildly dilated LA. Moderate MR. Thickened arctic valve
A/P:
# Right femoral neck fracture
Same leg as infection which was recently treated
Orthopedic consulted, plan for right hip hemiarthroplasty 10/[address] Corbett
Holding Eliquis, cont weight based Lovenox (bridging) till evening prior to surgery
ID eval appreciated, stopped antibiotic, felt most likely Venous stasis dermatitis
Repeat blood cultures neg
# Fever of 101 on 10/15/2023 and 10/16/23
cultures are negative so far except for wound cultures
Urine analysis and chest x-ray unremarkable
Completed Abx
# Right gluteal wound
Wound care
Special mattress and wound care
# Diabetes
on Januvia 100 mg, metformin thousand twice daily at home
Sliding scale coverage
Januvia placed on hold 48hr prior to hemiarthroplasty as per Ortho recc's
# Chronic anemia
# Constipation-Bowel regimen
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
# Mitral regurgitation
# Hypertension
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
Cont Losartan and Lopressor with holding parameter
# Hyperlipidemia-statin
# Peripheral vascular disease
# Prostatic hypertrophy- Bladder scan prn
# Thrombocytosis
# Diverticulosis
# Ambulatory [id number]-takfvrfxbh-[id number]
# Morbid obesity
# Depression-venlafaxine
# Insomnia-Ambien
# History of DVT more than 5 years ago
he is continued on Eliquis 5 twice daily as outpatient on hold for now as above
DVT prophylaxis-Lovenox
Full code
Anticipated Discharge: > 48 hours
Subjective/Interval History
-
Date of Service: October 22, 2023
Objective Data
-
Labs:
Laboratory Results
10/22/23
06:13
WBC 5.7
Hgb 8.1 L
Hct 25.4 L
Plt Count 455 H
Sodium 134 L
Potassium 4.8
Chloride 102
Carbon Dioxide 23
BUN 32 H
Creatinine 0.9
Glucose 122 H
Calcium 9.7
Vital Signs:
Vital Signs
Temp Pulse Resp BP Pulse Ox
36.7 C 76 18 119/65 95
10/22/23 07:35 10/22/23 07:35 10/22/23 07:35 10/22/23 09:20 10/22/23 07:35
I&O
10/21/23 10/22/23 10/23/23
06:59 06:59 06:59
Intake Total 1680 / 1680 1859 / 1859
Output Total 1325 / 1325
Balance 355 / 355 1839 / 1839
Review of Systems
-
All other systems: Reviewed and negative
Physical Exam
-
General: Well Developed, Well Nourished, No Apparent Distress, Comfortable and Conversant; Negative Respiratory Distress
HEENT: Normocephalic, Atraumatic, Nose Appears Normal and Ears Appear Normal; Negative Oxygen
Respiratory: Clear to Auscultation and Non Labored Respirations; Negative Accessory Resp Muscle Use
Cardiac: Regular Rhythm and S1/S2
GI: Soft, Nontender, Nondistended and Normal Bowel Sounds
Skin: Warm and Dry
Neuro: Awake, Alert, Oriented, AO x 3 and Other (paraplegic)
Psych: Calm and Intact Judgement/Insight
Data Reviewed
-
Diagnostic Radiology: Report Reviewed by me
Labs: Labs Reviewed by me
[2023-10-22] MEDS: BACTROBAN 2% OINTMENT 1 APPLIC NASAL ×2 (11:50→20:12)
[2023-10-22 12:20] LABS: Glucose - Point of Care 129 mg/dl (70-99)
--- NOTE | 2023-10-22 13:26 | CM ---
Reviewed the chart notes. Patient is scheduled for surgery today. CM continues to be available to patient/family and is monitoring medical plan for needs at discharge.
Plan: Discharge back to [facility] when medically stable.
[2023-10-22 14:32] LABS: Glucose - Point of Care 190 mg/dl (70-99)
--- NOTE | 2023-10-22 14:34 | PTCARENOTE ---
pt to OR this afternoon for fracture repair. pt went in bed and was sent with his chart. ANCEF sent down to OR via tubing system and pt was washed and wiped down with CHG wipes. fresh sheets and gown applied to bed and patient prior to transfer to
OR.
[2023-10-22] MEDS: DILAUDID 0.25 MG IV ×2 (14:53→15:15)
[2023-10-22] MEDS: NORMOSOL-R 1000 IV (15:29)
[2023-10-22 16:39] LABS: Glucose - Point of Care 210 mg/dl (70-99)
[2023-10-22] MEDS: NOVOLOG FLEXPEN-LOW RESISTANCE 2 UNITS SC (16:40)
--- NOTE | 2023-10-22 17:50 | PTCARENOTE ---
Addendum entered by Zuleyma Alex RN 10/22/23 18:30:
pt reassessed for bp of 104/82.
Original Note:
pt bp 80/48 during post op vitals. made aware. 500ml bolus ordered by and hung by this nurse.
[2023-10-22] MEDS: NSS 500 IV (17:52)
[2023-10-22] MEDS: LOPRESSOR PO (20:06)
[2023-10-22] MEDS: BACTROBAN 2% OINTMENT NASAL (20:13)
[2023-10-22] MEDS: DILAUDID 1 MG IV (20:16)
[2023-10-22] MEDS: ANCEF 5 IV (20:57)
[2023-10-22 21:27] LABS: Glucose - Point of Care 203 mg/dl (70-99)
[2023-10-22] MEDS: FLOMAX 0.400000000000000022 MG PO (22:33)
[2023-10-22] MEDS: AMBIEN 10 MG PO (22:33)
[2023-10-23] VITALS (7 sets, daily range): BP systolic 102–126; BP diastolic 58–84; PULSE 103; O2SAT 96; BMI 32.5
[2023-10-23] MEDS: ANCEF 5 IV (04:56)
--- NOTE | 2023-10-23 06:22 | W.PN.ORTHO ---
Today's Communication / Plan
-
83 yo M POD1 right hip hemiarthroplasty under the direction of Dr. Corbett.
--WBAT to RLE with assistive device. Posterior THPs. We appreciate the assistance of PT/OT.
--May resume Eliquis at modified dose (2.5mg BID x 3 days), then resume normal dose.
--Continue pain control per primary. Ice PRN for pain and edema control.
--Hgb this AM currently pending. Continue to monitor.
--Maintain surgical dressing until 7-10 days post-op.
--Case management consult for discharge planning.
--Orthopedic surgery will continue to follow along.
Assessment
.
Distal Motor Intact: Yes
Dressing:
Clean, dry and intact.
Assessment:
POD1 Right Hip Hemiarthroplasty
Plan
.
Surgery / Date: Right Hip Hemiarthroplasty 10/22/2023
DVT Prophylaxis: Other
Activity:
Out of bed.
PT/OT
Discharge Information:
Appreciate CM
Subjective
.
.:
Mr. Whitlock is POD1 following his right hip hemiarthroplasty performed by Dr. Corbett. He is resting comfortably in bed this morning. He reports that his pain is well controlled at this time and overall states that he is doing well.
Vital Signs and Labs
.
Vital Signs and Labs:
Temp Pulse Resp BP Pulse Ox
96.7 F L 99 20 126/84 97
10/23/23 03:36 10/23/23 03:36 10/23/23 03:36 10/23/23 03:36 10/23/23 03:36
[2023-10-23 06:46] LABS: Hematocrit 24.6 % (39.0-52.0); Mean Corp Hgb Conc. 32.5 g/dL (33.0-37.0); Mean Corpuscular Hgb 31.4 pg (27.0-31.0); Mean Corpuscular Volume 96.5 fL (80.0-94.0); Mean Platelet Volume 10.6 fL (7.4-10.4); Platelet Count 479 10^3/uL (130-400); Red Blood Cell Count 2.55 10^6/uL (4.70-6.10); Red Cell Dist. Width 17.5 % (11.5-14.5); White Blood Cell Count 6.4 10^3/uL (4.8-10.8)
[2023-10-23 06:53] LABS: Blood Urea Nitrogen 27 mg/dl (9-20); Calcium 9.4 mg/dl (8.4-10.2); Carbon Dioxide 23 mmol/L (22-30); Chloride 103 mmol/L (98-107); Estimated Creatinine Clearance 92 ml/min; Glucose 117 mg/dl (70-99); Magnesium 2.3 mg/dl (1.6-2.3); Potassium 4.7 mmol/L (3.5-5.1); Sodium 136 mmol/L (135-145); eGFR > 60.00
[2023-10-23] MEDS: ROXICODONE 5 MG PO ×3 (07:26→15:46)
[2023-10-23] MEDS: NOVOLOG FLEXPEN-LOW RESISTANCE SC ×2 (08:37→12:35)
[2023-10-23] MEDS: ELIQUIS 2.5 MG PO ×2 (08:38→20:00)
[2023-10-23] MEDS: LOPRESSOR PO ×3 (08:38→20:02)
[2023-10-23] MEDS: ZYRTEC 10 MG PO (08:38)
[2023-10-23] MEDS: COLACE 100 MG PO ×2 (08:38→20:00)
[2023-10-23] MEDS: SENOKOT 17.1999999999999993 MG PO ×2 (08:38→20:00)
[2023-10-23] MEDS: COZAAR PO ×2 (08:38→09:01)
[2023-10-23] MEDS: VITAMIN D3 (cholecalciferol) 50 MCG PO (08:38)
[2023-10-23] MEDS: THERAGRAN 1 TABLET PO (08:38)
[2023-10-23] MEDS: BACTROBAN 2% OINTMENT 1 APPLIC NASAL ×4 (08:39→20:02)
[2023-10-23] MEDS: EFFEXOR XR 150 MG PO (08:40)
[2023-10-23] MEDS: DESENEX/MITRAZOL/ZEASORB 1 APPLIC TOPICAL ×2 (08:40→20:01)
[2023-10-23] MEDS: METAMUCIL, KONSYL 1 PACKET PO (08:40)
[2023-10-23 08:44] LABS: Glucose - Point of Care 127 mg/dl (70-99)
--- NOTE | 2023-10-23 09:59 | W.PN.HOSP.TC ---
Today's Communication/Plan
-
see A/P
Assessment / Plan
Assessment / Plan
HPI: 83-year-old male with spinal stenosis and functional paraplegia wheelchair-bound presented after right inner thigh pain after a fall. He was transitioning to wheelchair from bed but landed on the floor. Patient recently completed IV daptomycin
on 10/16/2023 for MRSA bacteremia secondary to right gluteal area wound and sepsis. Patient also also found to have a fever 100.3 in the ER.
Echo 10/02/2023-normal LV size. Systolic function. Mild concentric LVH. Ejection fraction 55%. Normal RV size and function. Mildly dilated LA. Moderate MR. Thickened arctic valve
A/P:
# Right femoral neck fracture
Same leg as infection which was recently treated
ID eval appreciated, stopped antibiotic, felt most likely Venous stasis dermatitis
s/p right hip hemiarthroplasty 10/[address] Corbett
For DVT ppx: resumed low dose Eliquis x3 days, then CLOTH SHRINKING MACHINE OPERATOR full dose Eliquis after that
Pain control with Tylenol ATC and PRN, oxycodone PRN
Maintain surgical dressing until 7-10 days post-op.
PT OT eval, Case management consult for discharge planning.
# Fever of 101 on 10/15/2023 and 10/16/23
cultures are negative except for wound cultures
Urine analysis and chest x-ray unremarkable
Completed Abx
# Right gluteal wound
Wound care
Special mattress and wound care
# Diabetes
on Januvia 100 mg, metformin thousand twice daily at home
Sliding scale coverage
Januvia placed on hold, resume following discharge
# Chronic anemia
# Constipation-Bowel regimen
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
# Mitral regurgitation
# Hypertension
CLOTH SHRINKING MACHINE OPERATOR Losartan 50 daily, Lopressor 50 twice daily with hold parameter
# Hyperlipidemia-statin
# Peripheral vascular disease
# Prostatic hypertrophy- Bladder scan prn
# Thrombocytosis
# Diverticulosis
# Ambulatory [id number]-[id number]
# Morbid obesity
# Depression-venlafaxine
# Insomnia-Ambien
# History of DVT more than 5 years ago
on Eliquis 5 mg twice daily as outpatient
DVT prophylaxis- Eliquis
Full code
DW RN
Anticipated Discharge: Within 24 hours
Subjective/Interval History
-
Date of Service: October 23, 2023
Objective Data
-
Labs:
Laboratory Results
10/23/23
06:25
WBC 6.4
Hgb 8.0 L
Hct 24.6 L
Plt Count 479 H
Sodium 136
Potassium 4.7
Chloride 103
Carbon Dioxide 23
BUN 27 H
Creatinine 0.8
Glucose 117 H
Calcium 9.4
Vital Signs:
Vital Signs
Temp Pulse Resp BP Pulse Ox
36.8 C 94 18 102/69 97
10/23/23 08:00 10/23/23 08:00 10/23/23 08:00 10/23/23 08:30 10/23/23 08:00
I&O
10/22/23 10/23/23 10/24/23
06:59 06:59 06:59
Intake Total 1860 / 1860 1340 / 1340
Output Total 450 / 450
Balance 1840 / 1840 890 / 890
Review of Systems
-
Musculoskeletal: Reports Joint Pain (R hip)
Physical Exam
-
General: Well Developed, Well Nourished, No Apparent Distress, Comfortable and Conversant; Negative Respiratory Distress
HEENT: Normocephalic, Atraumatic, Nose Appears Normal and Ears Appear Normal; Negative Oxygen
Respiratory: Clear to Auscultation and Non Labored Respirations; Negative Accessory Resp Muscle Use
Cardiac: Regular Rhythm and S1/S2
GI: Soft, Nontender, Nondistended and Normal Bowel Sounds
Skin: Warm and Dry
Neuro: Awake, Alert and Other (paraplegic)
Psych: Calm and Intact Judgement/Insight (somewhat)
Data Reviewed
-
Diagnostic Radiology: Report Reviewed by me
Labs: Labs Reviewed by me
[2023-10-23] MEDS: TYLENOL PO ×2 (12:05→16:47)
[2023-10-23 12:28] LABS: Glucose - Point of Care 148 mg/dl (70-99)
--- NOTE | 2023-10-23 13:55 | CM ---
Reviewed the chart notes. Patient is POD1 right hip hemiarthroplasty. CM continues to be available to patient/family and is monitoring medical plan for needs at discharge.
Plan: Discharge back to [facility] when medically stable.
--- NOTE | 2023-10-23 16:23 | W.PN.ID1 ---
Date of Service
Date of Service: October 23, 2023
Today's Communication
- completed two weeks of daptomycin 10/15
- advise against use of steroids perioperatively and for the next 3 months post operatively
- intranasal mupirocin BID x 2 weeks
ID service will no longer actively follow this patient please recall for further questions
Assessment / Plan
Recent Nonsustained MRSA bacteremia due to buttock abscess
Abscess resolved and wound healing
- completed two weeks of daptomycin 10/15
- advise against use of steroids perioperatively and for the next 3 months post operatively
- intranasal mupirocin BID x 2 weeks
ID service will no longer actively follow this patient please recall for further questions
Chief Complaint
-: Fever
Subjective / Review of Systems
afebrile
bp stable
without leukocytosis
cr stable
blood cultures remain negative
s/p right hip hemiarthroplasty 10/[address] Corbett
Vital Signs / Physical Exam
Vital Signs
Vital Signs
Temp Pulse Resp BP Pulse Ox
98.9 F 103 20 110/64 97
10/23/23 15:46 10/23/23 15:46 10/23/23 15:46 10/23/23 15:46 10/23/23 15:46
Physical Exam
Constitutional: No Acute Distress
Cardiovascular: Regular Rate and S1/S2; Negative Murmur or Rub
Pulmonary: Clear and Symmetric; Negative Wheezes or Rales
Gastrointestinal: Soft, Non Tender, Non Distended and Normal Bowel Sounds
Skin: Warm and Dry; Negative Rash or Jaundice
Objective Data
Lab Data
Lab Results
10/23/23 06:25
10/23/23 06:25
Estimated Creat Clear 92 ml/min 10/23/23 06:25
Lactic Acid Cancelled 10/14/23 19:15
Total Bilirubin 1.3 mg/dl (0.2-1.3) 10/14/23 15:10
AST 38 U/L (17-59) 10/14/23 15:10
ALT 27 U/L (0-50) 10/14/23 15:10
Alkaline Phosphatase 91 U/L (38-126) 10/14/23 15:10
Most recent labs reviewed.
Micro Results:
10/18/23 10:24 Blood Culture - Final
Blood/Venous No Growth - Final Report
10/18/23 20:26 Blood Culture - Preliminary
Blood/Venous No Growth in 4 days- Final report to follow
10/20/23 18:18 Blood Culture - Preliminary
Blood/Venous No Growth in 48 hours- Final report to follow
10/20/23 17:12 Blood Culture - Preliminary
Blood/Venous No Growth in 48 hours- Final report to follow
10/15/23 17:02 Blood Culture - Final
Blood/Venous No Growth - Final Report
10/15/23 16:14 Blood Culture - Final
Blood/Venous No Growth - Final Report
10/14/23 15:19 Blood Culture - Final
Blood/Venous No Growth - Final Report
10/14/23 15:10 Blood Culture - Final
Blood/Venous No Growth - Final Report
10/14/23 15:34 Wound Culture - Final
Buttock Proteus mirabilis
Pseudomonas aeruginosa
Klebsiella pneumoniae
Marika albicans
Gram Stain - Final
10/15/23 18:18 Urine Culture - Final
Urine
10/14/23 15:10 Urine Culture - Final
Urine
[2023-10-23] MEDS: NOVOLOG FLEXPEN-LOW RESISTANCE 1 UNITS SC (16:52)
[2023-10-23 16:56] LABS: Glucose - Point of Care 176 mg/dl (70-99)
[2023-10-23] MEDS: TYLENOL 500 MG PO ×2 (16:58→23:46)
[2023-10-23] MEDS: NSS 250 IV (20:16)
[2023-10-23 21:15] LABS: Glucose - Point of Care 220 mg/dl (70-99)
[2023-10-23] MEDS: FLOMAX 0.400000000000000022 MG PO (22:21)
--- NOTE | 2023-10-23 23:05 | PTCARENOTE ---
Pt BP 92/59 automatic, 96/50 manual. Lopressor held. Notified THREAD GRINDER. 250ml NS at 125ml/hr bolus ordered and given. Recheck BP 114/59.
[2023-10-23] MEDS: AMBIEN 10 MG PO (23:46)
[2023-10-24] MEDS: ROXICODONE 5 MG PO ×5 (00:27→21:55)
[2023-10-24] MEDS: TYLENOL PO (05:40)
[2023-10-24 06:56] LABS: Hematocrit 23.4 % (39.0-52.0); Hemoglobin 7.4 g/dL (13.0-18.0); Mean Corp Hgb Conc. 31.6 g/dL (33.0-37.0); Mean Corpuscular Hgb 31.1 pg (27.0-31.0); Mean Corpuscular Volume 98.3 fL (80.0-94.0); Mean Platelet Volume 10.7 fL (7.4-10.4); Platelet Count 382 10^3/uL (130-400); Red Blood Cell Count 2.38 10^6/uL (4.70-6.10); Red Cell Dist. Width 17.2 % (11.5-14.5); White Blood Cell Count 4.7 10^3/uL (4.8-10.8)
--- NOTE | 2023-10-24 07:19 | W.PN.ORTHO ---
Today's Communication / Plan
-
83 yo M POD2 right hip hemiarthroplasty w/ Dr. Corbett.
--Hgb from 8.0 to 7.4; at discretion per primary for transfusion; bleeding controlled at surgical site.
--WBAT to RLE with assistive device. Posterior THPs. We appreciate the assistance of PT/OT.
--May resume Eliquis at modified dose (2.5mg BID x 3 days), then resume normal dose.
--Continue pain control per primary. Ice PRN for pain and edema control.
--Maintain surgical dressing until 7-10 days post-op.
--Case management consult for discharge planning.
--Orthopedic surgery will follow peripherally at this time; discharge information placed. Please reengage with further questions/concerns.
Assessment
.
Distal Motor Intact: Yes
Dressing:
Clean, dry and intact.
Plan
.
Surgery / Date: Right Hip Hemiarthroplasty 10/22/2023
Activity:
Out of bed.
PT/OT
Subjective
.
.:
Patient resting comfortably.
Vital Signs and Labs
.
Vital Signs and Labs:
Lab Results
10/24/23 06:40
Temp Pulse Resp BP Pulse Ox
98.6 F 95 19 113/58 94
10/23/23 23:17 10/23/23 23:17 10/23/23 23:17 10/23/23 23:17 10/24/23 02:38
[2023-10-24 07:27] LABS: Blood Urea Nitrogen 26 mg/dl (9-20); Calcium 9.3 mg/dl (8.4-10.2); Carbon Dioxide 23 mmol/L (22-30); Chloride 103 mmol/L (98-107); Estimated Creatinine Clearance 92 ml/min; Glucose 112 mg/dl (70-99); Potassium 4.9 mmol/L (3.5-5.1); Sodium 133 mmol/L (135-145); eGFR > 60.00
[2023-10-24 07:35] VITALS: BP 113/71
[2023-10-24 07:48] LABS: Glucose - Point of Care 134 mg/dl (70-99)
[2023-10-24] MEDS: NOVOLOG FLEXPEN-LOW RESISTANCE SC (07:58)
[2023-10-24] MEDS: VITAMIN D3 (cholecalciferol) 50 MCG PO (08:00)
[2023-10-24] MEDS: THERAGRAN 1 TABLET PO (08:00)
[2023-10-24] MEDS: METAMUCIL, KONSYL 1 PACKET PO (08:00)
[2023-10-24] MEDS: LOPRESSOR 50 MG PO (08:00)
[2023-10-24] MEDS: ELIQUIS 2.5 MG PO ×2 (08:00→20:46)
[2023-10-24] MEDS: ZYRTEC 10 MG PO (08:00)
[2023-10-24] MEDS: EFFEXOR XR 150 MG PO (08:00)
[2023-10-24] MEDS: COZAAR 50 MG PO (08:01)
[2023-10-24] MEDS: SENOKOT 17.1999999999999993 MG PO ×2 (08:01→20:44)
[2023-10-24] MEDS: COLACE 100 MG PO ×2 (08:01→20:46)
[2023-10-24] MEDS: BACTROBAN 2% OINTMENT 1 APPLIC NASAL ×2 (08:02→20:44)
[2023-10-24] MEDS: DESENEX/MITRAZOL/ZEASORB 1 APPLIC TOPICAL ×2 (08:02→20:45)
--- NOTE | 2023-10-24 09:53 | W.PN.HOSP.TC ---
Today's Communication/Plan
-
transfuse 1 unit PRBC
Assessment / Plan
Assessment / Plan
HPI: 83-year-old male with spinal stenosis and functional paraplegia wheelchair-bound presented after right inner thigh pain after a fall. He was transitioning to wheelchair from bed but landed on the floor. Patient recently completed IV daptomycin
on 10/16/2023 for MRSA bacteremia secondary to right gluteal area wound and sepsis. Patient also also found to have a fever 100.3 in the ER.
Echo 10/02/2023-normal LV size. Systolic function. Mild concentric LVH. Ejection fraction 55%. Normal RV size and function. Mildly dilated LA. Moderate MR. Thickened arctic valve
A/P:
# Right femoral neck fracture
Same leg as infection which was recently treated
ID eval appreciated, stopped antibiotic, felt most likely Venous stasis dermatitis
s/p right hip hemiarthroplasty 10/[address] Corbett
For DVT ppx: resumed low dose Eliquis x3 days, then BACTERIOLOGY RESEARCH ASSISTANT full dose Eliquis after that
Pain control with Tylenol ATC and PRN, oxycodone PRN
Maintain surgical dressing until 7-10 days post-op.
PT OT eval, Case management consult for discharge planning.
# Acute post op blood loss anemia
Hgb 8.0 to 7.4
transfuse 1 unit PRBC
# Fever of 101 on 10/15/2023 and 10/16/23
cultures are negative except for wound cultures
Urine analysis and chest x-ray unremarkable
Completed Abx
# Right gluteal wound
Wound care
Special mattress and wound care
# Diabetes
on Januvia 100 mg, metformin thousand twice daily at home
Sliding scale coverage
Januvia placed on hold, resume following discharge
# Chronic anemia
# Constipation-Bowel regimen
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
# Mitral regurgitation
# Hypertension
BACTERIOLOGY RESEARCH ASSISTANT Losartan 50 daily, Lopressor 50 twice daily with hold parameter
# Hyperlipidemia-statin
# Peripheral vascular disease
# Prostatic hypertrophy- Bladder scan prn
# Thrombocytosis
# Diverticulosis
# Ambulatory chcsdpalpra-dauyilnvkd-mhgum
# Morbid obesity
# Depression-venlafaxine
# Insomnia-Ambien
# History of DVT more than 5 years ago
on Eliquis 5 mg twice daily as outpatient
DVT prophylaxis- Eliquis
Full code
Anticipated Discharge: Within 24 hours
Subjective/Interval History
-
Date of Service: October 24, 2023
Objective Data
-
Labs:
Laboratory Results
10/24/23
06:40
WBC 4.7 L
Hgb 7.4 L
Hct 23.4 L
Plt Count 382 D
Sodium 133 L
Potassium 4.9
Chloride 103
Carbon Dioxide 23
BUN 26 H
Creatinine 0.8
Glucose 112 H
Calcium 9.3
Vital Signs:
Vital Signs
Temp Pulse Resp BP Pulse Ox
36.6 C 94 18 113/71 98
10/24/23 07:35 10/24/23 07:35 10/24/23 07:35 10/24/23 07:35 10/24/23 07:35
I&O
10/23/23 10/24/23 10/25/23
06:59 06:59 06:59
Intake Total 1340 / 1340 1440 / 1440
Output Total 450 / 450 1450 / 1450
Balance 890 / 890 -10 / -10
Review of Systems
-
All other systems: Reviewed and negative
Physical Exam
-
General: Well Developed, Well Nourished, No Apparent Distress, Comfortable and Conversant; Negative Respiratory Distress
HEENT: Normocephalic, Atraumatic, Nose Appears Normal and Ears Appear Normal; Negative Oxygen
Respiratory: Clear to Auscultation and Non Labored Respirations; Negative Accessory Resp Muscle Use
Cardiac: Regular Rhythm and S1/S2
GI: Soft, Nontender, Nondistended and Normal Bowel Sounds
Skin: Warm and Dry
Neuro: Awake, Alert and Other (paraplegic)
Psych: Calm and Intact Judgement/Insight (somewhat)
Data Reviewed
-
Diagnostic Radiology: Report Reviewed by me
Labs: Labs Reviewed by me
--- NOTE | 2023-10-24 11:37 | CM ---
Addendum entered by Jade Paige RN 10/24/23 16:14:
IMM signed and placed on chart.
Original Note:
Reviewed the chart notes. Patient received 1 unit PRBC. Patient is POD #2 for right hip hemiarthroplasty. CM continues to be available to patient/family and is monitoring medical plan for needs at discharge.
Plan: Discharge back to [facility] when medically stable.
[2023-10-24 12:08] LABS: Glucose - Point of Care 199 mg/dl (70-99)
[2023-10-24] MEDS: TYLENOL 500 MG PO ×3 (13:32→23:01)
[2023-10-24] MEDS: NOVOLOG FLEXPEN-LOW RESISTANCE 1 UNITS SC ×2 (13:33→17:07)
[2023-10-24 13:36] VITALS: BP 106/72
[2023-10-24 13:57] VITALS: BP 127/73
[2023-10-24 15:28] VITALS: BP 122/91
[2023-10-24 15:57] VITALS: BP 107/67
--- NOTE | 2023-10-24 16:13 | PTCARENOTE ---
Pt ordered 1 unit of PRBC for Hbg 7.4, tolerated transfusion well, vital signs remained stable throughout transfusion.
[2023-10-24 16:21] LABS: Glucose - Point of Care 150 mg/dl (70-99)
[2023-10-24] MEDS: LOPRESSOR PO (20:45)
[2023-10-24 21:40] LABS: Glucose - Point of Care 155 mg/dl (70-99)
[2023-10-24] MEDS: FLOMAX 0.400000000000000022 MG PO (21:54)
[2023-10-24] MEDS: AMBIEN 10 MG PO (21:55)
[2023-10-24 23:17] VITALS: BP 133/68
[2023-10-25 05:23] LABS: Hemoglobin 8.3 g/dL (13.0-18.0); Mean Corp Hgb Conc. 33.2 g/dL (33.0-37.0); Mean Corpuscular Hgb 31.6 pg (27.0-31.0); Mean Corpuscular Volume 95.1 fL (80.0-94.0); Mean Platelet Volume 10.5 fL (7.4-10.4); Platelet Count 482 10^3/uL (130-400); Red Blood Cell Count 2.63 10^6/uL (4.70-6.10); Red Cell Dist. Width 17.1 % (11.5-14.5); White Blood Cell Count 5.1 10^3/uL (4.8-10.8)
[2023-10-25] MEDS: TYLENOL 500 MG PO ×2 (05:38→11:03)
[2023-10-25] MEDS: ROXICODONE 5 MG PO ×2 (05:41→11:03)
[2023-10-25 05:46] LABS: Blood Urea Nitrogen 25 mg/dl (9-20); Calcium 9.4 mg/dl (8.4-10.2); Carbon Dioxide 23 mmol/L (22-30); Chloride 103 mmol/L (98-107); Estimated Creatinine Clearance 92 ml/min; Glucose 113 mg/dl (70-99); Magnesium 1.9 mg/dl (1.6-2.3); Sodium 134 mmol/L (135-145); eGFR > 60.00
[2023-10-25 07:20] VITALS: BP 109/67
[2023-10-25 07:47] LABS: Glucose - Point of Care 138 mg/dl (70-99)
[2023-10-25] MEDS: ELIQUIS 2.5 MG PO (08:34)
[2023-10-25] MEDS: COLACE PO (08:34)
[2023-10-25] MEDS: VITAMIN D3 (cholecalciferol) 50 MCG PO (08:34)
[2023-10-25] MEDS: COZAAR PO (08:35)
[2023-10-25] MEDS: THERAGRAN 1 TABLET PO (08:36)
[2023-10-25] MEDS: ZYRTEC 10 MG PO (08:36)
[2023-10-25] MEDS: EFFEXOR XR 150 MG PO (08:36)
[2023-10-25] MEDS: LOPRESSOR PO (08:36)
[2023-10-25] MEDS: NOVOLOG FLEXPEN-LOW RESISTANCE SC ×2 (08:36→12:29)
[2023-10-25] MEDS: SENOKOT 17.1999999999999993 MG PO (08:37)
[2023-10-25] MEDS: DESENEX/MITRAZOL/ZEASORB 1 APPLIC TOPICAL (08:37)
[2023-10-25] MEDS: METAMUCIL, KONSYL 1 PACKET PO (08:37)
[2023-10-25] MEDS: BACTROBAN 2% OINTMENT 1 APPLIC NASAL (08:38)
--- NOTE | 2023-10-25 11:07 | W.PN.HOSP.TC ---
Addendum entered and electronically signed by Susana Kate MD 10/25/23 13:06:
total DC time 36 min
Original Note:
Today's Communication/Plan
-
dispo planning
Assessment / Plan
Assessment / Plan
HPI: 83-year-old male with spinal stenosis and functional paraplegia wheelchair-bound presented after right inner thigh pain after a fall. He was transitioning to wheelchair from bed but landed on the floor. Patient recently completed IV daptomycin
on 10/16/2023 for MRSA bacteremia secondary to right gluteal area wound and sepsis. Patient also also found to have a fever 100.3 in the ER.
Echo 10/02/2023-normal LV size. Systolic function. Mild concentric LVH. Ejection fraction 55%. Normal RV size and function. Mildly dilated LA. Moderate MR. Thickened arctic valve
A/P:
# Right femoral neck fracture
Same leg as infection which was recently treated
ID eval appreciated, stopped antibiotic, felt most likely Venous stasis dermatitis
s/p right hip hemiarthroplasty 10/[address] Corbett
For DVT ppx: resumed low dose Eliquis x3 days, then DIRECTOR OF CAREER RESOURCES full dose Eliquis after that
Pain control with Tylenol ATC and PRN, oxycodone PRN
Maintain surgical dressing until 7-10 days post-op.
PT OT eval, Case management consult for discharge planning.
# Acute post op blood loss anemia
Hgb 8.0 to 7.4, transfused 1 unit PRBC, Hgb improved to 8.3
# Fever of 101 on 10/15/2023 and 10/16/23
cultures are negative except for wound cultures
Urine analysis and chest x-ray unremarkable
Completed Abx
# Right gluteal wound
Wound care
Special mattress and wound care
# Diabetes
on Januvia 100 mg, metformin thousand twice daily at home
Sliding scale coverage
Januvia placed on hold, resume following discharge
# Chronic anemia
# Constipation-Bowel regimen
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
# Mitral regurgitation
# Hypertension
DIRECTOR OF CAREER RESOURCES Losartan 50 daily, Lopressor 50 twice daily with hold parameter
# Hyperlipidemia-statin
# Peripheral vascular disease
# Prostatic hypertrophy- Bladder scan prn
# Thrombocytosis
# Diverticulosis
# Ambulatory gachezuempl-caiahrsqfe-iiuko
# Morbid obesity
# Depression-venlafaxine
# Insomnia-Ambien
# History of DVT more than 5 years ago
on Eliquis 5 mg twice daily as outpatient
DVT prophylaxis- Eliquis
Full code
Anticipated Discharge: Within 24 hours
Subjective/Interval History
-
Date of Service: October 25, 2023
Objective Data
-
Labs:
Laboratory Results
10/25/23
04:36
WBC 5.1
Hgb 8.3 L
Hct 25.0 L
Plt Count 482 H D
Sodium 134 L
Potassium 5.0
Chloride 103
Carbon Dioxide 23
BUN 25 H
Creatinine 0.8
Glucose 113 H
Calcium 9.4
Vital Signs:
Vital Signs
Temp Pulse Resp BP Pulse Ox
36.7 C 91 18 109/67 96
10/25/23 07:20 10/25/23 08:35 10/25/23 07:20 10/25/23 08:35 10/25/23 07:20
I&O
10/24/23 10/25/23 10/26/23
06:59 06:59 06:59
Intake Total 1440 / 1440 1550 / 1550
Output Total 1450 / 1450 1150 / 1150
Balance -10 / -10 400 / 400
Review of Systems
-
All other systems: Reviewed and negative
Physical Exam
-
General: Well Developed, Well Nourished, No Apparent Distress, Comfortable and Conversant; Negative Respiratory Distress
HEENT: Normocephalic, Atraumatic, Nose Appears Normal and Ears Appear Normal; Negative Oxygen
Respiratory: Clear to Auscultation and Non Labored Respirations; Negative Accessory Resp Muscle Use
Cardiac: Regular Rhythm and S1/S2
GI: Soft, Nontender, Nondistended and Normal Bowel Sounds
Skin: Warm and Dry
Neuro: Awake, Alert and Other (paraplegic)
Psych: Calm and Intact Judgement/Insight (somewhat)
Data Reviewed
-
Diagnostic Radiology: Report Reviewed by me
Labs: Labs Reviewed by me
--- NOTE | 2023-10-25 11:15 | CM ---
CM called to victorino from [facility] to confirm ability to return today, awaiting response.
--- NOTE | 2023-10-25 12:02 | CM ---
Patient for return to SNF, CM confirmed with [facility] return and patient will need ambulance for transfer. Please call report to [phone]/ fax [phone]. CM completed med nec form and provided to munitions handler. CM left VM for patient to
confirm discharge. CM will continue to follow for discharge planning needs.
Plan; return to SNF; [facility] via ambulance
[2023-10-25 12:28] LABS: Glucose - Point of Care 147 mg/dl (70-99)
--- NOTE | 2023-10-25 12:53 | W.DCSUMMARY ---
Discharge Summary
Discharge Data
Date of Admission: 10/14/23
Date of Discharge: 10/25/23
-
Pending Results: No
Hospital Course
Principal Diagnosis:
Right femoral neck fracture, status post right hip hemiarthroplasty 10/[address] Corbett
Acute post op blood loss anemia
Chronic Diagnoses:�
Recent MRSA bacteremia secondary to right gluteal wound, completed daptomycin on 10/16/2023
Spinal stenosis and functional paraplegia wheelchair-bound
Non insulin-dependent diabetes
Chronic anemia
Functional paraplegia/neuropathy secondary to spinal stenosis
Mitral regurgitation
Hypertension
Hyperlipidemia
Peripheral vascular disease
Prostatic hypertrophy
Thrombocytosis
Diverticulosis
Morbid obesity
Depression, on venlafaxine
Insomnia on Ambien
History of DVT more than 5 years ago, on Eliquis 5 mg twice daily as outpatient
Consultations:�
Infectious disease
Orthopedic
Procedures:�
Right hip hemiarthroplasty 10/[address] Cobrett
Clinical course:�
This is a 83-year-old male with past medical history as stated above, who presented with right hip pain following a fall. He was transitioning to wheelchair from bed and landed on the floor.
Problem 1:
Right femoral neck fracture.
Of note, this is on the same leg as his recent Right gluteal wound resulting in MRSA bacteremia.
Per ID, he can stop further antibiotic. He has completed daptomycin on 10/16/2023.
The patient underwent right hip hemiarthroplasty on 10/[address] Corbett.
For DVT prophylaxis, he can low-dose Eliquis 2.5 mg twice daily x3 days (completed during his hospital stay), followed by full dose Eliquis 5 mg twice daily (as from prior to admission) going forward.
He can continue Tylenol and oxycodone as needed for pain control.
Per orthopedic, he should maintain surgical dressing for 7 to 10 days postop. Then follow-up with Ortho outpatient.
Problem 2:
Acute post op blood loss anemia.
His hemoglobin improved from 7.4 to 8.3 following 1 unit PRBC transfusion.
He can check repeat CBC outpatient with result to his PCP for hemoglobin monitoring.
As for the rest of his medical problems, they were stable during his hospital stay.
Discharge Plan
-
Patient Disposition: Skilled Nursing/SNF
Discharge Diagnosis/Procedures: Right femoral neck fracture status post right hip hemiarthroplasty 10/[address] Corbett; acute post op blood loss anemia
Condition: Fair
Diet: As tolerated, Low Fat and Low Cholesterol
Activity: As tolerated
Additional Activity: with assistive devices
Driving Restrictions: Not until seen by your Dr
Bathing Restrictions: OK to Shower
Blood Work: CBC in 1 week with result to your PCP
Wound Care: Wound Care Instructions
Right Buttock Wound- Clean proximal and distal parts of wound with normal saline and cover with Xeroform and silicone foam. Change Q 2 days and PRN if loose or soiled.
Air surface
Turning schedule
Frequent continence care
Keep heels off-loaded with pillows under calves
Follow up at wound care center call for an appointment.
Activity Restrictions/Additional Instructions:
Maintain hip dressing for 7-10 days, then can remove.
Referrals:
Payam De Souza I., DO [Family Provider] - in less than 1 week
Payam Corbett MD [Active] - (follow-up 2 weeks from date of surgery for suture/staple removal and wound check; if discharged to a senior care facility, this may be done there and can instead follow-up with the office at 4 weeks from date
of surgery)
Additional Discharge Medication Instructions: Your Losartan was decreased from 50 to 25 mg daily, continue with hold parameter.
Your Lopressor was decreased from 50 mg twice daily to 25 mg twice daily, continue with hold parameter.
Stop HCTZ
Continue Tylenol and oxycodone for pain control.
Prescriptions:
New
oxycodone 5 mg Tablet
5 mg PO Q4HPRN PRN (Reason: moderate pain) Qty: 10 0RF
losartan 50 mg Tablet
25 mg PO DAILY Qty: 30 0RF
Rx Instructions:
hold for SBP < 110
metoprolol tartrate 50 mg Tablet
25 mg PO BID Qty: 60 0RF
Rx Instructions:
hold for SBP < 110
Continued
acetaminophen [Tylenol] 325 mg Tablet
650 mg PO Q6HPRN PRN (Reason: mild pain, general discomfort)
cetirizine [Zyrtec] 10 mg Tablet
10 mg PO DAILY
atorvastatin [Lipitor] 10 mg Tablet
10 mg PO HS
Hold Instructions: Resume on 10/17/23. Resume this medication only after finishing taking Daptomycin.
Patient Comments:
10/14/23: on hold from prior discharge, resume on 10/17/23
psyllium Packet
1 packet PO DAILY
dextromethorphan-guaifenesin 10-100 mg/5 mL Syrup
10 ml PO Q6HPRN PRN (Reason: cough)
magnesium hydroxide [Milk of Magnesia] 400 mg/5 mL Suspension
2,400 mg PO [id number] PRN (Reason: if no bm on 3rd day)
bisacodyl [Dulcolax (bisacodyl)] 10 mg Suppository
10 mg [place] DAILYPRN PRN (Reason: if no bm aftr mom)
metformin 1,000 mg Tablet
1,000 mg PO BID
zolpidem 10 mg Tablet
10 mg PO HS
Januvia 100 mg Tablet
100 mg PO DAILY
Eliquis 5 mg Tablet
5 mg PO BID
loperamide 2 mg Capsule
2 mg PO Q6HPRN PRN (Reason: diarrhea)
miconazole nitrate [Antifungal (miconazole)] 2 % Powder
1 applic TOPICAL BID
Patient Comments:
10/14/23: starting on 10/14/23, ending on 10/28/23
therapeutic multivitamin Tablet
1 tab PO DAILY
mineral oil [Mineral Oil Light] Oil
1 applic TOPICAL DAILY
cholecalciferol (vitamin D3) [Vitamin D3] 25 mcg (1,000 unit) Tablet
50 mcg PO DAILY
venlafaxine 150 mg Tablet Extended Release 24hr
150 mg PO DAILY
Discontinued
losartan 50 mg Tablet
50 mg PO DAILY
metoprolol tartrate [Lopressor] 50 mg Tablet
50 mg PO BID
hydrochlorothiazide 25 mg Tablet
25 mg PO DAILY
Hold Instructions: Resume on 10/24/23. Do not resume this medication until and unless advised to do so by your outpatient physicians.
Patient Comments:
10/14/23: on hold from prior discharge, resume on 10/24/23
DAPTOmycin [Cubicin] 1000 MG
Syringe [Syringe-Pump] 0 ML
As Directed mls/hr IV Q24H
Ordered By: Christiano Sánchez MD
Last Taken: Unknown
Patient Comments:
10/14/23: start on 10/14/23, end on 10/17/23
Discharge Orders:
Discharge Patient (As Directed); Ordered 10/25/23
Ordered By: Susana Kate
Discharge Date and Time
Print Language: CHINESE
[2023-10-25 15:35] VITALS: BP 123/76
== END 2023-10-25 16:42 | DRG 522 ==
LOC: 2 NORTH 19:37
PROVIDERS: Clinical Nurse Specialist Family Health; Hospitalist; Internal Medicine; Orthopaedic Surgery; ADMITTING PHYSICIAN Hospitalist; ATTENDING PHYSICIAN Internal Medicine; CONSULT PHYSICIAN Internal Medicine Infectious Disease; EMERGENCY PHYSICIAN Emergency Medicine; FAMILY PHYSICIAN Internal Medicine; OTHER PHYSICIAN Student in an Organized Health Care Education/Training Program
PROC: 0SRR0J9 Replacement of Right Hip Joint, Femoral Surface with Synthetic Substitute, Cemented, Open Approach (ICD-10-PCS; 2023-10-22)
PROC: 30233N1 Transfusion of Nonautologous Red Blood Cells into Peripheral Vein, Percutaneous Approach (ICD-10-PCS; 2023-10-24)
DX: S72.011A Unspecified intracapsular fracture of right femur, initial encounter for closed fracture (principal); D62 Acute posthemorrhagic anemia; W06.XXXA Fall from bed, initial encounter; L89.312 Pressure ulcer of right buttock, stage 2; F44.4 Conversion disorder with motor symptom or deficit; R50.9 Fever, unspecified; M48.00 Spinal stenosis, site unspecified; Z86.14 Personal history of Methicillin resistant Staphylococcus aureus infection; Z86.19 Personal history of other infectious and parasitic diseases; G62.9 Polyneuropathy, unspecified; I10 Essential (primary) hypertension; E78.5 Hyperlipidemia, unspecified; G47.00 Insomnia, unspecified; F32.A Depression, unspecified; E11.51 Type 2 diabetes mellitus with diabetic peripheral angiopathy without gangrene; D75.839 Thrombocytosis, unspecified; I87.2 Venous insufficiency (chronic) (peripheral); K59.00 Constipation, unspecified; E66.01 Morbid (severe) obesity due to excess calories; D53.9 Nutritional anemia, unspecified; I34.0 Nonrheumatic mitral (valve) insufficiency; N40.0 Benign prostatic hyperplasia without lower urinary tract symptoms; Z68.32 Body mass index [BMI] 32.0-32.9, adult; Z86.718 Personal history of other venous thrombosis and embolism; Z99.3 Dependence on wheelchair; Z11.52 Encounter for screening for COVID-19; Z79.84 Long term (current) use of oral hypoglycemic drugs; Z79.01 Long term (current) use of anticoagulants
CPT/HCPCS: 71045; 73502; 80048; 80053; 81003; 81015; 82607; 82728; 82962; 83540; 83550; 83605; 83735; 84100; 84145; 85025; 85027; 86850; 86900; 86901; 86920; 87040; 87070; 87071; 87077; 87086; 87186; 87205; 87811; 93005; 97163; 97167; 99285; C1713; C1776; J0878; P9016

== ENCOUNTER 2024-07-28 04:25 | Emergency (ER) | payer MEDICARE, SELFPAY ==
[2024-07-28 04:29] VITALS: BP 153/90; BMI 27.2
--- NOTE | 2024-07-28 05:27 | ED.MUSCINJ ---
HPI-Injury
General
Chief Complaint: Fall
Source: patient and ambulance crew
Exam Limitations: none
Time Seen by Provider: 07/28/24 04:29
Nursing documentation reviewed up to this point in time: agreed with
History of Present Illness-Injury
Initial Injury comments:
Pleasant 84-year-old male who presents to the emergency department via EMS from [facility]. Patient was sitting on the edge of the bed. He states that he fell over striking his head and left shoulder on a piece of furniture. Patient denies
loss of consciousness. He states that aside from sustaining a bump on his head. Patient also states that he does have some right elbow pain. He has full range of motion in the right elbow. Patient states that at his gluteal cleft he has some
pain. He reports it has been present for some time, he wanted it evaluated.
Review of Systems
Review of Systems
Allergies reviewed?: Yes
All Other Systems: ROS reviewed and negative except as documented in HPI and ROS
Musculoskeletal: Reports joint pain and muscle stiffness
Skin: Reports other (Small abrasion in between the right third and fourth toe)
Psychiatric: Reports anxiety
Skin Exam
Abrasion
Buttock:
Description of abrasion: superfical/clean (no obvious pilonidal cyst)
Fourth Toe:
Description of abrasion: superfical/clean
Phy Exam
General Physical Exam
General Presentation: well appearing and no apparent distress
General Skin: warm and dry
General Habitus: normal
General Mental: alert
General Hydration: appears well hydrated
ENT Exam
ENT Exam: EOMI, pharynx normal, neck supple and normocephalic
Eye Exam
Eye Exam: PERRL, cornea clear and conjunctiva normal
Cardiovascular Exam
Cardiovascular Exam: regular rate/rhythm, no edema, no murmur and normal peripheral pulses
Pulmonary Exam
Pulmonary Exam: lungs clear, no respiratory distress, no rales, no crackles, no rhonchi, no stridor, no wheezing and no cough
Gastrointestinal Exam
Gastrointestinal Exam: normal bowel sounds, non tender, soft, no organomegaly, no pulsatile mass and non distended
Neurological Exam
Neurological Exam: alert, oriented x3, no motor deficits and speech normal
Musculoskeletal Exam
Musculoskeletal Exam: full ROM and no edema
Skin Exam
Skin Exam: other (A small abrasion to the medial side of the right toe. Bleeding is controlled. At the gluteal cleft there is an area of excoriation likely the start of a pilonidal cyst. There is no drainable abscess at this time.)
Psychiatric Exam
Psychiatric Exam: normal mood/affect
Injury Course
Orders/Labs/Results
Orders:
Orders
07/28/24 04:33
CT Cervical Spine W/o Iv Contr Urgent
Comment:
Reason For Exam: fall
CT Head W/o Iv Contrast Urgent
Comment:
Reason For Exam: fall, contusion
*Critical Care Note
Total Time (30-74mins, 75-104mins- exclusive of procedures): Not Applicable
Update Note
Update Note:
Comparison October 02, 2022
CT abdomen and pelvis without IV contrast. Oral contrast given.
IMPRESSION:
Findings suggestive of a small bowel obstruction with a transition point in the right lower quadrant. The proximal small bowel is dilated up to 3.2 cm. There is moderate mesenteric congestion and trace free fluid. No pneumatosis or free air.
Small amount of pelvic free fluid. IUD is noted. Retroverted uterus.
ED Attending Note
-
Portions of this chart may have been created with voice recognition software.� Occasional wrong word or��sound alike� substitutions may have occurred due to the inherent limitations of voice recognition software.
Discharge Plan
Departure
Patient Disposition: Assisted/SNF
Date of Disposition: 07/28/24
Time of Disposition: 05:46
Patient with high blood pressure during this ER visit?: Yes
Condition: Good
Discharge Problem:
Fall, Head injury, Sacral wound, Abrasion
Prescriptions:
No Action
acetaminophen [Tylenol] 325 mg Tablet
650 mg PO Q6HPRN PRN (Reason: mild pain, general discomfort or temp >100)
atorvastatin [Lipitor] 10 mg Tablet
10 mg PO HS
Patient Comments:
10/14/23: on hold from prior discharge, resume on 10/17/23
psyllium Packet
1 packet PO DAILY
dextromethorphan-guaifenesin 10-100 mg/5 mL Syrup
10 ml PO Q6HPRN PRN (Reason: cough)
magnesium hydroxide [Milk of Magnesia] 400 mg/5 mL Suspension
2,400 mg PO [id number] PRN (Reason: if no bm on 3rd day)
bisacodyl [Dulcolax (bisacodyl)] 10 mg Suppository
10 mg MA DAILYPRN PRN (Reason: if no bm aftr mom)
metformin 1,000 mg Tablet
1,000 mg PO BID
zolpidem 10 mg Tablet
10 mg PO HS
Januvia 100 mg Tablet
100 mg PO DAILY
Eliquis 5 mg Tablet
5 mg PO BID
loperamide 2 mg Capsule
2 mg PO Q6HPRN PRN (Reason: diarrhea)
miconazole nitrate [Antifungal (miconazole)] 2 % Powder
1 applic TOPICAL BID
Patient Comments:
10/14/23: starting on 10/14/23, ending on 10/28/23
therapeutic multivitamin Tablet
1 tab PO DAILY
Mineral Oil Light Oil
1 applic TOPICAL DAILY
cholecalciferol (vitamin D3) [Vitamin D3] 25 mcg (1,000 unit) Tablet
50 mcg PO DAILY
losartan 50 mg Tablet
25 mg PO DAILY Qty: 30 0RF
Rx Instructions:
hold for SBP < 110
metoprolol tartrate 50 mg Tablet
25 mg PO BID Qty: 60 0RF
Rx Instructions:
hold for SBP < 110
oxycodone 5 mg tablet
5 mg PO Q6HPRN PRN (Reason: moderate pain)
venlafaxine 225 mg Tablet Extended Release 24hr
225 mg PO DAILY
cetirizine [Zyrtec] 10 mg Tablet
10 mg PO DAILYPRN PRN (Reason: allergies)
gabapentin 300 mg Capsule
300 mg PO TID
Interventions
Interventions:
*Risk Screen - Suicide Last Done: 07/28/24 04:29
*General Assessment Last Done: 07/28/24 04:29
*Neglect/Abuse Screening Last Done: 07/28/24 04:29
*ED- Fall Risk Assessment Last Done: 07/28/24 04:29
*ED COVID-19 Vaccine History Last Done: 07/28/24 04:29
ED-Musculoskeletal Assessment Last Done: 07/28/24 04:45
ED- Neurological Assessment Last Done: 07/28/24 04:43
ED-Skin Assessment Last Done: 07/28/24 04:43
Discharge Date and Time
Print Language: CITIZEN OF [place]
[2024-07-28 05:51] VITALS: BP 141/83
== END 2024-07-28 06:42 ==
LOC: EMR 04:25
PROVIDERS: EMERGENCY PHYSICIAN Student in an Organized Health Care Education/Training Program; FAMILY PHYSICIAN Internal Medicine
DX: S09.90XA Unspecified injury of head, initial encounter (principal); S30.91XA Unspecified superficial injury of lower back and pelvis, initial encounter; S90.414A Abrasion, right lesser toe(s), initial encounter; M25.521 Pain in right elbow; W06.XXXA Fall from bed, initial encounter; W22.09XA Striking against other stationary object, initial encounter
CPT/HCPCS: 99284; 70450; 72125

== ENCOUNTER → 2024-08-10 09:49 | Outpatient (REF) | payer MEDICARE, MEDICAID, OTHER, SELFPAY | LOC: HWRAD 09:49 | PROVIDERS: FAMILY PHYSICIAN Internal Medicine | DX: M54.50 Low back pain, unspecified (principal); Z91.81 History of falling | CPT/HCPCS: 72128 ==